=== PATIENT | female | born 1990 | race Caucasian/White ===

== ENCOUNTER 2023-12-06 05:48 | Inpatient (IN) ==
--- NOTE | 2023-11-29 11:40 | PAT Medication Instructions ---
Medication Instructions Date of Service November 29, 2023 Home Medications Medication Instructions Recorded acetone (urine) test (Ketone Urine #50 ea 07/20/23 Test strips) blood sugar diagnostic (OneTouch #150 ea 07/20/23 Verio test strips) blood-glucose meter (OneTouch #1 ea 07/20/23 Verio Reflect Meter) lancets 33 gauge (OneTouch Delica #150 ea 07/20/23 Plus Lancet) aspirin 81 mg chewable tablet 81 mg PO QAM labetalol 300 mg tablet 500 mg PO TID nifedipine 60 mg PO BID vit no.95-ferrous fumarate 28 mg-folic acid 800 mcg tablet () 1 tab PO QPM famotidine 20 mg tablet (Pepcid) 20 mg PO BID ASK your prescriber and surgeon aspirin 81 mg chewable tablet 81 mg PO QAM Take morning of surgery With a small sip of water, OTHERWISE NOTHING TO EAT OR DRINK AFTER MIDNIGHT: labetalol 300 mg tablet 500 mg PO TID nifedipine 60 mg PO BID famotidine 20 mg tablet (Pepcid) 20 mg PO BID Take evening before surgery labetalol 300 mg tablet 500 mg PO TID nifedipine 60 mg PO BID vit no.95-ferrous fumarate 28 mg-folic acid 800 mcg tablet () 1 tab PO QPM famotidine 20 mg tablet (Pepcid) 20 mg PO BID Other Notes If you have any questions please call us at [phone] or [phone] or [phone] or [phone]
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
[2023-12-06] MEDS: LACTATED RINGER'S 1,000 ML IV SCH ×3 (06:32→12:05)
[2023-12-06 06:40] LABS: Basophils # (auto) 0.05 K/uL (0.00-0.20); Basophils % (auto) 0.7 %; Eosinophils # (auto) 0.07 K/uL (0.00-0.50); Eosinophils % (auto) 0.9 %; Hematocrit (blood only) 40.4 % (37.0-47.0); Hemoglobin 13.3 g/dl (12.0-16.0); Immature Granulocytes # (auto) 0.09 K/uL (0.01-0.20); Immature Granulocytes % (auto) 1.2 %; Lymphocytes # (auto) 2.22 K/uL (1.20-3.40); Lymphocytes % (auto) 29.5 %; Mean Corpuscular Hemoglobin 26.2 pg (25.0-34.0); Mean Corpuscular Hgb Conc 32.9 g/dL (32.0-36.0); Mean Corpuscular Volume 79.5 fL (80.0-100.0); Mean Platelet Volume 11.2 fL (9.4-12.4); Monocytes # (auto) 0.38 K/uL (0.11-0.59); Monocytes % (auto) 5.1 %; Neutrophils # (auto) 4.71 K/uL (1.40-6.50); Neutrophils % (auto) 62.6 %; Nucleated RBC # (auto) 0.03 K/uL (0.00-0.12); Nucleated RBC % (auto) 0.4 %; Platelet Count 225 K/uL (130-400); RDW Coefficient of Variation 15.4 % (11.5-14.5); RDW Standard Deviation 43.6 fL (36.4-46.3); Red Blood Count 5.08 M/uL (4.20-5.40); White Blood Count 7.52 K/ul (4.8-10.8)
[2023-12-06] MEDS ORDERED: PHENYLEPHRINE HCL 10 MG/ML VIAL ONE (06:49)
[2023-12-06] MEDS ORDERED: fentaNYL citrate PF 100 MCG/2 ML VIAL ONE ×2 (06:49→08:49)
[2023-12-06] MEDS ORDERED: MoRPHine SULFATE PF 1 MG/ML 10 ML AMP/VIAL ONE (06:49)
[2023-12-06] MEDS ORDERED: OXYTOCIN 10 UNITS/ML VIAL ONE ×2 (06:49→07:44)
[2023-12-06 06:55] LABS: Calcium 8.6 mg/dl (8.6-10.3); Creatinine Clr Calc Pharmacy 127.7 ml/min; Est GFR (African American) 106.6 ml/min; Potassium 4.5 mmol/L (3.5-5.1)
[2023-12-06] MEDS: ONDANSETRON INJ 2 MG/ML 2 ML VIAL ONE (06:57)
[2023-12-06] MEDS ORDERED: ePHEDrine sulfate 50 MG/ML AMP IV PRN (07:04)
[2023-12-06] MEDS ORDERED: NALOXONE HCL 1 MG in SODIUM CHLORIDE 0.9% 1,000 ML IV PRN (07:04)
[2023-12-06] MEDS ORDERED: diphenhydrAMINE 50 MG/ML VIAL IV PRN (07:04)
[2023-12-06] MEDS ORDERED: NALOXONE HCL 0.4 MG/1 ML VIAL/CARP IV PRN (07:04)
[2023-12-06] MEDS ORDERED: MoRPHine SULFATE 2 MG/ML CARP IV PRN (07:04)
[2023-12-06] MEDS ORDERED: LACTATED RINGER'S 500 ML IV PRN (07:04)
[2023-12-06] MEDS ORDERED: ONDANSETRON INJ 2 MG/ML 2 ML VIAL IV PRN ×2 (07:04→07:08)
[2023-12-06] MEDS ORDERED: NALOXONE HCL 0.08 MG in SYRINGE 1.8 ML IV PRN (07:04)
[2023-12-06 07:08] LABS: Partial Thromboplastin Time 27 Seconds (21-31); Prothrombin Time 11.2 Seconds (9.0-12.0)
[2023-12-06] MEDS ORDERED: DC INTRASPINAL MORPHINE SCH (07:15)
[2023-12-06] MEDS ORDERED: NO NARCOTICS OR SEDATIVES SCH (07:15)
--- NOTE | 2023-12-06 07:26 | History & Physical Bridge Note ---
Date of Service December 06, 2023 History & Physical Bridge Note I have examined the patient, reviewed the History & Physical and in the interval since the performance of the History & Physical I have noted the following changes of clinical significance: no changes noted
[2023-12-06] MEDS: cefOXitin 2,000 MG in DEXTROSE 5 % MINI-B 50 ML IV SCH (07:32)
[2023-12-06] MEDS: CITRIC ACID/SODIUM CITRATE 15 ML UDC PO SCH (07:38)
[2023-12-06] MEDS: OXYTOCIN 10 UNITS/ML 10ML VIAL IM ONE (08:24)
[2023-12-06 08:53] LABS: Base Excess Cord Arterial Bld -5.5 mEq/L (-9-1.8); Base Excess Cord Venous Blood -2.2 mEq/L (-7.7-1.9); CO2 Cord Arterial Blood 82 mmHg (39.1-73.5); Cord Venous Blood HCO3 26 mmol/L (18.4-26.8); Cord Venous Blood PCO2 53 mmHg (30.4-57.2); Cord Venous Blood PO2 26 mmHg (14.1-43.3); Cord Venous Blood pH 7.29 (7.20-7.44); HCO3 Cord Arterial Blood 27 mmol/L (19.7-28.5); O2 Saturation Cord Venous Bld < 60.0 % (<68); Oxygen Sat Cord Arterial Blood < 60.0 % (<60); PO2 Cord Arterial Blood < 20 mmHg (4.1-31.7); pH Cord Arterial Blood 7.12 (7.1-7.38)
[2023-12-06] MEDS ORDERED: HYDROCORTISONE ACETATE 25 MG SUPP PR PRN (09:07)
[2023-12-06] MEDS ORDERED: BENZOCAINE 20% SPRY 85 APPLN/85 GM CAN EXT PRN (09:07)
[2023-12-06] MEDS ORDERED: SENNA 8.6 MG TAB PO PRN (09:07)
--- NOTE | 2023-12-06 09:16 | Operative Report ---
Post Operative Report Pre & Post Diagnosis Operation Date: 12/06/23 07:30 Pre-Op Diagnosis: Severe Hypertension, Gestastional Diabetes Post-Op Diagnosis: Same; Delivery of Live female child @0805 I identified the patient and participated in the time-out.: Yes Procedure Operation Date: 12/06/23 07:30 Actual Procedures p Section in LD(Bilateral) - Tanner Figueroa MD Surgeon Tanner Figueroa MD Silk Screen Printer Ajith Estimated Blood Loss 600 Findings Consistent with Post-Op Diagnosis light meconium live infant Specimens placenta Drains none Anesthesia Type Spinal Complications none Indications severe hypertension gestational diabetes graves disease Description of Procedure Patient was brought to the OR correctly identified by armband and conversation. Styles catheter was inserted aseptically into the bladder connected to gravity drainage. Lower abdomen was painted with an alcohol-based sterilizing solution. Compression stockings were applied. Patient was draped in usual sterile fashion. Adequacy of the anesthesia was checked and found to be good. Pfannenstiel incision was made and carried down to the anterior fascia by blunt and sharp dissection. Fascia was incised transversely from the underlying muscle by blunt and sharp dissection. Recti muscles were in the midline. Peritoneum was carefully raised and entered. Lower uterine segment was exposed. An incision was made above the vesicouterine fold. The bladder was advanced out of the operative field. Lower uterine segment was scored with a knife and then entered with the scissors. Light meconium was noted at this time. A pectus retractor was applied to the infant's head. Pressure was applied. There was some difficulty in delivering the head. Recti muscles on the left side were cut in a small area to provide additional room. Head was then delivered was suctioned through the mouth and the nose. Cord was allowed to pulse for 1 minute. Clamped and cut. Infant was attended to by the cement loader who is scrubbed and present at the time of the delivery. Cord was sent for cord gases. Cord blood was taken. The placenta was removed manually. Uterus tubes and ovaries were brought out through the incision. Lower uterine segment was exposed. Uterus was wiped clean with a clean sponge. 10 units of Pitocin was injected into the muscle. The lower uterine defect was approximated in 2 layers. First layer was a running heavy duty chromic layer second was a layer of Vicryl placed in a horizontal fascia. Approximating the fascial layer. 2 interrupted [id number] sutures were also placed to can help control the bleeding. Then the peritoneum was brought together over this approximation. This restored the integrity of the vesicouterine fold. The incision was checked found to be hemostatic. Pelvis was cleansed of all blood clots and debris. Uterus tubes and ovaries were reinserted into the abdomen. A careful anatomical approximation of the anterior abdominal wall was performed. The peritoneum was approximated with a mattress suture of chromic catgut. The small cut on the right rectus muscle was repaired with a running chromic gut suture. The rectus muscles were then approximated. This was done with a Chromic Gut suture. Fascia was closed with heavy-duty Vicryl. The fascial defect was clamped on the right angle than the left angle. And then approximated with wide bites of Vicryl with a interlocking suture. Incision was then cleaned. Subcutaneous was approximated with a running chromic and then the skin edge approximated with staple clips patient tolerated procedure well left the OR in good condition. I attest to the content of the Intraoperative Record and any orders documented therein. Any exceptions are noted below.
[2023-12-06] MEDS: OXYTOCIN 30 UNITS/LR 1,003 ML IV SCH (09:47)
[2023-12-06] MEDS: NIFEdipine EXTENDED REL 30 MG TABCR PO SCH (10:31)
--- NOTE | 2023-12-06 11:06 | Anesthesiology Progress Note ---
Date of Service December 06, 2023 Anesthesia Post Procedure Vital Signs Vital Signs: Temp Pulse Resp BP Pulse Ox 12/06/23 11:05 69 97 12/06/23 11:00 66 97 12/06/23 10:57 62 130/83 12/06/23 10:55 66 99 12/06/23 10:50 70 97 12/06/23 10:47 67 127/84 12/06/23 10:45 18 12/06/23 10:45 64 98 12/06/23 10:40 66 98 12/06/23 10:37 67 158/92 H 12/06/23 10:35 68 98 12/06/23 10:30 62 98 12/06/23 10:27 65 149/87 H 12/06/23 10:25 62 99 12/06/23 10:20 70 98 12/06/23 10:17 63 145/84 H 12/06/23 10:15 18 12/06/23 10:15 69 98 12/06/23 10:10 66 98 12/06/23 10:07 70 149/86 H 12/06/23 10:05 18 12/06/23 10:05 71 98 12/06/23 10:00 65 98 12/06/23 09:58 66 127/81 12/06/23 09:57 67 143/96 H 12/06/23 09:55 18 12/06/23 09:55 69 98 12/06/23 09:50 68 98 12/06/23 09:47 70 139/86 12/06/23 09:45 18 12/06/23 09:45 66 99 12/06/23 09:40 63 97 12/06/23 09:37 60 135/83 12/06/23 09:35 18 12/06/23 09:35 67 97 12/06/23 09:30 63 97 12/06/23 09:27 60 126/77 12/06/23 09:25 18 12/06/23 09:25 67 97 12/06/23 09:22 70 93 12/06/23 09:20 67 96 12/06/23 09:16 67 93 12/06/23 09:15 36.4 C L 18 12/06/23 09:15 62 97 12/06/23 09:14 68 119/74 12/06/23 07:40 36.4 C L 18 12/06/23 06:07 80 116/76 Pain Intensity Lower Abdomen: Pain Intensity: 6 Transfer of Care Handoff Completed per policy Notes Mental Status: alert / awake / arousable and participated in evaluation Patient Amnestic to Procedure: Yes Nausea / Vomiting: adequately controlled Pain: adequately controlled Airway Patency, RR, SpO2: stable & adequate BP & HR: stable & adequate Hydration State: stable & adequate Anesthetic Complications: no major complications apparent and Pt Satisfied with anesthetic care
[2023-12-06] MEDS: KETOROLAC 30 MG/ML VIAL IV PRN (11:31)
[2023-12-06] MEDS: HYDROmorphone INJ 0.5 MG/0.5 ML SYR IV PRN (12:50)
[2023-12-06] MEDS: SIMETHICONE 80 MG CHEW PO SCH (14:21)
[2023-12-06] MEDS: NALBUPHINE HCL 5 MG in SYRINGE 0 ML IV PRN (18:10)
[2023-12-06] MEDS: DOCUSATE SODIUM 100 MG CAP PO SCH (20:58)
[2023-12-06] MEDS: LABETALOL HCL 100 MG TAB PO SCH (21:00)
[2023-12-07] MEDS ORDERED: MEPERIDINE HCL 50 MG/ML CARP IV PRN (01:04)
[2023-12-07] MEDS ORDERED: PROMETHAZINE HCL 25 MG in SODIUM CHLORIDE 0.9% 50 ML IV PRN (01:04)
[2023-12-07] MEDS ORDERED: ZOLPIDEM TARTRATE 5 MG TAB PO PRN (01:04)
[2023-12-07] MEDS ORDERED: diphenhydrAMINE 50 MG/ML VIAL IV PRN (01:04)
[2023-12-07] MEDS ORDERED: ONDANSETRON INJ 2 MG/ML 2 ML VIAL IV PRN (01:04)
[2023-12-07] MEDS ORDERED: KETOROLAC 30 MG/ML VIAL IV PRN (01:04)
[2023-12-07] MEDS ORDERED: diphenhydrAMINE Capsule 25 MG CAP PO PRN (01:04)
[2023-12-07] MEDS: oxyCODONE/ACETAMINOPHEN 5mg/325mg TAB PO PRN (01:18)
[2023-12-07] MEDS: IBUPROFEN 600 MG TAB PO PRN (04:35)
[2023-12-07 07:12] LABS: Basophils # (auto) 0.05 K/uL (0.00-0.20); Basophils % (auto) 0.4 %; Eosinophils # (auto) 0.08 K/uL (0.00-0.50); Eosinophils % (auto) 0.7 %; Hematocrit (blood only) 34.2 % (37.0-47.0); Hemoglobin 10.7 g/dl (12.0-16.0); Immature Granulocytes # (auto) 0.08 K/uL (0.01-0.20); Immature Granulocytes % (auto) 0.7 %; Lymphocytes # (auto) 2.44 K/uL (1.20-3.40); Lymphocytes % (auto) 21.3 %; Mean Corpuscular Hemoglobin 25.6 pg (25.0-34.0); Mean Corpuscular Hgb Conc 31.3 g/dL (32.0-36.0); Mean Corpuscular Volume 81.8 fL (80.0-100.0); Mean Platelet Volume 11.1 fL (9.4-12.4); Monocytes # (auto) 0.52 K/uL (0.11-0.59); Monocytes % (auto) 4.5 %; Neutrophils # (auto) 8.28 K/uL (1.40-6.50); Neutrophils % (auto) 72.4 %; Platelet Count 196 K/uL (130-400); RDW Coefficient of Variation 15.5 % (11.5-14.5); RDW Standard Deviation 45.1 fL (36.4-46.3); Red Blood Count 4.18 M/uL (4.20-5.40); White Blood Count 11.45 K/ul (4.8-10.8)
--- NOTE | 2023-12-07 07:47 | Obstetrical Progress Note ---
Date of Service December 07, 2023 Assessment & Plan Admission and Anticipated Discharge Date Admission Date: December 06, 2023 Subjective abdomen soft and non tender bandage removed incision is clean and dry bowel sounds present no calf tenderness vaginal bleeding scant hgb 10.7 Results & Data Vital Signs (Past 12 Hours) Vital Signs Temp Pulse Resp BP Pulse Ox O2 Del Method 12/07/23 04:30 Room Air 12/07/23 04:30 36.5 C 69 18 109/70 95 Room Air 12/07/23 01:05 20 95 12/07/23 00:00 18 95 12/06/23 23:00 18 95 12/06/23 23:00 36.8 C 76 18 124/77 95 Room Air 12/06/23 22:10 16 95 12/06/23 21:02 18 95 12/06/23 21:02 74 18 120/74 95 Room Air 12/06/23 20:20 16 95
[2023-12-07] MEDS: MAGNESIUM HYDROXIDE SUSP 30 ML UDC PO PRN (08:53)
[2023-12-07] MEDS: FERROUS SULFATE 325 MG TAB PO SCH (08:53)
[2023-12-07] MEDS: PRENATAL VITAMIN 1 TAB PO SCH (08:53)
[2023-12-07] MEDS: DIPHTHER/TETAN/PERTUS Vaccine (Tdap, Adol/Adult) 0.5mL IM ONE (17:25)
[2023-12-07] MEDS: MoRPHine SULFATE PF 1 MG/ML 10 ML AMP/VIAL INT SPINAL ONE (19:36)
[2023-12-07] MEDS: SODIUM CHLORIDE 0.9% 1,000 ML IV SCH (19:36)
[2023-12-07] MEDS: bisacodyL 5 MG TABEC PO SCH (20:20)
[2023-12-08 06:24] LABS: Hematocrit (blood only) 33.9 % (37.0-47.0)
--- NOTE | 2023-12-08 08:00 | Obstetrical Progress Note ---
Date of Service December 08, 2023 Assessment & Plan Admission and Anticipated Discharge Date Admission Date: December 06, 2023 Subjective abdomen soft and non tender incision is clean and dry no calf tenderness ambulating well blood pressure elevated vaginal bleeding scant hgb 11.0 Results & Data Vital Signs (Past 12 Hours) Vital Signs Temp Pulse Resp BP Pulse Ox O2 Del Method 12/07/23 22:58 36.7 C 74 18 133/85 96 Room Air
--- NOTE | 2023-12-08 08:23 | Discharge Summary ---
Date of Service December 08, 2023 Discharge Data Consultations 12/06/23 06:04 Consult Anesthesiology Stat Procedures Performed Operation Date: 12/06/23 07:30 Actual Procedures p Section in LD(Bilateral) - Tanner Figueroa MD Hospital Course (1) Status post : Plan Patient is a 33-year-old 1 para 1 followed in our office for care and delivery. Her had multiple complications. She had Graves' disease. Severe hypertension. Gestational diabetes. She was well dated with a first trimester ultrasound. She had part of her care at [facility]. Eventually she was on high doses of both Procardia and labetalol in order to control the blood pressure. She checked her sugars regularly to control the gestational diabetes. After approximately 32 weeks she received a biophysical profile weekly along with an NST weekly. Her hypertension was well-controlled. She also took baby aspirin during her . She did received Celestone shots the and Monday prior to delivery. Monday prior to delivery she had a 8 out of 8 biophysical profile. The day of admission she was taken to the OR where she underwent primary low segment section. Light meconium was noted in the amniotic fluid at this time. weighed 7 pounds 14 ounces at 37 weeks and 2 days gestation. Postoperatively her hemoglobin was 11. He did require some postoperative antihypertensive meds. She was instructed to follow her blood pressures at [facility]. And she had prescriptions for both Procardia XL. And labetalol at home. She was instructed to call if she had any difficulties controlling her blood pressure. And instructed to return in 1 week for removal of the cece.
[2023-12-08] MEDS ORDERED: LABETALOL HCL 100 MG TAB PO PRN (08:44)
[2023-12-08] MEDS ORDERED: bisacodyL 10 MG SUPP PR PRN (09:08)
[2023-12-08] MEDS: NIFEdipine EXTENDED REL 30 MG TABCR PO SCH (09:14)
[2023-12-09 02:27] LABS: Basophils # (auto) 0.02 K/uL (0.00-0.20); Basophils % (auto) 0.2 %; Eosinophils # (auto) 0.09 K/uL (0.00-0.50); Eosinophils % (auto) 0.9 %; Hematocrit (blood only) 35.2 % (37.0-47.0); Hemoglobin 11.3 g/dl (12.0-16.0); Immature Granulocytes # (auto) 0.07 K/uL (0.01-0.20); Immature Granulocytes % (auto) 0.7 %; Lymphocytes # (auto) 2.07 K/uL (1.20-3.40); Lymphocytes % (auto) 21.5 %; Mean Corpuscular Hemoglobin 26.5 pg (25.0-34.0); Mean Corpuscular Hgb Conc 32.1 g/dL (32.0-36.0); Mean Corpuscular Volume 82.6 fL (80.0-100.0); Mean Platelet Volume 10.4 fL (9.4-12.4); Monocytes % (auto) 4.1 %; Neutrophils % (auto) 72.6 %; Platelet Count 247 K/uL (130-400); RDW Standard Deviation 47.7 fL (36.4-46.3); Red Blood Count 4.26 M/uL (4.20-5.40); White Blood Count 9.65 K/ul (4.8-10.8)
--- NOTE | 2023-12-09 02:32 | Obstetrical Progress Note ---
Date of Service December 09, 2023 Assessment & Plan Admission and Anticipated Discharge Date Admission Date: December 06, [address] Figueroa I was called that patient complained of blurry vision, headache, upper abdominal pain and incisional pain. She has history of migraines she was taking Tylenol only. Per nursing team she has been looking good clinically, moving around with the baby and trying for breast-feeding. When I entered the room she was standing and holding the baby moving around without any discomfort. She laid down to bed with the baby by herself without assistance. Her abdomen is soft nontender, incision is appropriately tender and clean dry intact. Her bleeding is minimal, Extremities are nontender, trace edema, DTR 3+ bilaterally, no clonus, Neurologic exam is grossly intact and she can see objects. Her blood pressure has been normal, The labetalol was ordered by Dr. Figueroa as 500 mg twice daily as needed if blood pressure is over 140/90, She is on nifedipine 60 mg XL daily, Assessment and plan, 33-year-old -0-0-1 status post primary on December 05, On labetalol and Procardia as above, Vital signs stable afebrile, Blood pressures are under control, Physical exam, neurologic exam normal, Plan to order labs and change labetalol dose to 100 mg twice daily, Magnesium oxide twice daily, start now, continue to monitor closely, All questions were answered. Results & Data Vital Signs (Past 12 Hours) Vital Signs Temp Pulse Resp BP Pulse Ox O2 Del Method 12/09/23 01:45 132/75 12/08/23 23:30 36.8 C 91 H 20 129/75 98 Room Air 12/08/23 19:45 36.8 C 79 18 120/74 98 Room Air 12/08/23 17:15 119/71 12/08/23 15:35 36.8 C 82 17 123/62 96 Room Air
[2023-12-09 02:33] LABS: Albumin Globulin Ratio 0.9 (0.9-2); Bilirubin,Total 0.3 mg/dl (0.2-1.0); Calcium 8.5 mg/dl (8.6-10.3); Creatinine Clr Calc Pharmacy 107.3 ml/min; Est GFR (African American) 86.3 ml/min; Est GFR (Non-African American) 74.5 ml/min; Globulin 3.5 gm/dl (2.5-4.0); Potassium 4.2 mmol/L (3.5-5.1); Total Protein 6.5 gm/dl (6.0-8.3)
[2023-12-09] MEDS: LABETALOL HCL 100 MG TAB PO SCH (02:34)
[2023-12-09] MEDS: MAGNESIUM OXIDE 400 MG TAB PO SCH (02:35)
[2023-12-09] MEDS: oxyCODONE/ACETAMINOPHEN 10-325 TAB PO PRN (03:44)
--- NOTE | 2023-12-09 10:15 | Obstetrical Progress Note ---
Date of Service December 09, 2023 Subjective Ambulation: ambulating normally Voiding: no voiding problems Passing Gas:: No Diet Tolerance:: regular diet Feeding Type:: breast feeding Current Pain Level(1-10): 0 doing well. plans for d/c Physical Exam Constitutional WD/WN, vitals as above Gastrointestinal (Abdomen) Inspection/Auscultation: abdomen normal to inspection incision c/d/i Musculoskeletal Extremities: extremities normal to inspection Skin no rashes, warm and dry Neurologic patellar DTR's 2+ bilat, sensation intact Psychiatric A+Ox3, euthymic affect Results & Data Vital Signs (Past 12 Hours) Vital Signs Temp Pulse Resp BP Pulse Ox O2 Del Method 12/09/23 07:30 36.6 C 75 18 131/75 Room Air 12/09/23 01:45 132/75 12/08/23 23:30 36.8 C 91 H 20 129/75 98 Room Air Laboratory Results Laboratory Results - last 48 hr 12/08/23 12/09/23 05:57 02:04 WBC 9.65 RBC 4.26 Hgb 11.0 L 11.3 L Hct 33.9 L 35.2 L MCV 82.6 MCH 26.5 MCHC 32.1 RDW Std Deviation 47.7 H RDW Coeff of Vu 16.0 H Plt Count 247 MPV 10.4 Immature Gran % (Auto) 0.7 Neut % (Auto) 72.6 Lymph % (Auto) 21.5 Logan % (Auto) 4.1 Eos % (Auto) 0.9 Baso % (Auto) 0.2 Neut # (Auto) 7.00 H Lymph # (Auto) 2.07 Logan # (Auto) 0.40 Eos # (Auto) 0.09 Baso # (Auto) 0.02 Immature Gran # (Auto) 0.07 Sodium 135 L Potassium 4.2 Chloride 104 Carbon Dioxide 23 Anion Gap 8 BUN 19 Creatinine 1.00 Est Cr Clr Drug Dosing 107.3 Est GFR ( Amer) 86.3 Est GFR (Non-Af Amer) 74.5 BUN/Creatinine Ratio 19.0 Glucose 109 H Calcium 8.5 L Total Bilirubin 0.3 AST 31 ALT 27 Alkaline Phosphatase 158 H Total Protein 6.5 Albumin 3.0 L Globulin 3.5 Albumin/Globulin Ratio 0.9
== END 2023-12-09 14:00 | disposition home or self-care (01) | DRG 788 ==
LOC: 4S1 05:48 → EDSTATUS 07:30 → 4E2 12:29
DX: Z3A.37 37 weeks gestation of pregnancy; Z79.899 Other long term (current) drug therapy; O14.14 Severe pre-eclampsia complicating childbirth; Z37.0 Single live birth; Z79.82 Long term (current) use of aspirin; O24.420 Gestational diabetes mellitus in childbirth, diet controlled; O77.0 Labor and delivery complicated by meconium in amniotic fluid; O99.284 Endocrine, nutritional and metabolic diseases complicating childbirth; E05.00 Thyrotoxicosis with diffuse goiter without thyrotoxic crisis or storm

== ENCOUNTER 2024-08-27 16:17 | Inpatient (IN) ==
--- NOTE | 2024-08-27 16:21 | ED Triage Note ---
Date of Service August 27, 2024 Provider in Triage Author: Angel Andrade History of Present Illness This patient was briefly evaluated while in triage. An abbreviated physical exam was performed. This patient is a 33-year-old Female who presents to the ED for evaluation upper abdominal under upper ribs started this morning nausea and vomiting-last few episodes have had some blood in it hx of appy and Physical Exam GENERAL: NAD CARDIOVASCULAR: RRR RESPIRATORY: CTA ABDOMEN: BS x 4. Upper abdominal TTP. Initial orders for labs and / or imaging were placed and patient was placed in the waiting area until a bed is available. Please see further documentation for the full ED course.
[2024-08-27 17:46] LABS: Basophils # (auto) 0.04 K/uL (0.00-0.20); Basophils % (auto) 0.4 %; Eosinophils # (auto) 0.04 K/uL (0.00-0.50); Eosinophils % (auto) 0.4 %; Hematocrit (blood only) 47.5 % (37.0-47.0); Hemoglobin 15.2 g/dl (12.0-16.0); Immature Granulocytes # (auto) 0.02 K/uL (0.01-0.20); Immature Granulocytes % (auto) 0.2 %; Lymphocytes # (auto) 1.45 K/uL (1.20-3.40); Lymphocytes % (auto) 15.4 %; Mean Corpuscular Hemoglobin 24.4 pg (25.0-34.0); Mean Corpuscular Volume 76.4 fL (80.0-100.0); Mean Platelet Volume 9.5 fL (9.4-12.4); Monocytes # (auto) 0.42 K/uL (0.11-0.59); Monocytes % (auto) 4.5 %; Neutrophils # (auto) 7.43 K/uL (1.40-6.50); Neutrophils % (auto) 79.1 %; Platelet Count 319 K/uL (130-400); RDW Coefficient of Variation 13.4 % (11.5-14.5); Red Blood Count 6.22 M/uL (4.20-5.40)
[2024-08-27 18:00] LABS: Pregnancy Test, Serum Negative (Negative)
[2024-08-27 18:02] LABS: Albumin Globulin Ratio 1.2 (0.9-2); Albumin Level 4.5 gm/dl (3.4-5.0); BUN Creatinine Ratio 17.6 (10-20); Calcium 9.4 mg/dl (8.6-10.3); Creatinine Clr Calc Pharmacy 147.8 ml/min; Globulin 3.9 gm/dl (2.5-4.0); Potassium 3.9 mmol/L (3.5-5.1); Total Protein 8.4 gm/dl (6.0-8.3)
[2024-08-27] MEDS: OPTIRAY 320 100ml IV ONE (18:31)
--- NOTE | 2024-08-27 18:46 | CT Scan Report ---
EXAM: CT Abdomen and Pelvis With Intravenous Contrast INDICATION: Awakened with severe pain in the rib cage and upper stomach and has been vomiting blood. TECHNIQUE: Axial computed tomography images of the abdomen and pelvis with intravenous contrast. Sagittal and coronal reformatted images were created and reviewed. This CT exam was performed using one or more of the following dose reduction techniques: automated exposure control, adjustment of the mA and/or kV according to patient size, and/or use of iterative reconstruction technique. CONTRAST: 93ml of Optiray 320 was administered intravenously. COMPARISON: 02/06/2024 FINDINGS: Limitations: None. Lung bases: No abnormality noted. Pleural space: No visualized pleural effusion or pneumothorax. Heart: No abnormality noted. Mediastinum: No abnormality noted. ABDOMEN: Liver: No abnormality noted. Gallbladder and bile ducts: The gallbladder is dilated and moderately thickened, mildly inflamed and contains stones. No ductal dilatation or stone. Pancreas: Homogeneous enhancement. No mass, inflammation or ductal dilation. Spleen: No significant abnormality noted. Adrenals: No significant abnormality noted. Kidneys and ureters: Normal enhancement. No mass, hydronephrosis or visualized stone. Stomach and bowel: Scattered colonic diverticulosis noted. No diverticulitis or obstruction. PELVIS: Appendix: Probable appendectomy. Bladder: No filling defects to suggest mass or large stone. No inflammation. Reproductive: No abnormalities noted. ABDOMEN and PELVIS: Intraperitoneal space: No free air. No significant fluid collection. Bones/joints: No acute changes. Soft tissues: No significant abnormality noted. Vasculature: No abdominal aortic aneurysm. Lymph nodes: No pathologically enlarged lymph nodes. IMPRESSION: Cholelithiasis with acute cholecystitis. ACT 112: Negative or not required by law. Electronically signed by Miranda Cruz 08-27-2024 6:45 PM
[2024-08-27] MEDS: ONDANSETRON INJ 2 MG/ML 2 ML VIAL IV STA (19:33)
[2024-08-27] MEDS: MoRPHine SULFATE 4 MG/ML 1 ML CARP\\VIAL IV STA (19:37)
[2024-08-27] MEDS: PROMETHAZINE 6.25 MG/50.25 ML BAG IV STA (19:40)
[2024-08-27] MEDS: SODIUM CHLORIDE 0.9% 1,000 ML IV ONE (19:42)
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
[2024-08-27] MEDS: FAMOTIDINE 20MG IV PUSH 20 MG/5 ML SYR IV STA (20:17)
--- NOTE | 2024-08-27 20:19 | Surgery Consultation ---
Date of Consultation August 27, 2024 Assessment & Plan (1) Acute cholecystitis: Patient is a 33-year-old female who presented to the ED this evening for ongoing upper abdominal pain, nausea and vomiting that started this morning. Patient was worked up in the ED and her WBC and LFTs are wnl. Patient's CT with results of cholelithiasis and thickening of the gallbladder concerning for acute cholecystitis. Patient was seen and evaluated in the ED this evening. She is resting comfortably in bed, stable vitals, and is nontoxic appearing. Patient does have TTP in the RUQ on exam. Reviewed patient's case with attending javad business continuity consultant, Dr. Torres, and surgical team recommends the following: -Clear liquids for now, NPO after midnight -Pain control as needed -IV antibiotics with Zosyn -Recommend gallbladder US, if consistent with acute cholecystitis without any CBD involvement will plan for cholecystectomy tomorrow. -Medical management of chronic conditions per primary team, surgery will continue to follow Supervising Physician Co-Signing Physician Notes I have discussed this case with the surgical PA. I agree with the plan. History of Present Illness Reason for Consultation: Acute cholecystitis History of Present Illness Patient is a 33-year-old female who presented to the ED with complaints of abdominal pain. Patient states this morning she started with upper epigastric abdominal pain with associated nausea and episodes of emesis. Patient states she tried to eat some toast earlier to help settle her stomach however it didn't work. She states she has never had pain like this in the past and is unsure if anything makes it better or worse. The pain has been constant in her upper abdomen since this morning and states it does not radiate. She did have some diarrhea a few days ago but this has since seemed to resolve. Over the last few days she has felt more bloated and overall has had decreased appetite. She denies any fevers, chills, CP or SOB with the onset of her symptoms. Due to her symptoms persisting throughout the day she came to the ED for evaluation. Upon workup imaging was concerning for acute cholecystitis. Patient was seen and evaluated at bedside this evening. She is resting comfortably in bed, stable vitals, and is nontoxic appearing. She states she is still having abdominal pain however her nausea and vomiting has since subsided. Patient on exam does have tenderness in her epigastric and RUQ region. She states she has had an open appendectomy as child along with a 8 months ago. Allergies Allergy/AdvReac Type Severity Reaction Status Date / Time No Known Drug Allergies Allergy Unknown Verified 05/23/24 15:15 Home Medications Medication Instructions Recorded Confirmed Type acetone (urine) test (Ketone Urine #50 ea 07/20/23 11/09/23 Rx Test strips) blood sugar diagnostic (OneTouch #150 ea 07/20/23 11/09/23 Rx Verio test strips) blood-glucose meter (OneTouch #1 ea 07/20/23 11/09/23 Rx Verio Reflect Meter) lancets 33 gauge (OneTouch Delica #150 ea 07/20/23 11/09/23 Rx Plus Lancet) levothyroxine 50 mcg tablet 50 mcg PO DAILY #90 tabs 04/09/24 05/23/24 Rx semaglutide 0.25 mg or 0.5 mg (2 0.25 mg (0.368 mL) subcut .weekly 05/23/24 05/23/24 Rx mg/3 mL) subcutaneous pen injector #3 mL (Peel) Patient History Medical History Restless leg syndrome Peripheral edema distal lower extremities bilat-denies change or worsening since seeing OB/PCP GERD (gastroesophageal reflux disease) controlled, stable per pt Graves disease [facility] endocrine Hypothyroidism [facility] endocrine Migraine Surgical History H/O lymph node biopsy Left and right groin, pathology = most suggestive of a bacterial lymphadenitis Family history of reaction to anesthesia Father- respiratory problems with anesthesia Family History Father Family history of diabetes mellitus Cardiac disorder [place] at age 54 y/o Mother Diabetes Cardiac disorder Hypertension Grandfather Diabetes Grandmother Diabetes Cardiac disorder Father Hypertension Uncle Thyroid disease Aunt No problems noted. Denies family history of Family hx of colon cancer Family history of complications due to general anesthesia Breast cancer Bleeding disorder Cancer Social History Smoking Status: Never smoker Second Hand Exposure: No; Do You Dip or Chew Tobacco: No; Tobacco Cessation Education Requested by Patient: No Hx Alcohol Use: No Hx Substance Use: No Preferred Language: Icelandic Communication Ability: Effective Visual Impairment: No Limitations Military Cook Required: No Beliefs That Will Affect Care: None marital status: Current Living Situation: Significant Other Current Living Situation Comment: sister and current occupational status: unemployed Other Information That Helps Us Care for You: No Feels Safe at Home: Yes Safety Concerns: Feels Safe At This Time Diet: diabetic Assistive Devices: Glasses Review of Systems Review of Systems: All systems reviewed & are unremarkable except as noted in HPI & below Physical Exam Constitutional: WD/WN, vitals as above Respiratory: normal respiratory effort, lungs clear to auscultation Cardiovascular: RRR, no murmur, no edema Gastrointestinal (Abdomen): Abdomen soft, nondistended, +TTP in the RUQ without rebound or guarding. +Healed scar appreciated Skin: no rashes, warm and dry Psychiatric: A+Ox3, euthymic affect Results & Data Vital Signs (Past 12 Hours) Vital Signs Temp Pulse Pulse Resp BP BP Pulse Ox 08/27/24 19:18 72 20 134/88 98 08/27/24 16:19 36.7 C 74 18 142/100 H 100 O2 Del Method 08/27/24 19:18 Room Air 08/27/24 16:19 Room Air Diagnostic Findings EXAM: CT Abdomen and Pelvis With Intravenous Contrast INDICATION: Awakened with severe pain in the rib cage and upper stomach and has been vomiting blood. TECHNIQUE: Axial computed tomography images of the abdomen and pelvis with intravenous contrast. Sagittal and coronal reformatted images were created and reviewed. This CT exam was performed using one or more of the following dose reduction techniques: automated exposure control, adjustment of the mA and/or kV according to patient size, and/or use of iterative reconstruction technique. CONTRAST: 93ml of Optiray 320 was administered intravenously. COMPARISON: 02/06/2024 FINDINGS: Limitations: None. Lung bases: No abnormality noted. Pleural space: No visualized pleural effusion or pneumothorax. Heart: No abnormality noted. Mediastinum: No abnormality noted. ABDOMEN: Liver: No abnormality noted. Gallbladder and bile ducts: The gallbladder is dilated and moderately thickened, mildly inflamed and contains stones. No ductal dilatation or stone. Pancreas: Homogeneous enhancement. No mass, inflammation or ductal dilation. Spleen: No significant abnormality noted. Adrenals: No significant abnormality noted. Kidneys and ureters: Normal enhancement. No mass, hydronephrosis or visualized stone. Stomach and bowel: Scattered colonic diverticulosis noted. No diverticulitis or obstruction. PELVIS: Appendix: Probable appendectomy. Bladder: No filling defects to suggest mass or large stone. No inflammation. Reproductive: No abnormalities noted. ABDOMEN and PELVIS: Intraperitoneal space: No free air. No significant fluid collection. Bones/joints: No acute changes. Soft tissues: No significant abnormality noted. Vasculature: No abdominal aortic aneurysm. Lymph nodes: No pathologically enlarged lymph nodes. IMPRESSION: Cholelithiasis with acute cholecystitis. PG Care Time/CCT Total # of Minutes Spent Total Time Spent with Patient: Total time spent is greater than 50% in coordination of care (as documented) at patient's floor/unit and/or counseling patient: [place] [address] Office/OBS Consult Lvl 1 Patient Type New Medical Decision Making Straight Forward Diagnoses Acute cholecystitis K81.0
[2024-08-27] MEDS: PANTOprazole 40 MG/10 ML SYR IV ONE (20:22)
[2024-08-27] MEDS: PIPERACILLIN/TAZOBACTAM 4.5 GM/100 ML BAG IV ONE (20:48)
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
[2024-08-27 21:49] LABS: Appearance Urine Clear (Clear); Bilirubin Urine Negative (Negative); Blood Urine Negative (Negative); Color Urine Yellow; Glucose Urine UA Negative (Negative); Ketones Urine Negative (Negative); Leukocyte Esterase Urine Negative (Negative); Nitrite Urine Negative (Negative); Protein Urine Negative (Negative); Specific Gravity Urine > 1.045 (1.000-1.030); Urobilinogen Urine Negative (Negative); pH Urine 8.5 (4.5-7.5)
[2024-08-27] MEDS ORDERED: MoRPHine SULFATE 2 MG/ML CARP IV PRN (23:18)
[2024-08-27] MEDS: MoRPHine SULFATE 4 MG/ML 1 ML CARP\\VIAL IV PRN (23:33)
--- NOTE | 2024-08-27 23:39 | Ultrasound Report ---
Exam(s): US GALLBLADDER EXAM: US Abdomen Limited, Right Upper Quadrant CLINICAL HISTORY: Reason for exam: ruq pain. TECHNIQUE: Real-time ultrasound of the right upper quadrant with image documentation. COMPARISON: CT abdomen pelvis dated 08/27/24 FINDINGS: Liver: Unremarkable. No mass. No intrahepatic bile duct dilation. Gallbladder: Multiple gallbladder stones, mostly mobile. Mild gallbladder wall thickening 0.4 cm. Negative sonographic Feliciano's. No pericholecystic fluid. Common bile duct: Unremarkable as visualized. No stones. No dilation. Common bile duct measures 0.4 cm in diameter. Pancreas: Unremarkable as visualized. Right kidney: Unremarkable. No stones. No solid mass. No hydronephrosis. IMPRESSION: Cholelithiasis with mild gallbladder wall thickening. Findings are equivocal for acute cholecystitis. Electronically signed by: Brad Nichols M.D. 08/27/24 23:38 PM
[2024-08-27] MEDS: PANTOprazole 40 MG/10 ML SYR IV SCH (23:44)
[2024-08-28] MEDS: ONDANSETRON INJ 2 MG/ML 2 ML VIAL IV PRN ×2 (02:02→11:52)
[2024-08-28] MEDS: PIPERACILLIN/TAZOBACTAM 4.5 GM/100 ML BAG IV SCH (02:06)
[2024-08-28 04:29] LABS: Basophils # (auto) 0.02 K/uL (0.00-0.20); Basophils % (auto) 0.4 %; Eosinophils # (auto) 0.07 K/uL (0.00-0.50); Eosinophils % (auto) 1.4 %; Hematocrit (blood only) 40.3 % (37.0-47.0); Immature Granulocytes # (auto) 0.01 K/uL (0.01-0.20); Immature Granulocytes % (auto) 0.2 %; Lymphocytes # (auto) 1.52 K/uL (1.20-3.40); Lymphocytes % (auto) 30.7 %; Mean Corpuscular Hemoglobin 24.9 pg (25.0-34.0); Mean Corpuscular Hgb Conc 32.3 g/dL (32.0-36.0); Mean Corpuscular Volume 77.2 fL (80.0-100.0); Mean Platelet Volume 9.8 fL (9.4-12.4); Monocytes # (auto) 0.33 K/uL (0.11-0.59); Monocytes % (auto) 6.7 %; Neutrophils % (auto) 60.6 %; Platelet Count 285 K/uL (130-400); RDW Coefficient of Variation 13.5 % (11.5-14.5); RDW Standard Deviation 37.6 fL (36.4-46.3); Red Blood Count 5.22 M/uL (4.20-5.40); White Blood Count 4.95 K/ul (4.8-10.8)
[2024-08-28 04:49] LABS: Albumin Globulin Ratio 1.3 (0.9-2); Albumin Level 3.8 gm/dl (3.4-5.0); Bilirubin,Total 0.9 mg/dl (0.2-1.0); Calcium 8.4 mg/dl (8.6-10.3); Creatinine Clr Calc Pharmacy 147.2 ml/min; Globulin 2.9 gm/dl (2.5-4.0); Potassium 3.7 mmol/L (3.5-5.1); Total Protein 6.7 gm/dl (6.0-8.3)
[2024-08-28] MEDS ORDERED: ONDANSETRON INJ 2 MG/ML 2 ML VIAL ONE (07:24)
[2024-08-28] MEDS ORDERED: PROPOFOL IV EMULSION 10 MG/ML 20 ML VIAL IV ONE (07:24)
[2024-08-28] MEDS ORDERED: fentaNYL citrate PF 100 MCG/2 ML VIAL ONE ×3 (07:24→10:01)
[2024-08-28] MEDS ORDERED: LIDOCAINE 2% 2 ML VIAL/AMP(20MG/ML) INFIL ONE (07:24)
[2024-08-28] MEDS ORDERED: DEXAMETHASONE SOD INJ 4 MG/ML VIAL ONE (07:24)
[2024-08-28] MEDS ORDERED: ROCURONIUM BROMIDE 10 MG/ML 5 ML VIAL IV ONE (07:24)
[2024-08-28] MEDS ORDERED: GLYCOPYRROLATE 0.2 MG/ML VIAL ONE (07:24)
[2024-08-28] MEDS ORDERED: MIDAZOLAM HCL 1 MG/ML 2ML VIAL ONE (07:24)
[2024-08-28] MEDS ORDERED: SUGAMMADEX SODIUM 200 MG/2 ML VIAL IV ONE ×2 (07:26→12:58)
--- NOTE | 2024-08-28 07:58 | Hospitalist Progress Note ---
Date of Service August 28, 2024 Assessment & Plan (1) Acute cholecystitis: Plan: - POD #0 after robotic cholecystectomy - CBC w/o leukocytosis and overall unremarkable. Not anemic, however, MCV is 77 - CMP showed increase in AST of 59 --> 128 and ALT of 40 --> 102. Other LFTs wnl. - Currently on Zofran as needed for nausea, morphine and oxycodone for pain. - Will dc Zosyn per General Surgery reccs - Follow am labs to ensure LFTs downtrend (2) Hematemesis: Plan: - Patient with hematemesis during acute cholecystitis pain. States that she has started to blood clots. - States she does not drink much alcohol; 1-2 episodes vomiting with bright red blood on day before admission; no melena - More suspicious for esophageal irritation rather than bleeding ulcer - Continue Protonix 40 mg twice daily. - Consult GI. No indication for EGD at the time. - Hgb stable. Continue to monitor Hgb and Hct to ensure stability. (3) Hypothyroidism: Plan: - Continue home levothyroxine starting tomorrow (4) HTN (hypertension): Plan: - BP in appropriate range/stable - Continue to hold home Procardia 60 mg daily given stable BP, but will consider resuming them if they increase Plan VTE ppx: SCDs Diet: Regular Admission and Anticipated Discharge Date Admission Date: August 27, 2024 Supervising Physician Co-Signing Physician Notes I personally examined the patient and verified all heredia points of history and exam, discussed case, and agree with decision making with Dr Garcia feeling somewhat rough post op - pain, mostly upper abdomen vitals noted nad heent nc at mmm breathing unlabored no accessory muscles good effort skin no rashes no pallor or icterus neuro no focal deficits cholecystitis - now post cholecystectomy - medically stable but still quite symptomatic - med management/symptom control - home once pain better hematemesis - agree w GI - nothing appearing hemorrhagic, likely will improve w PPI, time otherwise as above hopefully home tomorrow as long as pain control better Subjective Patient evaluated at bedside after returning from surgery. She states she is feeling brain fog and pain that is more marked in epigastric region and RUQ. Also very concerned about hematemesis episode. The day before arrival to ED, she had 1-2 episodes of emesis and both had bright red blood. Neno nausea on days prior but no vomiting. No other systemic sxs. Would like to try and walk. Review of Systems Review of Systems: As per HPI. Physical Exam Physical Exam: Constitutional: well-appearing, no acute distress HEENT: NCAT, no conjunctival injection Resp: no increased work of breathing GI: deferred due to surgery today MSK: no gross deformities appreciated Skin: warm, dry, no rash appreciated Neuro: alert, oriented, drowsy Results & Data Results & Data Vital Signs (Past 12 Hours) Vital Signs Temp Pulse Pulse Resp BP Pulse Ox O2 Del Method 08/28/24 07:11 36.6 C 50 L 18 104/71 98 Room Air 08/27/24 23:19 36.4 C L 62 16 121/70 99 Room Air 08/27/24 23:18 36.4 C L 62 16 121/70 99 Room Air 08/27/24 22:33 63 20 100 Room Air 08/27/24 21:24 67 143/81 H 99 Resident Activity Tracking Resident Involvement: Resident Care Provided Care Provided: Adult Hospital Medicine (4) HTN (hypertension) Hypertension type: unspecified Qualified Code(s): I10 - Essential (primary) hypertension
--- NOTE | 2024-08-28 08:19 | Anesthesiology Consultation ---
Date of Service August 28, 2024 Assessment & Plan (1) Encounter for pre-operative examination: Chart Review Chart Review: Acceptable Risk for Surgery and Patient NOT seen in Pre Admission Testing Consults Requested none History Surgery Operation Date: 08/28/24 08:40 Proposed Procedures p Robotic Laparoscopic Cholecystectomy - Domi Torres DO Height/Weight Height: 5 ft 7 in Weight: 106.8 kg Allergies Allergy/AdvReac Type Severity Reaction Status Date / Time No Known Drug Allergies Allergy Unknown Verified 05/23/24 15:15 Medications Home Medications Medication Instructions Recorded Confirmed Last Taken acetone (urine) test (Ketone Urine #50 ea 07/20/23 11/09/23 Unknown Test strips) blood sugar diagnostic (OneTouch #150 ea 07/20/23 11/09/23 Unknown Verio test strips) blood-glucose meter (OneTouch #1 ea 07/20/23 11/09/23 Unknown Verio Reflect Meter) lancets 33 gauge (OneTouch Delica #150 ea 07/20/23 11/09/23 Unknown Plus Lancet) levothyroxine 50 mcg tablet 50 mcg PO DAILY #90 tabs 04/09/24 05/23/24 Unknown semaglutide 0.25 mg or 0.5 mg (2 0.25 mg (0.368 mL) subcut .weekly 05/23/24 05/23/24 Unknown mg/3 mL) subcutaneous pen injector #3 mL (Ozempic) Active Medications Generic Name Dose Route Start Last Admin Trade Name Freq PRN Reason Stop Dose Admin Pantoprazole Sodium 40 mg in 10 mls @ 5 mls/min 08/27/24 23:18 08/27/24 23:44 Protonix IV 09/26/24 23:17 5 mls/min BID NEDA Administration Piperacillin Sod/Tazobactam Sod 4.5 gm in 100 mls @ 25 mls/hr 08/28/24 02:00 08/28/24 06:17 Zosyn IV 08/30/24 01:59 Infused Q8H NEDA Infusion Protocol Morphine Sulfate 4 mg 08/27/24 23:18 08/28/24 05:54 Morphine Sulfate 4 Mg/Ml 1 Ml Carp\Vial IV 09/10/24 23:17 4 mg Q3H PRN Administration Pain (6,7,8,9,10) Ondansetron HCl 4 mg 08/27/24 23:18 08/28/24 02:02 Ondansetron Inj 2 Mg/Ml 2 Ml Vial IV 09/26/24 23:17 4 mg Q6H PRN Administration Nausea NPO Date Last Intake of Fluids: 08/27/24 Time Last Intake of Fluids: 22:00 Date Last Intake of Solids: 08/27/24 Time Last Intake of Solids: 22:00 Past Medical History Medical History Restless leg syndrome Peripheral edema distal lower extremities bilat-denies change or worsening since seeing OB/PCP GERD (gastroesophageal reflux disease) controlled, stable per pt Graves disease [facility] endocrine Hypothyroidism [facility] endocrine Migraine Past Family History Family History Father Family history of diabetes mellitus Cardiac disorder GA at age 54 y/o Mother Diabetes Cardiac disorder Hypertension Grandfather Diabetes Grandmother Diabetes Cardiac disorder Father Hypertension Uncle Thyroid disease Aunt No problems noted. Denies family history of Family hx of colon cancer Family history of complications due to general anesthesia Breast cancer Bleeding disorder Cancer Past Surgical History Surgical History H/O lymph node biopsy Left and right groin, pathology = most suggestive of a bacterial lymphadenitis Family history of reaction to anesthesia Father- respiratory problems with anesthesia Social History Smoking Status: Never smoker Do You Dip or Chew Tobacco: No Hx Alcohol Use: No Alcohol type: beer, wine and hard liquor alcohol intake frequency: holidays/special occasions only Hx Substance Use: No substance use type: does not use Physical Exam Vital Signs Last Vital Signs Temp 97.7 F 08/28/24 08:11 Pulse 69 08/28/24 08:11 Resp 18 08/28/24 08:11 BP 114/78 08/28/24 08:11 Pulse Ox 100 08/28/24 08:11 O2 Del Method Room Air 08/28/24 08:11 Testing Laboratory Results 08/28/24 03:31 08/28/24 03:31 Urine Color Yellow 08/27/24 21:17 Urine Appearance Clear (Clear) 08/27/24 21:17 Urine pH 8.5 (4.5-7.5) H 08/27/24 21:17 Ur Specific [place] > 1.045 (1.000-1.030) H 08/27/24 21:17 Urine Protein Negative (Negative) 08/27/24 21:17 Urine Glucose (UA) Negative (Negative) 08/27/24 21:17 Urine Ketones Negative (Negative) 08/27/24 21:17 Urine Nitrite Negative (Negative) 08/27/24 21:17 Ur Leukocyte Esterase Negative (Negative) 08/27/24 21:17
[2024-08-28] MEDS: INDOCYANINE GREEN 25 MG VIAL INJ ONE (08:25)
[2024-08-28] MEDS ORDERED: Nursing to Pharmacy Communication SCH (08:45)
--- NOTE | 2024-08-28 08:51 | History & Physical Bridge Note ---
Date of Service August 28, 2024 History & Physical Bridge Note I have examined the patient, reviewed the History & Physical and in the interval since the performance of the History & Physical I have noted the following changes of clinical significance: no changes noted. The patient presents for robotic cholecystectomy. The details of the procedure have been explained to her including the risks and benefits. She expressed understanding and consent was obtained.
[2024-08-28] MEDS ORDERED: SUCCINYLCHOLINE CHLORIDE 20 MG/ML 10 ML VIAL IV ONE (08:59)
[2024-08-28] MEDS: BUPIVACAINE 0.5 % 5 MG/1 ML MPF 30ML VIAL ONE (10:50)
--- NOTE | 2024-08-28 10:50 | Operative Report ---
[facility] Post Operative Report Pre & Post Diagnosis Operation Date: 08/28/24 08:40 Pre-Op Diagnosis: Acute cholecystitis Post-Op Diagnosis: Acute cholecystitis I identified the patient and participated in the time-out.: Yes Procedure Operation Date: 08/28/24 08:40 Actual Procedures p Robotic Laparoscopic Cholecystectomy(Not Applicable) - Domi Connelly DO Surgeon Domi Torres DO Physician Underwriter CARLOS Arriaga Estimated Blood Loss 3 Findings See Below Acute cholecystitis Specimens Gallbladder containing stones Anesthesia Type General Complications None Indications Presented to the ED with cholelithiasis and acute cholecystitis Description of Procedure The patient was brought back to the operating room placed on the operating room table in supine position. She was connected to cardiac and oxygen monitoring, supplemental O2 was provided and SCDs were applied to bilateral lower extremities. The patient was administered general anesthesia and a secure airway was established. The abdomen was prepped and draped in typical sterile fashion and a timeout was conducted. Local anesthetic was injected into the skin and subcutaneous tissues at all sites prior to making incisions. Incisions were all made with a 15 blade. Intra-abdominal access was gained using a Veress needle at the umbilicus. This was confirmed with a saline drop test. CO2 insufflation was initiated and pneumoperitoneum was established to a goal pressure 15 mmHg. A 5 mm laparoscope inside of an 8 mm trocar was inserted under direct visualization using an Optiview port. 2 additional 8 mm trocars were inserted at the right and left upper quadrants. A 5 mm broker assistant port was inserted at the far right upper quadrant. The remaining trocars were also inserted under direct visualization. The gallbladder was identified at the right upper quadrant. The OR table was positioned in reverse Trendelenburg and left side down. The robot was deployed, docked, targeted and instruments were loaded. At the console, the broker assistant grasped the fundus of the gallbladder to retract superiorly. The infundibulum of the gallbladder was retracted inferior laterally. The cystic triangle was dissected to expose the critical view of safety. Once this view was properly exposed, the cystic duct was ligated with 2 Hem-o-laly clips proximally 1 distally, the cystic artery was ligated in a similar fashion. Each structure was transected using diathermy with the hook. The gallbladder was cauterized away from the liver bed. The gallbladder was extremely edematous causing excessive amounts of serous fluid drainage. Small amounts of bleeding throughout the dissection were controlled along the way with cautery. The liver bed and perihepatic space were suctioned clear of a small amount of blood and serous fluid. The liver bed was checked multiple times for hemostasis. There was no bleeding at the end of the case. The gallbladder was placed in an Endo Catch bag and removed from the abdomen. All instruments were removed including the endoscope. CO2 insufflation was discontinued and excess pneumoperitoneum was evacuated. The trocars were removed. The OR table was returned to neutral position. The broker assistant approximated the incision using 4-0 Monocryl suture. The abdomen was wiped clean with a saline soaked lap pad and dried. Each incision was sealed with Dermabond. The patient tolerated the procedure well. She was awakened from anesthesia, the secure airway was removed and she was transferred to recovery in stable condition. I attest to the content of the Intraoperative Record and any orders documented therein. Any exceptions are noted below.
[2024-08-28] MEDS ORDERED: ATROPINE SULFATE 0.1 MG/ML 10ML SYR IV PRN (11:17)
[2024-08-28] MEDS ORDERED: ePHEDrine sulfate 50 MG/ML AMP IV PRN (11:17)
[2024-08-28] MEDS: fentaNYL citrate PF 100 MCG/2 ML VIAL IV PRN (11:30)
--- NOTE | 2024-08-28 12:07 | Anesthesiology Progress Note ---
Date of Service August 28, 2024 Anesthesia Post Procedure Vital Signs Vital Signs: Temp Pulse Pulse Resp BP BP Pulse Ox 08/28/24 11:50 64 17 117/71 95 08/28/24 11:40 71 17 113/70 95 08/28/24 11:30 73 16 141/70 H 98 08/28/24 11:20 82 18 133/77 100 08/28/24 11:10 89 14 112/77 100 08/28/24 11:04 96.8 F L 87 12 119/71 96 08/28/24 08:11 97.7 F 69 18 114/78 100 08/28/24 07:11 97.9 F 50 L 18 104/71 98 08/27/24 23:19 97.5 F L 62 16 121/70 99 08/27/24 23:18 97.5 F L 62 16 121/70 99 08/27/24 22:33 63 20 100 08/27/24 21:24 67 143/81 H 99 08/27/24 19:18 72 20 134/88 98 08/27/24 16:19 98.1 F 74 18 142/100 H 100 O2 Del Method O2 Flow Rate 08/28/24 11:50 Nasal Cannula 2 08/28/24 11:40 Room Air 08/28/24 11:30 Oxymask 4 08/28/24 11:20 Oxymask 4 08/28/24 11:10 Oxymask 6 08/28/24 11:04 Oxymask 6 08/28/24 08:11 Room Air 08/28/24 07:11 Room Air 08/27/24 23:19 Room Air 08/27/24 23:18 Room Air 08/27/24 22:33 Room Air 08/27/24 21:24 08/27/24 19:18 Room Air 08/27/24 16:19 Room Air Pain Intensity Abdomen: Pain Intensity: 8 Transfer of Care Handoff Completed per policy Notes Mental Status: alert / awake / arousable and participated in evaluation Patient Amnestic to Procedure: Yes Nausea / Vomiting: adequately controlled Pain: adequately controlled and improving with treatment Airway Patency, RR, SpO2: stable & adequate BP & HR: stable & adequate Hydration State: stable & adequate Anesthetic Complications: no major complications apparent and Pt Satisfied with anesthetic care
[2024-08-28] MEDS ORDERED: oxyCODONE HCL IR 5 MG TAB (IMMEDIATE RELEASE) PO PRN (12:29)
[2024-08-28] MEDS: SODIUM CHLORIDE 0.9% 500 ML IV SCH (12:42)
[2024-08-28] MEDS: LR 15ML/HR IV SCH (12:51)
--- NOTE | 2024-08-28 13:00 | Gastrointestinal Consultation ---
Date of Consultation August 28, 2024 Assessment & Plan (1) Hematemesis: (2) Cholecystitis: (3) Constipation: Plan Patient is a 33 year old female who presented with nausea, vomiting, some hematemesis, and abdominal pain. she was found to have cholecystitis and is s/p cholecystectomy. Suspect that blood was likely related to irritation from the vomiting. hgb/hct are stable. - continue to follow hgb/hct. - continue with protonix 40mg bid. - would hold off on an EGD at this time and continue to monitor. - will start miralax 17gm daily as needed for constipation. - trend LFTs. likely up from recent cholecystitis. Supervising Physician Co-Signing Physician Notes I personally saw and examined the patient. I have reviewed the chart and agree with the documentation provided by the JEWEL STRINGER including discussion about the assessment, treatment and plan. Briefly, 33 year old female with past medical history of hypothyroidism, hypertension who presented to the ED on 08/27 with severe abdominal pain under her rib cage and upper stomach, as well as nausea and vomiting. she admits to seeing 3 blood clots in the emesis. Upon work up in the ED she was found to have cholecystitis and underwent a cholecystectomy this morning. She tells me that since being admitted she has had no further vomiting. she feels nauseated post op and some pain at her incision site. she tells me she had ulcers on her last EGD with [facility] in 2019, but report actually lists esophagitis. Her LFTs have normalized with a total bili of 0.7 and her CBD was 4 mm on the ultrasound. Her hemoglobin has been stable. She has no further episodes of nausea or vomiting. She is having some postoperative pain. I suspect this is either a Clarisa-Johns tear or more likely esophagitis leading to some blood coming up. I would treat her conservatively with PPI twice daily. If she has any further bleeding or drop in hemoglobin GI can consider endoscopy inpatient. However, suspect self-limited and supportive care now. History of Present Illness Reason for Consultation: hematemesis Requesting Physician: Luis Ruffin DO Attending Physician: Lopez Brush DO History of Present Illness Patient is a 33 year old female with past medical history of hypothyroidism, hypertension who presented to the ED on 08/27 with severe abdominal pain under her rib cage and upper stomach, as well as nausea and vomiting. she admits to seeing 3 blood clots in the emesis. Upon work up in the ED she was found to have cholecystitis and underwent a cholecystectomy this morning. She tells me that since being admitted she has had no further vomiting. she feels nauseated post op and some pain at her incision site. she tells me she had ulcers on her last EGD with [facility] in 2019, but report actually lists esophagitis. she does report some reflux symptoms at home, but has not been taking anything for this. she had used famotidine in the past with good results. she has had issues with constipation in the past. no black stools or blood in stools. she denies nsaids. rest of GI ros are unremarkable. 08/27/24 hgb 15.2, AST 59, ALT 40. rest of lfts were unremarkable. 08/28/24 hgb 13. AST 128, ALT 102. rest of lfts were unremarkable. US 08/27/14 Cholelithiasis with mild gallbladder wall thickening. Findings are equivocal for acute cholecystitis. Allergies Allergy/AdvReac Type Severity Reaction Status Date / Time No Known Drug Allergies Allergy Unknown Verified 08/28/24 08:54 Home Medications Medication Instructions Recorded Confirmed Type acetone (urine) test (Ketone Urine #50 ea 07/20/23 11/09/23 Rx Test strips) blood sugar diagnostic (OneTouch #150 ea 07/20/23 11/09/23 Rx Verio test strips) blood-glucose meter (OneTouch #1 ea 07/20/23 11/09/23 Rx Verio Reflect Meter) lancets 33 gauge (OneTouch Delica #150 ea 07/20/23 11/09/23 Rx Plus Lancet) levothyroxine 50 mcg tablet 50 mcg PO DAILY #90 tabs 04/09/24 05/23/24 Rx semaglutide 0.25 mg or 0.5 mg (2 0.25 mg (0.368 mL) subcut .weekly 05/23/24 05/23/24 Rx mg/3 mL) subcutaneous pen injector #3 mL (Ozempic) Patient History Medical History Restless leg syndrome Peripheral edema distal lower extremities bilat-denies change or worsening since seeing OB/PCP GERD (gastroesophageal reflux disease) controlled, stable per pt Graves disease [facility] Hypothyroidism [facility] Migraine Surgical History H/O lymph node biopsy Left and right groin, pathology = most suggestive of a bacterial lymphadenitis Family history of reaction to anesthesia Father- respiratory problems with anesthesia Family History Father Family history of diabetes mellitus Cardiac disorder [place] at age 54 y/o Mother Diabetes Cardiac disorder Hypertension Grandfather Diabetes Grandmother Diabetes Cardiac disorder Father Hypertension Uncle Thyroid disease Aunt No problems noted. Denies family history of Family hx of colon cancer Family history of complications due to general anesthesia Breast cancer Bleeding disorder Cancer Social History Smoking Status: Never smoker Second Hand Exposure: No; Do You Dip or Chew Tobacco: No; Tobacco Cessation Education Requested by Patient: No Hx Alcohol Use: No Hx Substance Use: No Preferred Language: Citizen Of The [place] Communication Ability: Effective Visual Impairment: No Limitations Physician Assistant Surgery Required: No Beliefs That Will Affect Care: None marital status: Current Living Situation: Significant Other Current Living Situation Comment: sister and current occupational status: unemployed Other Information That Helps Us Care for You: No Feels Safe at Home: Yes Safety Concerns: Feels Safe At This Time Diet: diabetic Assistive Devices: None Review of Systems Review of Systems: All systems reviewed & are unremarkable except as noted in HPI & below Physical Exam Constitutional: WD/WN, vitals as above Respiratory: normal effort. Gastrointestinal (Abdomen): abdominal exam deferred given she just came from surgery. Psychiatric: Orientation: alert and oriented x 3 Results & Data Vital Signs (Past 12 Hours) Vital Signs Temp Pulse Resp BP Pulse Ox O2 Del Method O2 Flow Rate 08/28/24 12:25 97.9 F 18 125/83 93 Room Air 08/28/24 12:10 70 14 123/82 98 Nasal Cannula 2 08/28/24 12:00 98.1 F 63 12 115/72 98 Nasal Cannula 2 08/28/24 11:50 64 17 117/71 95 Nasal Cannula 2 08/28/24 11:40 71 17 113/70 95 Room Air 08/28/24 11:30 73 16 141/70 H 98 Oxymask 4 08/28/24 11:20 82 18 133/77 100 Oxymask 4 08/28/24 11:10 89 14 112/77 100 Oxymask 6 08/28/24 11:04 96.8 F L 87 12 119/71 96 Oxymask 6 08/28/24 08:11 97.7 F 69 18 114/78 100 Room Air 08/28/24 07:11 97.9 F 50 L 18 104/71 98 Room Air Coding Level of Care Code 52944 IN/OBS CONSULT LVL 4,60M Diagnoses Hematemesis K92.0 Nausea presence: with nausea Cholecystitis K81.9 Constipation K59.00 (1) Hematemesis Nausea presence: with nausea Qualified Code(s): K92.0 - Hematemesis
[2024-08-28] MEDS: oxyCODONE HCL IR 5 MG TAB (IMMEDIATE RELEASE) PO PRN (13:09)
[2024-08-28] MEDS ORDERED: POLYETHYLENE (MIRALAX) 17 GM PACK PO PRN (13:29)
--- NOTE | 2024-08-28 14:55 | Billing Data ---
Date of Service August 28, 2024 Coding Level of Care Code 26053 SUB INP/OBS CARE
[2024-08-28] MEDS: ACETAMINOPHEN 325 MG TAB PO PRN (20:02)
[2024-08-28] MEDS: diphenhydrAMINE 50 MG/ML VIAL IV STA (22:11)
[2024-08-29] MEDS: CALCIUM CARBONATE 500 MG CHEWABLE TAB PO PRN (00:27)
[2024-08-29 07:56] LABS: Basophils # (auto) 0.01 K/uL (0.00-0.20); Basophils % (auto) 0.1 %; Eosinophils # (auto) 0.01 K/uL (0.00-0.50); Eosinophils % (auto) 0.1 %; Hematocrit (blood only) 38.6 % (37.0-47.0); Hemoglobin 12.3 g/dl (12.0-16.0); Immature Granulocytes # (auto) 0.02 K/uL (0.01-0.20); Immature Granulocytes % (auto) 0.3 %; Lymphocytes % (auto) 16.9 %; Mean Corpuscular Hemoglobin 24.9 pg (25.0-34.0); Mean Corpuscular Hgb Conc 31.9 g/dL (32.0-36.0); Mean Corpuscular Volume 78.3 fL (80.0-100.0); Mean Platelet Volume 9.8 fL (9.4-12.4); Monocytes # (auto) 0.41 K/uL (0.11-0.59); Monocytes % (auto) 5.8 %; Neutrophils # (auto) 5.45 K/uL (1.40-6.50); Neutrophils % (auto) 76.8 %; Platelet Count 279 K/uL (130-400); RDW Coefficient of Variation 13.7 % (11.5-14.5); Red Blood Count 4.93 M/uL (4.20-5.40)
[2024-08-29 08:24] LABS: Albumin Globulin Ratio 1.2 (0.9-2); Albumin Level 3.6 gm/dl (3.4-5.0); BUN Creatinine Ratio 11.1 (10-20); Bilirubin,Total 0.7 mg/dl (0.2-1.0); Creatinine Clr Calc Pharmacy 161.3 ml/min; Globulin 3.1 gm/dl (2.5-4.0); Potassium 4.3 mmol/L (3.5-5.1); Total Protein 6.7 gm/dl (6.0-8.3)
[2024-08-29] MEDS ORDERED: FAMOTIDINE 20 MG TAB PO PRN (09:14)
[2024-08-29] MEDS ORDERED: SIMETHICONE 40 MG/0.6 ML 30ML PO PRN (09:16)
[2024-08-29] MEDS: diphenhydrAMINE Capsule 25 MG CAP PO PRN (09:51)
--- NOTE | 2024-08-29 10:13 | Hospitalist Progress Note ---
Date of Service August 29, 2024 Assessment & Plan (1) Acute cholecystitis: Plan: - POD #1 after robotic cholecystectomy - CBC w/o leukocytosis and overall unremarkable. Hgb stable - CMP showed increase in AST of 128 --> 240 and ALT of 102 --> 287. Other LFTs w nl. Increase in liver enzymes likely due to recent cholecystitis and/or recent procedure - Still in pain; oxycodone causes GI upset for her; will add Percocet; Morphine dc by surgery team - Encouraged ambulation as able; not passed gas or had bm; added simethicone for possible gas pains - Suspect acid reflux pain could also have a role in current pain, therefore, will continue Protonix BID and add Pepcid 20 mg bid - Follow am labs to ensure LFTs downtrend - If pain well controlled and patient remains clinically stable consider discharge tomorrow. Surgery f/u in 2 weeks. (2) Hematemesis: Plan: - Patient with hematemesis during acute cholecystitis pain. Vomit had bright red blood with some clots. - States she does not drink much alcohol; 1-2 episodes vomiting with bright red blood on day before admission; thinks she had darker/black stools in the beginning of the week - More suspicious for esophageal irritation/Clarisa Radha tear rather than bleeding ulcer; Hgb stable, low suspicion of hematemesis being related to ulcer - Continue Protonix 40 mg twice daily and added Pepcid 20 mg bid - Consult GI. No indication for EGD at the time. - Continue to monitor (3) Hypothyroidism: Plan: - Continue home levothyroxine (4) HTN (hypertension): Plan: - BP in appropriate range/stable - Continue to hold home Procardia 60 mg daily given stable BP, but will consider resuming them if they increase Plan VTE ppx: SCDs Diet: Regular Admission and Anticipated Discharge Date Admission Date: August 27, 2024 Supervising Physician Co-Signing Physician Notes I personally examined the patient and verified all heredia points of history and exam, discussed case, and agree with decision making with Dr Garcia still having a decent amount of abdominal pain. Vitals noted, in general she is awake and alert pleasant no distress. HEENT normocephalic atraumatic mucous membranes moist. Breathing unlabored no accessory muscle use good effort. Skin without rashes pallor or icterus. Neuro without focal deficits. Cholecystitisstatus postcholecystectomy. Postop pain likely is postop incisional pain as well as ongoing pain from some gastritis that she appears to have had from nausea and vomitingescalate her GI mucosal managementnow on twice daily Protonix, twice daily Pepcid, 4 times daily Maaloxgive Maalox and viscous lidocaine x 1 now as well. LFTs trending up, but really just AST and ALT, alk phos and bili are normalagree with GI this is probably just residual inflammation not retained stone. That said if symptoms do not improve and LFTs continue to trend up, then may need to pursue retained stone. Otherwise as above Subjective Evaluated at bedside and found to be alone, AAOx4, and in AD. No fevers overnight and no overnight events. Patient states she feels much more awake today. Has some pain in epigastric region and also describing intermittent chest tightness that is central w/o radiation or associated sxs. Has tried to ambulate to bathroom and back and no lightheadedness or other sxs noted. No other concerns. Review of Systems Review of Systems: As per HPI. Physical Exam Physical Exam: Constitutional: well-appearing, no acute distress HEENT: NCAT, no conjunctival injection Resp: no increased work of breathing GI: surgical wounds w/o surrounding erythema, non-bleeding, no exudates MSK: no gross deformities appreciated Skin: warm, dry, no rash appreciated Neuro: AAOx4, afebrile, NAD Results & Data Results & Data Vital Signs (Past 12 Hours) Vital Signs Temp Pulse Resp BP Pulse Ox O2 Del Method 08/29/24 07:11 36.7 C 66 16 98/59 L 94 Room Air 08/29/24 04:20 36.8 C 63 16 105/67 94 Room Air 08/28/24 23:31 36.9 C 73 16 107/63 95 Room Air Resident Activity Tracking Resident Involvement: Resident Care Provided Care Provided: Adult Hospital Medicine (4) HTN (hypertension) Hypertension type: unspecified Qualified Code(s): I10 - Essential (primary) hypertension
--- NOTE | 2024-08-29 10:20 | Gastroenterology Progress Note ---
Date of Service August 29, 2024 Assessment & Plan (1) Hematemesis: (2) Acute upper abdominal pain: Plan no further episodes of emesis, hgb still wnl. she does have some nausea, heartburn, and epigastric discomfort. - continue with protonix 40mg bid. Famotidine 20mg bid is being added today per orders. can see if this helps improve symptoms. - continue with miralax 17gm daily as needed for constipation. - trend LFTs. likely these were up from recent cholecystitis. Admission and Anticipated Discharge Date Admission Date: August 27, 2024 Supervising Physician Co-Signing Physician Notes I personally saw and examined the patient. I have reviewed the chart and agree with the documentation provided by the COLLISION REPAIR TECHNICIAN including discussion about the assessment, treatment and plan. Briefly, still continues with significant pain and now heartburn with some nausea. Having said that she has improved from yesterday. Her LFTs have gone up but her bilirubin remains normal and her CBD on all imaging studies has been 4 to 5 mm. Risk for retained stone in CBD or post op bile leak is low. At this point, suspect inflammation and some duct spasm leading to the rise in LFTs and will trend for another day. If her LFTs continue to rise, then consider an MRCP. No further bleeding and from a hematemesis standpoint she is stable. Subjective Patient is s/p cholecystectomy 08/28. she does see some improvement in symptoms, but still feels some nausea, heartburn, and RUQ/mid epigastric abdominal discomfort. no vomiting. no bowel movements since surgery per patient. 08/29/24 AST 240, ALT 287, rest of lfts wnl. hgb 12.3. Review of Systems Review of Systems: All systems reviewed & are unremarkable except as noted in HPI & below Physical Exam Constitutional: WD/WN, vitals as above Respiratory: normal respiratory effort, lungs clear to auscultation Cardiovascular: Rate/Rhythm: regular rate and regular rhythm Gastrointestinal (Abdomen): mid epigastric tenderness, no guarding, soft, normal bowel sounds. Psychiatric: Orientation: alert and oriented x 3 Results & Data Results & Data Vital Signs (Past 12 Hours) Vital Signs Temp Pulse Resp BP Pulse Ox O2 Del Method 08/29/24 07:11 98.1 F 66 16 98/59 L 94 Room Air 08/29/24 04:20 98.2 F 63 16 105/67 94 Room Air 08/28/24 23:31 98.4 F 73 16 107/63 95 Room Air Coding Level of Care Code 09936 SUB INP/OBS CARE 10/05MIN Diagnoses Hematemesis K92.0 Nausea presence: with nausea Acute upper abdominal pain R10.10 (1) Hematemesis Nausea presence: with nausea Qualified Code(s): K92.0 - Hematemesis
[2024-08-29] MEDS: diphenhydrAMINE 50 MG/ML VIAL IV ONE (10:29)
[2024-08-29] MEDS: ACETAMINOPHEN 500 MG TAB PO SCH (10:29)
--- NOTE | 2024-08-29 11:03 | Surgery Progress Note ---
Date of Service August 29, 2024 Assessment & Plan (1) Cholecystitis: Plan: Pt with recent gestational diabetes, pre-eclampsia, difficult gave 8 mos ago and h/o Grave's disease p/w 08/27/24 with epigastric pain, nausea then vomiting and subsequently vomited a blood clot. Found with mild acute cholecystitis on CT and US. Imaging without evidence for CBD stones. Mild elevation of LFTs prior to surgery AST 128, ALT 102. POD 1 robotic cholecystectomy with edema of GB wall intra-operatively. Pain better controlled, oxycodone ordered, Morphine discontinued. No further bloody emesis since admission and stable H/H....Lovenox added for DVT ppx and ambulate aggressively, SCDs while in bed. GI on board, rec continue PPI for now, no EGD at this time. Agree with this plan. F/U with me in the office for post op check in 2 weeks. Avoid heavy lifting of more than 20-25 pounds if possible. She has a 26lb baby at home and patient obese, provide abdominal binder prior to discharge to use while up and about at home. Low fat diet. Pt states she was told she should stay today until her blood work stabilizes. I told her this is fine, discharge per medicine. Dr. Sullivan will see patient in the am if she is still in house. Admission and Anticipated Discharge Date Admission Date: August 27, 2024 Subjective I have seen and examined this patient this am. She states her pain is now better controlled. She has some itching at her IV sites and previously had itching around her eyes. She states she has had some allergy to adhesive in the past. She denies nausea and is tolerating her diet. Physical Exam Constitutional: not ill appearing, not disheveled, not in distress and not diaphoretic Gastrointestinal (Abdomen): laparoscopic incisions are intact, Dermabond remains at incision sites. No bruising Results & Data Vital Signs (Past 12 Hours) Vital Signs Temp Pulse Resp BP Pulse Ox O2 Del Method 08/29/24 07:11 36.7 C 66 16 98/59 L 94 Room Air 08/29/24 04:20 36.8 C 63 16 105/67 94 Room Air 08/28/24 23:31 36.9 C 73 16 107/63 95 Room Air Laboratory Results AST 240 ALT 287 PG Care Time/CCT Total # of Minutes Spent Total Time Spent with Patient: Total time spent is greater than 50% in coordination of care (as documented) at patient's floor/unit and/or counseling patient: Coding Level of Care Code 58355 Post Operative Follow-Up Diagnoses Cholecystitis K81.9
[2024-08-29] MEDS ORDERED: oxyCODONE/ACETAMINOPHEN 5mg/325mg TAB PO PRN (11:57)
[2024-08-29] MEDS: oxyCODONE/ACETAMINOPHEN 10-325 TAB PO PRN (15:33)
--- NOTE | 2024-08-29 17:28 | Billing Data ---
Date of Service August 29, 2024 Coding Level of Care Code 70591 SUB INP/OBS CARE
[2024-08-29] MEDS: LIDOCAINE VISCOUS 2% 15 ML UDC PO ONE (17:48)
[2024-08-29] MEDS: ALUMINUM/MAGNESIUM SUSP 30 ML UDC PO STA (17:49)
[2024-08-29] MEDS: PANTOprazole 40 MG TAB PO SCH (21:02)
[2024-08-29] MEDS: FAMOTIDINE 20 MG TAB PO SCH (21:02)
[2024-08-29] MEDS: diphenhydrAMINE 50 MG/ML VIAL IV STA (21:08)
[2024-08-30] MEDS: MoRPHine SULFATE 2 MG/ML CARP IV PRN (05:31)
[2024-08-30] MEDS: LEVOTHYROXINE SODIUM 50 MCG TABLET PO SCH (05:31)
[2024-08-30] MEDS: ALUMINUM/MAGNESIUM SUSP 30 ML UDC PO SCH (07:13)
[2024-08-30] MEDS: ENOXAPARIN INJ 40 MG/0.4 ML SYR SQ SCH (07:15)
[2024-08-30 07:45] LABS: Basophils # (auto) 0.03 K/uL (0.00-0.20); Basophils % (auto) 0.5 %; Eosinophils # (auto) 0.08 K/uL (0.00-0.50); Eosinophils % (auto) 1.3 %; Hematocrit (blood only) 39.4 % (37.0-47.0); Hemoglobin 12.5 g/dl (12.0-16.0); Immature Granulocytes # (auto) 0.01 K/uL (0.01-0.20); Immature Granulocytes % (auto) 0.2 %; Lymphocytes # (auto) 2.47 K/uL (1.20-3.40); Lymphocytes % (auto) 39.6 %; Mean Corpuscular Hemoglobin 24.9 pg (25.0-34.0); Mean Corpuscular Hgb Conc 31.7 g/dL (32.0-36.0); Mean Corpuscular Volume 78.5 fL (80.0-100.0); Mean Platelet Volume 9.6 fL (9.4-12.4); Monocytes # (auto) 0.36 K/uL (0.11-0.59); Monocytes % (auto) 5.8 %; Neutrophils # (auto) 3.29 K/uL (1.40-6.50); Neutrophils % (auto) 52.6 %; Platelet Count 252 K/uL (130-400); RDW Coefficient of Variation 13.7 % (11.5-14.5); RDW Standard Deviation 38.9 fL (36.4-46.3); Red Blood Count 5.02 M/uL (4.20-5.40); White Blood Count 6.24 K/ul (4.8-10.8)
[2024-08-30 07:50] VITALS: BP 105/67; PULSE 58; RESP 18; TEMP 97.9; O2SAT 96
[2024-08-30 08:05] LABS: Albumin Globulin Ratio 1.1 (0.9-2); Albumin Level 3.5 gm/dl (3.4-5.0); Bilirubin,Total 0.4 mg/dl (0.2-1.0); Calcium 8.4 mg/dl (8.6-10.3); Creatinine Clr Calc Pharmacy 128.6 ml/min; Globulin 3.2 gm/dl (2.5-4.0); Total Protein 6.7 gm/dl (6.0-8.3)
--- NOTE | 2024-08-30 09:00 | Surgery Progress Note ---
Date of Service August 30, 2024 Assessment & Plan (1) Hx laparoscopic cholecystectomy: Plan: doing well from our standpoint LFT's improving H/H stable ok for d/c from surgery standpoint. instructions given. Admission and Anticipated Discharge Date Admission Date: August 27, 2024 Subjective pt seen. doing ok. had some emesis yesterday Physical Exam Physical Exam: alert. nad abd: soft. expected tenderness Results & Data Vital Signs (Past 12 Hours) Vital Signs Temp Pulse Resp BP Pulse Ox O2 Del Method 08/30/24 07:49 36.6 C 58 L 18 105/67 96 Room Air 08/29/24 21:02 36.7 C 66 16 136/87 97 Room Air PG Care Time/CCT Total # of Minutes Spent Total Time Spent with Patient: Total time spent is greater than 50% in coordination of care (as documented) at patient's floor/unit and/or counseling patient: Coding Level of Care Code 65172 Post Operative Follow-Up Diagnoses Hx laparoscopic cholecystectomy Z90.49
[2024-08-30] MEDS: diphenhydrAMINE Capsule 25 MG CAP PO ONE (10:40)
[2024-08-30] MEDS ORDERED: diphenhydrAMINE Capsule 25 MG CAP PO PRN (10:43)
--- NOTE | 2024-08-30 11:00 | Gastroenterology Progress Note ---
Date of Service August 30, 2024 Assessment & Plan (1) Hx laparoscopic cholecystectomy: Plan: 33 year old female s/p cholecystectomy w/ downtrending LFTs, CT and ABD US w/o biliary dilation or CBD stones who reports an episode of constipation followed by emesis last evening w/ two small brown appearing blood clots. She has remained hemodynamically stable w/ stable HGB at 12.5 w/o BUN elevation. As she ate breakfast this AM and there are no signs for an acute active GI bleed, no plan for endoscopic evaluation. Continue supportive measures. Trend HGB. PO PPI BID. Continue Pepcid. Miralax once daily. Trend LFTs. If fail to normalize, will need MRCP or EUS. As these are improving, likely related to cholecystitis. Recall GI as needed. I spent a total of 40 minutes on the date of service in review of patient's record, and previously obtained information in person and appropriate medical visit, discussion and education of plan, with patient and/or caregiver, placing orders for tests/referral/procedures as medically necessary and documentation of pertinent clinical information in patient's medical records for their visit today. Admission and Anticipated Discharge Date Admission Date: August 27, 2024 Supervising Physician Co-Signing Physician Notes I personally saw and examined the patient. I have reviewed the chart and agree with the documentation provided by the DISPATCHER AUTOMOBILE RENTAL including discussion about the assessment, treatment and plan. Some nausea but overall doing much better pain is improved. Hemoglobin is stable despite her small amount of coffee-ground's. She can get an outpatient endoscopy. Her LFTs are also coming down. From a GI perspective, she is doing better. We will sign off please call us with any questions. Subjective Pt was seen and evaluated, chart reviewed. Suggests she had a bout of constipation followed by emesis yesterday.She believes there was small amount of dark brown speck of clotted material and questions if this was a small blood clot. Denies hematemesis. No black or bloody stools. HGB 12.5 BUN 15 Tbili 0.4 AST 240 --> 145 ALT 287 --> 236 ALKP 73 --> 83 Review of Systems Review of Systems: All other findings negative except as noted in HPI. Physical Exam Constitutional: WD/WN, vitals as above Respiratory: normal respiratory effort, lungs clear to auscultation Gastrointestinal (Abdomen): normal bowel sounds, soft, nontender, no hepatosplenomegaly Skin: no rashes, warm and dry Results & Data Results & Data Vital Signs (Past 12 Hours) Vital Signs Temp Pulse Resp BP Pulse Ox O2 Del Method 08/30/24 07:49 36.6 C 58 L 18 105/67 96 Room Air Laboratory Results 08/30/24 Range/Units 06:58 WBC 6.24 (4.8-10.8) K/ul RBC 5.02 (4.20-5.40) M/uL Hgb 12.5 (12.0-16.0) g/dl Hct 39.4 (37.0-47.0) % MCV 78.5 L (80.0-100.0) fL MCH 24.9 L (25.0-34.0) pg MCHC 31.7 L (32.0-36.0) g/dL RDW Std Deviation 38.9 (36.4-46.3) fL RDW Coeff of Vu 13.7 (11.5-14.5) % Plt Count 252 (130-400) K/uL MPV 9.6 (9.4-12.4) fL Immature Gran % (Auto) 0.2 % Neut % (Auto) 52.6 % Lymph % (Auto) 39.6 % [place] % (Auto) 5.8 % Eos % (Auto) 1.3 % Baso % (Auto) 0.5 % Neut # (Auto) 3.29 (1.40-6.50) K/uL Lymph # (Auto) 2.47 (1.20-3.40) K/uL [place] # (Auto) 0.36 (0.11-0.59) K/uL Eos # (Auto) 0.08 (0.00-0.50) K/uL Baso # (Auto) 0.03 (0.00-0.20) K/uL Immature Gran # (Auto) 0.01 (0.01-0.20) K/uL Sodium 139 (136-145) mmol/L Potassium 4.0 (3.5-5.1) mmol/L Chloride 104 (98-107) mmol/L Carbon Dioxide 29 (21-32) mmol/L Anion Gap 6 (3-11) BUN 15 (6-23) mg/dl Creatinine 0.79 (0.6-1.2) mg/dl Est Cr Clr Drug Dosing 128.6 ml/min eGFR 101.86 BUN/Creatinine Ratio 19.0 (10-20) Glucose 85 (70-99(Fasting)) mg/dl Calcium 8.4 L (8.6-10.3) mg/dl Total Bilirubin 0.4 (0.2-1.0) mg/dl AST 145 H (13-39) U/L ALT 236 H (7-52) U/L Alkaline Phosphatase 83 (34-104) U/L Total Protein 6.7 (6.0-8.3) gm/dl Albumin 3.5 (3.4-5.0) gm/dl Globulin 3.2 (2.5-4.0) gm/dl Albumin/Globulin Ratio 1.1 (0.9-2) PG Care Time/CCT Total # of Minutes Spent Total Time Spent with Patient: Total time spent is greater than 50% in coordination of care (as documented) at patient's floor/unit and/or counseling patient: Coding Level of Care Code 16725 SUB INP/OBS CARE 2/35MIN Diagnoses Hx laparoscopic cholecystectomy Z90.49
--- NOTE | 2024-08-30 12:11 | Discharge Summary ---
Date of Service August 30, 2024 Admission HPI Per Admitting Provider Patient is a 33-year-old female with past medical history of hypothyroidism, hypertension who presents to the hospital with severe abdominal pain under her rib cage and upper stomach. The pain has been been worse with sitting or lying down. She has also had some episodes of vomiting with blood clots. Patient denies frequent alcohol use or smoking. Pain started this morning and has been getting worse throughout the day. Denies any recent trauma. She is 8 months . She denies any fevers, chills, chest pain, shortness of breath. Admission Exam Per Admitting Provider Constitutional: well-appearing, no acute distress HEENT: NCAT, no conjunctival injection CV: regular rhythm, no murmur appreciated, extremities well-perfused, no LE edema Resp: CTABL, no wheezes/rales/rhonchi appreciated, no increased work of breathing GI: soft, nondistended, epigastric and RUQ tenderness, BS normoactive MSK: no gross deformities appreciated Skin: warm, dry, no rash appreciated Neuro: alert, oriented, no focal neurologic deficit appreciated Principal Diagnosis Acute Cholecystitis Discharge Exam Constitutional: well-appearing, no acute distress HEENT: NCAT, no conjunctival injection Resp: no increased work of breathing GI: surgical wounds w/o surrounding erythema, non-bleeding, no exudates MSK: no gross deformities appreciated Skin: warm, dry, no rash appreciated Neuro: AAOx4, afebrile, NAD Discharge Data Allergies Allergy/AdvReac Type Severity Reaction Status Date / Time No Known Drug Allergies Allergy Unknown Verified 08/28/24 08:54 Consultations 08/27/24 19:27 Consult General Surgery Stat 08/27/24 20:12 ED Decision to Admit Stat 08/27/24 23:18 Consult Gastroenterology Routine Procedures Performed Operation Date: 08/28/24 08:40 Actual Procedures p Robotic Laparoscopic Cholecystectomy(Not Applicable) - Domi Connelly DO Ordered Studies 08/27/24 16:22 CT abd pelvis IV con only Stat 08/27/24 20:02 US gallbladder Stat Hospital Course (1) Acute cholecystitis: - POD #2 after robotic cholecystectomy - CBC w/o leukocytosis and overall unremarkable. Hgb stable - CMP showed decrease in AST of 240 --> 145 and ALT of 287 -->236. Other LFTs wnl. Would consider repeat at post-discharge follow up to ensure downtrend continues - Still in pain but Percocet helps some; overnight had increased pain but was exacerbated by vomiting Will also discharge with Protonix and Pepcid to address possible gastritis that may also be affecting current pain and nausea - Encouraged continued ambulation - Stable for discharge today. (2) Hematemesis: - Patient with hematemesis during acute cholecystitis pain. Vomit had bright red blood with some clots. - Had some N/V on days prior to admission - More suspicious for esophageal irritation/Clarisa Radha tear rather than bleeding ulcer; Hgb stable - Continue Protonix 40 mg twice daily and Pepcid 20 mg bid after discharge - GI evaluated and no indication for EGD - Stable for discharge. Encourage PCP follow up (3) Hypothyroidism: - Continue home levothyroxine (4) HTN (hypertension): - BP in appropriate range/stable - Home procardia was held due to stable BP during admission. May resume after discharge if BP elevated Plan Discharge back home today. Total Time Total Time Spent Total Time Spent (In Minutes): <30. Discharge Plan Discharge Items Patient Disposition: Home - Self-Care Reason For Visit: ACUTE BRIAN Discharge Diagnosis: robotic cholecystectomy Condition on Discharge: Fair Activity: Per Instructions section Lifting: No more than 10 pounds Bathing Comment: you can shower. No soaking in pools/bath for 2 weeks Exercise/Sports: Wait until after follow-up appointment Driving/Machine Use: no driving while taking narcotics for pain Non-emergency contact: Surgeon Call non-emergency contact if: you have any medication questions, your pain is not controlled, your pain is worsening, you have a fever, your temperature is above 101.5, your wound has increased redness, your wound has increased drainage and your wound pain has increased Follow-up/Referrals: Issac Bishop M.D. [Primary Care Provider] - 09/05/24 2:20 pm (Arrive at 2:05pm ) Domi Torres DO [Physician] - (call office for follow up in 2 weeks ) Charity Garcia MD [Resident] - 09/19/24 1:00 pm (Arrive at 12:45pm) Diet: Regular Addtl Attending Provider Instructions: Your hospital due to abdominal pain and was determined to be related to an inflamed gallbladder (acute cholecystitis). For this reason, you were taken to surgery to have your gallbladder removed. The procedure went well without complications and your postop course was also without complications. Given that the source of the infection (your gallbladder) was removed due to your surgery, we will not be discharging you with any antibiotics. However, if you start to develop fevers, chills, weakness, redness/warmth/tenderness around the areas of your incisions, or any new symptoms, please let your primary care provider or your surgeon know since this may warrant an evaluation to see if you do need antibiotics or any other management. Due to your recent surgery, we do recommend that you avoid lifting anything 25 pounds and heavier. You should have a follow-up appointment with the surgery clinic around 2 weeks after discharge. After your surgery, your liver enzymes were higher than usual which was very likely related to the infection in your gallbladder that you had at the time of admission. Today we checked your liver enzyme levels again and they have started to decrease, which makes any residual stones in your bile ducts or other causes less likely. We recommend that you follow-up with your primary care provider since at this follow-up appointment they may recheck your liver enzymes to ensure that they keep going down. We will be discharging you with a new medication called Percocet, which is a combination of Tylenol and oxycodone, which is a stronger pain medication (opiate). This medication can lead to some drowsiness, therefore we recommend that you avoid driving or operating any heavy machinery when you do take this medication. Since the medication does have an opiate there is a possibility that you can get constipated as a side effect, if this does occur you can use [id number] MiraLAX which you can titrate yourself until you get adequate bowel movements. At the time of admission, there was concern for possible blood in your vomit. After keeping an eye on your labs every day and seeing how your clinical picture developed, we determined that the bleeding that you had noticed is not related to an ulcer in your stomach or your intestine, but more likely it was from some minor irritation in your esophagus from the vomiting that you had prior to admission. Your blood count stayed pretty much the same every time we checked it which is very reassuring since it tells that that is very unlikely that you are bleeding from anywhere. We will also be discharging you with a medication called Protonix and another called Pepcid. Both of these medications are antiacids that help in decreasing the pain from any acid reflux that you may be experiencing. Please take Protonix 40 mg by mouth 2 times a day, and you can use Pepcid 20 mg every day or you can take it up to twice a day if you do feel pain from heartburn. A discharge summary will be sent to your primary care physician to ensure continuity of care. Please bring this discharge summary with you to your next office appointment so that your provider can review it at that time. Follow-up appointments: Keep all your follow-up appointments as already scheduled. If you cannot make an appointment, notify your provider. Medications: Your medication list has been reviewed and reconciled upon discharge to ensure accuracy and continuity of care. An updated list of all your medications is included with your hospital discharge paperwork. Please review this list closely, and make note of any changes. Take your medications as instructed; do not skip a dose of your medicines. Make sure all of your doctors know every medicine you are taking (including dthp-ixd-qvkzies medicines, vitamins, and supplements). Call your primary care provider before taking any new medicines (including over- the-counter medicines, vitamins, and supplements), because some of these may interact with your current medications, or may make your symptoms worse. Tell your primary care provider if you cannot afford your medications. CONTACT YOUR PRIMARY CARE PROVIDER if you experience any of the following: Worsening of symptoms Fever, chills, or fatigue Difficulty following your treatment plan, or difficulty taking medications CALL 911 OR GO TO THE EMERGENCY DEPARTMENT if you experience any of the following: Sudden, severe abdominal pain or nausea/vomiting Severe chest pain, or chest pain that radiates (moves) to your jaw or arm Sudden, severe shortness of breath or difficulty breathing Thank you for allowing us to participate in your care. Addtl Upper Marker Provider Instructions: You have surgical glue called dermabond on your surgical site incisions. You may shower with this on. This will tend to come off within a couple of weeks. Do not pick at it. Pending Studies at Discharge: Yes Studies:: surgical pathology Stand-Alone Forms: [employer], Smoking Cessation Medications and DC Order Prescriptions: New oxycodone 5 mg tablet 5 - 10 mg PO .[id number]-[id number] PRN (Reason: pain, for initial therapy, max 6 tabs per day) Qty: 15 0RF famotidine 20 mg Tablet 20 mg PO BID Qty: 30 0RF pantoprazole 40 mg Tablet,Delayed Release (Dr/Ec) 40 mg PO BID Qty: 30 0RF MAG-AL 200-200 mg/5 mL Suspension 15 ml PO AC Qty: 630 0RF Continued levothyroxine 50 mcg tablet 50 mcg PO DAILY Qty: 90 3RF (DME) Ketone Urine Test Strip See Rx Instructions .MEDSUPPLY Qty: 50 5RF Rx Instructions: As directed to check ketones in urine once a day in the morning (DME) OneTouch Verio test strips Strip See Rx Instructions .MEDSUPPLY Qty: 150 5RF Rx Instructions: check blood sugars 4 times a day (DME) blood-glucose meter [OneTouch Verio Reflect Meter] Misc See Rx Instructions miscellaneous .MEDSUPPLY Qty: 1 0RF Rx Instructions: As directed (DME) lancets [OneTouch Delica Plus Lancet] 33 gauge misc See Rx Instructions .MEDSUPPLY Qty: 150 5RF Rx Instructions: As directed check blood sugars 4 times a day Ozempic 0.25 mg or 0.5 mg (2 mg/3 mL) pen injector 0.25 mg subcut .weekly Qty: 3 3RF Rx Instructions: start Ozempic at 0.25 mg and then inc to 0.5 mg after 4 weeks Discharge Orders: Discharge Order (Routine); Ordered 08/30/24 Ordered By: Charity Lui/Other Patient Handouts: Anatomy of the Digestive System Admission Data Admit Date/Time: 08/27/24 21:31 Attending Provider: Lopez Brush Admit Provider: Luis Ruffin Primary Care Provider: Issac Bishop Other Providers: Domi Torres; Norma Shah; Tonia Cope; Akhil Plummer; Stephanie Stevens; Erika Mayes; Nelly Dempsey; Lisa Naidu; Bárbara Ruelas; Gee Knight; Jay Jamil; Cruz Douglass; Thomas Lan; Bisi Parada; Sherice Moe; Cynthia Stratton; Tosha Armas; Bea Gregory; Edin Canales; Fanta Sevilla; Sam Alvarado Jr; Kehinde Nielsen.; Evans Faust; Eric Nguyen; Talha Garsia; Huma Lancaster; Pranay Ocasio I; Maria G Aiken; Shabbir Dacosta Other Interventions: Discharge Summary Assessment (RN) Last Done: 08/30/24 13:35 Supervising Physician Co-Signing Physician Notes I personally examined the patient and verified all heredia points of history and exam, discussed case, and agree with decision making with Dr Garcia doing better still some pain and nausea but feels up to going home. Vitals noted, in general she is awake and alert pleasant no distress. HEENT normocephalic atraumatic mucous membranes moist. Breathing unlabored no accessory muscle use good effort. Skin without rashes pallor or icterus. Neuro without focal deficits. Cholecystitisstatus postcholecystectomy. doing better. safe/stable for home. LFTs as outpt ~1wk; pepcid/protonix for short term. otherwise as above Otherwise as above Resident Activity Tracking Resident Involvement: Resident Care Provided Care Provided: Adult Hospital Medicine
--- NOTE | 2024-08-30 19:01 | Billing Data ---
Date of Service August 30, 2024 Coding Level of Care Code 34627 IN/OBS DISCH 30 MIN/LESS
== END 2024-08-30 13:41 | disposition home or self-care (01) | DRG 417 ==
LOC: ED 16:17 → SUATTDRO 21:31 → 3W 21:31

== ENCOUNTER 2025-05-25 10:21 | Inpatient (IN) ==
--- NOTE | 2025-05-25 11:05 | Emergency Department Note ---
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 Stop: 06/08/25 17:30 Last Admin: 05/28/25 08:48 Dose: 2 mg Documented By: Admin: 05/27/25 22:57 Dose: 2 mg Documented By: Admin: 05/27/25 18:13 Dose: 2 mg Documented By: [email or web address] Admin: 05/27/25 09:48 Dose: 2 mg Documented By: Admin: 05/27/25 03:45 Dose: 2 mg Documented By: [id number] Ondansetron HCl (Ondansetron Inj 2 Mg/Ml 2 Ml Vial) 4 mg IV NOW STA Stop: 05/25/25 11:33 Last Admin: 05/25/25 11:45 Dose: 4 mg Documented By: ESTEFANIA Ondansetron HCl (Ondansetron Inj 2 Mg/Ml 2 Ml Vial) 4 mg IV NOW STA Stop: 05/25/25 14:29 Last Admin: 05/25/25 16:04 Dose: 4 mg Documented By: COLIN Ondansetron HCl (Ondansetron Inj 2 Mg/Ml 2 Ml Vial) 4 mg IV Q6H PRN PRN Reason: Nausea Stop: 06/24/25 15:41 Last Admin: 05/27/25 20:21 Dose: 4 mg Documented By: Admin: 05/27/25 08:33 Dose: 4 mg Documented By: Admin: 05/26/25 21:03 Dose: 4 mg Documented By: [id number] Admin: 05/26/25 12:10 Dose: 4 mg Documented By: Admin: 05/26/25 03:02 Dose: 4 mg Documented By: [id number] Admin: 05/25/25 20:22 Dose: 4 mg Documented By: [id number] Imaging Data Attestation: I personally reviewed and interpreted this imaging study as follows: Discharge Plan Visit Data Chief Complaint: Abdominal Pain Stated Complaint: ABD PAIN, NAUSEA, VOMIT, FEVER ON AND OFF ED Provider: Colby Finley ED Midlevel Provider: Marilyn Munoz Discharge Problem: Acute diverticulitis, Intractable nausea and vomiting Patient Disposition: Admitted As Inpatient Condition: Fair Discharge Instructions Interventions: ED Discharge Assessment Last Done: 05/25/25 16:20
[2025-05-25 11:19] LABS: Hematocrit (blood only) 43.1 % (37.0-47.0); Hemoglobin 14.3 g/dl (12.0-16.0); Immature Granulocytes # (auto) 0.02 K/uL (0.01-0.20); Immature Granulocytes % (auto) 0.2 %; Mean Corpuscular Hemoglobin 26.3 pg (25.0-34.0); Mean Corpuscular Volume 79.4 fL (80.0-100.0); Platelet Count 266 K/uL (130-400); RDW Standard Deviation 37.2 fL (36.4-46.3); Red Blood Count 5.43 M/uL (4.20-5.40); White Blood Count 10.91 K/ul (4.8-10.8)
[2025-05-25 11:20] LABS: Appearance Urine Cloudy (Clear); Bacteria Urine Automated 2+ (None Seen); Cast Urine Automated 0-2 /lpf (0-2); Glucose Urine UA Negative (Negative); WBC Urine Automated 0-5 /hpf (0-5)
[2025-05-25 11:37] LABS: Alanine Aminotransferase 18.0 U/L (7-52); Albumin Globulin Ratio 1.0 (0.9-2); Alkaline Phosphatase 83.0 U/L (34-104); Anion Gap 7.0 (3-11); Bilirubin,Total 1.0 mg/dl (0.2-1.0); Blood Urea Nitrogen 10.0 mg/dl (6-23); Calcium 9.0 mg/dl (8.6-10.3); Carbon Dioxide 25.0 mmol/L (21-32); Chloride 101.0 mmol/L (98-107); Creatinine Clr Calc Pharmacy 127.3 ml/min; Globulin 4.1 gm/dl (2.5-4.0); Glucose 109.0 mg/dl (70-99(Fasting)); Lipase 8.0 U/L (11-82); Potassium 4.1 mmol/L (3.5-5.1); Sodium 133.0 mmol/L (136-145); Total Protein 8.2 gm/dl (6.0-8.3)
[2025-05-25] MEDS: SODIUM CHLORIDE 0.9% 1,000 ML IV ONE (11:42)
[2025-05-25] MEDS: ONDANSETRON INJ 2 MG/ML 2 ML VIAL IV STA ×2 (11:45→16:04)
[2025-05-25] MEDS: ACETAMINOPHEN 1,000 MG/100 ML VIAL IV STA (11:45)
[2025-05-25] MEDS: OPTIRAY 320 100ml IV ONE (11:56)
[2025-05-25 11:59] LABS: Pregnancy Test, Serum Negative (Negative)
--- NOTE | 2025-05-25 12:38 | CT Scan Report ---
ABDOMEN AND PELVIS CT WITH IV CONTRAST CT DOSE: 1479.25 mGy.cm HISTORY: diffuse low abd pain TECHNIQUE: Multiaxial CT images of the abdomen and pelvis were performed following the IV administrat ion of 90 cc of Optiray, A dose lowering technique was utilized adhering to the principles of ALARA. COMPARISON STUDY: 11/13/2024 FINDINGS: ABDOMEN: Liver, spleen, pancreas, and adrenal glands are unremarkable. Kidneys show no hydronephrosis . No abdominal aortic aneurysm. Pelvis: Uterus and adnexa are grossly unremarkable. Urinary bladder is decompressed. There is proxima l sigmoid diverticulosis. There is short segment wall thickening with inflammation at the proximal si gmoid colon consistent with acute diverticulitis. No free fluid, free air, or abscess. No bowel obstr uction. No enlarged adenopathy. Osseous structures: No acute osseous findings. IMPRESSION: Acute uncomplicated sigmoid diverticulitis. ACT 112: Negative or not required by law. The above report was generated using voice recognition software. It may contain grammatical, syntax o r spelling errors. Electronically signed by: Ata Narayan M.D. 05/25/2025 12:37 PM
[2025-05-25] MEDS: AMOXICILLIN/CLAVULANATE 875 MG TAB PO ONE (13:00)
[2025-05-25] MEDS: KETOROLAC TROMETHAMINE 15 MG/ML VIAL IV ONE (13:23)
[2025-05-25] MEDS ORDERED: MoRPHine SULFATE 2 MG/ML CARP IM PRN (15:26)
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
[2025-05-25] MEDS: FAMOTIDINE 20MG IV PUSH 20 MG/5 ML SYR IV STA (16:04)
[2025-05-25] MEDS: SODIUM CHLORIDE 0.9% 1,000 ML IV SCH (16:05)
[2025-05-25] MEDS: AMPICILLIN/SULBACTAM SOD 3,000 MG/100 ML BAG IV STA (16:05)
[2025-05-25] MEDS ORDERED: BLOOD GLUCOSE METER MS SCH (16:41)
[2025-05-25] MEDS: MoRPHine SULFATE 2 MG/ML CARP IV PRN (17:40)
[2025-05-25] MEDS: ONDANSETRON INJ 2 MG/ML 2 ML VIAL IV PRN (20:22)
[2025-05-26] MEDS: ACETAMINOPHEN 1,000 MG/100 ML VIAL IV STA (03:02)
[2025-05-26] MEDS: LEVOTHYROXINE SODIUM 125 MCG TABLET PO SCH (05:52)
[2025-05-26] MEDS ORDERED: LEVOTHYROXINE SODIUM 100 MCG TABLET PO SCH (06:30)
[2025-05-26 08:26] LABS: Hematocrit (blood only) 40.3 % (37.0-47.0); Hemoglobin 12.6 g/dl (12.0-16.0); Mean Corpuscular Hemoglobin 25.5 pg (25.0-34.0); Mean Corpuscular Volume 81.6 fL (80.0-100.0); Platelet Count 225 K/uL (130-400); RDW Standard Deviation 39.1 fL (36.4-46.3); Red Blood Count 4.94 M/uL (4.20-5.40); White Blood Count 5.71 K/ul (4.8-10.8)
[2025-05-26 08:53] LABS: Alanine Aminotransferase 14.0 U/L (7-52); Albumin Globulin Ratio 1.1 (0.9-2); Alkaline Phosphatase 67.0 U/L (34-104); Anion Gap 4.0 (3-11); Bilirubin,Total 0.7 mg/dl (0.2-1.0); Blood Urea Nitrogen 9.0 mg/dl (6-23); Calcium 8.1 mg/dl (8.6-10.3); Carbon Dioxide 27.0 mmol/L (21-32); Chloride 107.0 mmol/L (98-107); Creatinine Clr Calc Pharmacy 146.6 ml/min; Globulin 3.2 gm/dl (2.5-4.0); Glucose 86.0 mg/dl (70-99(Fasting)); Potassium 3.8 mmol/L (3.5-5.1); Sodium 138.0 mmol/L (136-145); Total Protein 6.7 gm/dl (6.0-8.3)
[2025-05-26] MEDS: PIPERACILLIN/TAZOBACTAM 4.5 GM/100 ML BAG IV STA (09:43)
[2025-05-26] MEDS: PROPRANOLOL HCL 60 MG LA CAP PO SCH (09:47)
[2025-05-26] MEDS: CHOLECALCIFEROL 125 MCG (5,000 UNITS) TAB PO SCH (09:48)
[2025-05-26] MEDS: DEXTROAMPHETAMINE/AMPHETAMINE IR 20 MG TAB PO SCH (09:48)
[2025-05-26] MEDS: ACETAMINOPHEN 325 MG TAB PO PRN (10:26)
--- NOTE | 2025-05-26 11:10 | Hospitalist Progress Note ---
Date of Service May 26, 2025 Assessment & Plan (1) Intractable nausea and vomiting: (2) Acute diverticulitis: Plan This is a 34 yo woman with PMH of cholecystitis s/p lap cholecystitis in aug 2024, ADHD, graves disease mixed with Luz Marina thyroiditis. #acute sigmoid diverticulitis CTAP: acute uncomplicated sigmoid diverticulitis. CBC w/ resolution of leukocytosis. BMP stable. s/p Unasyn --> switched to IV Zosyn, continue. Continue IVF until able to maintain adequate PO volume. Pain management: 1st line toradol, 2nd line morphine AM CBC, BMP #intractable nausea and vomiting has been ongoing prior to symptoms. PPI BID Zofran 1st line, Phenergan 2nd line Clear liquids, advance diet as tolerated. #Grave disease mixed with Luz Marina TSH 03/2025 elevated at 25 - repeat in AM Levothyroxine, propranolol ER 60mg # ADHD - Adderall 20mg daily DVT prophylaxis: Heparin Code: full Admission and Anticipated Discharge Date Admission Date: May 25, 2025 Supervising Physician Co-Signing Physician Notes The patient was not seen by me. The chart was reviewed. Case discussed with CARLOS Mckeon. Agree with assessment and plan Subjective Yessica was seen and examined this morning. She reports her pain has improved from admission. Reports she will occasionally get LLQ sharp pain or it will radiate throughout the abdomen. Reports nausea and one episode of vomiting. States she was having vomiting for at least 1 week prior to coming in. Denies any CP or SOB. Physical Exam Constitutional: WD/WN, vitals as above Eyes: PERRL, conjunctivae normal, anicteric sclerae Respiratory: normal respiratory effort Gastrointestinal (Abdomen): +LLQ pain, + BS Skin: no rashes, warm and dry Neurologic: PERRL, EOMI, accommodation nl, no face palsy, no dysarthria Psychiatric: A+Ox3, euthymic affect Results & Data Results & Data Vital Signs (Past 12 Hours) Vital Signs Temp Pulse Resp BP Pulse Ox O2 Del Method 05/26/25 09:48 65 99 Room Air 05/26/25 08:04 36.4 C L 44 L 16 100/66 99 Room Air PG Care Time/CCT Total # of Minutes Spent Total Time Spent with Patient: Total time spent is greater than 50% in coordination of care (as documented) at patient's floor/unit and/or counseling patient: Coding Level of Care Code 36552 SUB INP/OBS CARE 235MIN Diagnoses Intractable nausea and vomiting R11.2 Acute diverticulitis K57.92
[2025-05-26] MEDS: PANTOprazole 40 MG/10 ML SYR IV SCH (12:11)
[2025-05-26] MEDS: PIPERACILLIN/TAZOBACTAM 4.5 GM/100 ML BAG IV SCH (14:14)
[2025-05-26] MEDS: PROMETHAZINE 6.25 MG/50.25 ML BAG IV PRN (15:38)
[2025-05-26] MEDS: KETOROLAC TROMETHAMINE 15 MG/ML VIAL IV PRN (21:02)
[2025-05-27] MEDS: MoRPHine SULFATE 2 MG/ML CARP IV PRN (03:45)
[2025-05-27 07:52] LABS: Hematocrit (blood only) 38.0 % (37.0-47.0); Hemoglobin 11.8 g/dl (12.0-16.0); Immature Granulocytes # (auto) 0.02 K/uL (0.01-0.20); Immature Granulocytes % (auto) 0.4 %; Mean Corpuscular Hemoglobin 25.1 pg (25.0-34.0); Mean Corpuscular Volume 80.9 fL (80.0-100.0); Platelet Count 267 K/uL (130-400); RDW Standard Deviation 38.3 fL (36.4-46.3); Red Blood Count 4.70 M/uL (4.20-5.40); White Blood Count 5.01 K/ul (4.8-10.8)
[2025-05-27 08:25] LABS: Alanine Aminotransferase 18 U/L (7-52); Albumin Globulin Ratio 1.1 (0.9-2); Alkaline Phosphatase 64 U/L (34-104); Anion Gap 5 (3-11); Bilirubin,Total 0.5 mg/dl (0.2-1.0); Blood Urea Nitrogen 7 mg/dl (6-23); Calcium 7.8 mg/dl (8.6-10.3); Carbon Dioxide 25 mmol/L (21-32); Chloride 108 mmol/L (98-107); Creatinine Clr Calc Pharmacy 138.5 ml/min; Globulin 3.0 gm/dl (2.5-4.0); Glucose 84 mg/dl (70-99(Fasting)); Sodium 138 mmol/L (136-145); Total Protein 6.2 gm/dl (6.0-8.3)
[2025-05-27 08:28] LABS: Thyroid Stimulating Hormone 27.400 uIu/ml (0.300-4.500)
[2025-05-27 09:46] LABS: Potassium 3.9 mmol/L (3.5-5.1)
--- NOTE | 2025-05-27 13:22 | Hospitalist Progress Note ---
Date of Service May 27, 2025 Assessment & Plan (1) Intractable nausea and vomiting: (2) Acute diverticulitis: Plan This is a 34 yo woman with PMH of cholecystitis s/p lap cholecystitis in aug 2024, ADHD, graves disease mixed with Luz Marina thyroiditis. #acute sigmoid diverticulitis CTAP: acute uncomplicated sigmoid diverticulitis. CBC w/ resolution of leukocytosis. BMP stable. IV Zosyn, continue. Continue IVF until able to maintain adequate PO volume. Pain management: 1st line Toradol, 2nd line morphine AM CBC, BMP #intractable nausea and vomiting has been ongoing prior to symptoms. PPI BID Zofran 1st line, Phenergan 2nd line Clear liquids, advance diet as tolerated. #Grave disease mixed with Luz Marina TSH 27.400 w/ normal Free T4/T3 Reached out to Dr. Jonas to see if any additional lab work/med adjustments are needed while inpatient. Levothyroxine, propranolol ER 60mg # ADHD - Adderall 20mg daily DVT prophylaxis: Heparin Code: full Admission and Anticipated Discharge Date Admission Date: May 27, 2025 Supervising Physician Co-Signing Physician Notes The patient was not seen by me. The chart was reviewed. Case discussed with CARLOS Mckeon. Agree with assessment and plan Subjective Yessica was seen & examined this morning. She reports her pain/nausea is slowly improved. States she did have an episode of emesis after taking Tylenol this morning. States she did have 2 BMs. Physical Exam Constitutional: WD/WN, vitals as above Eyes: PERRL, conjunctivae normal, anicteric sclerae Respiratory: normal respiratory effort Gastrointestinal (Abdomen): +BS. + LLQ tenderness Skin: no rashes, warm and dry Neurologic: PERRL, EOMI, accommodation nl, no face palsy, no dysarthria Psychiatric: A+Ox3, euthymic affect Results & Data Results & Data Vital Signs (Past 12 Hours) Vital Signs Temp Pulse Resp BP Pulse Ox O2 Del Method 05/27/25 08:04 36.3 C L 53 L 16 101/63 98 Room Air PG Care Time/CCT Total # of Minutes Spent Total Time Spent with Patient: Total time spent is greater than 50% in coordination of care (as documented) at patient's floor/unit and/or counseling patient: Coding Level of Care Code 12415 SUB INP/OBS CARE 2/35MIN Diagnoses Intractable nausea and vomiting R11.2 Acute diverticulitis K57.92
[2025-05-28 07:09] LABS: Hematocrit (blood only) 38.2 % (37.0-47.0); Hemoglobin 12.0 g/dl (12.0-16.0); Mean Corpuscular Hemoglobin 25.0 pg (25.0-34.0); Mean Corpuscular Volume 79.6 fL (80.0-100.0); Platelet Count 262 K/uL (130-400); RDW Standard Deviation 37.2 fL (36.4-46.3); Red Blood Count 4.80 M/uL (4.20-5.40); White Blood Count 4.42 K/ul (4.8-10.8)
[2025-05-28 07:29] LABS: Alanine Aminotransferase 14.0 U/L (7-52); Albumin Globulin Ratio 1.1 (0.9-2); Alkaline Phosphatase 61.0 U/L (34-104); Anion Gap 5.0 (3-11); Bilirubin,Total 0.4 mg/dl (0.2-1.0); Blood Urea Nitrogen 5.0 mg/dl (6-23); Calcium 7.9 mg/dl (8.6-10.3); Carbon Dioxide 25.0 mmol/L (21-32); Chloride 108.0 mmol/L (98-107); Creatinine Clr Calc Pharmacy 121.6 ml/min; Globulin 2.9 gm/dl (2.5-4.0); Glucose 87.0 mg/dl (70-99(Fasting)); Potassium 3.6 mmol/L (3.5-5.1); Sodium 138.0 mmol/L (136-145); Total Protein 6.2 gm/dl (6.0-8.3)
[2025-05-28] MEDS: ACETAMINOPHEN 500 MG TAB PO SCH (11:02)
--- NOTE | 2025-05-28 13:08 | Hospitalist Progress Note ---
Date of Service May 28, 2025 Assessment & Plan (1) Intractable nausea and vomiting: (2) Acute diverticulitis: Plan This is a 34 yo woman with PMH of cholecystitis s/p lap cholecystitis in aug 2024, ADHD, graves disease mixed with Luz Marina thyroiditis. #acute sigmoid diverticulitis CTAP: acute uncomplicated sigmoid diverticulitis. CBC w/ resolution of leukocytosis. BMP stable. Switched from IV Zosyn to PO Augmentin to ensure pt can tolerate prior to dc. Pain management: Scheduled Tylenol; Oxycodone 5mg q4h prn for breakthrough pain. AM CBC, BMP #intractable nausea and vomiting PPI BID Zofran 1st line, Phenergan 2nd line Is able to tolerate meals but has been having occasional emesis following medication. Advanced to low fiber diet. #Grave disease mixed with Luz Marina TSH 27.400 w/ normal Free T4/T3 Levothyroxine outpatient dose was 125mcg --> increased to 150mcg Discussed via [place] w/ Dr. Jonas. Propranolol ER 60mg # ADHD - Adderall 20mg daily DVT prophylaxis: Heparin Code: full Admission and Anticipated Discharge Date Admission Date: May 27, 2025 Supervising Physician Co-Signing Physician Notes The patient was not seen by me. The chart was reviewed. Case discussed with CARLOS Mckeon. Agree with assessment and plan Subjective Yessica was seen & examined this morning. She reports she has had 3 episodes of emesis after taking medications since yesterday. reports that she is tolerating her current diet & not having any issues of emesis following that. Reports she has had several BM's that are looser in nature and more consistent with diarrhea. Reports she is ready to return home. Physical Exam Constitutional: WD/WN, vitals as above Eyes: PERRL, conjunctivae normal, anicteric sclerae Respiratory: normal respiratory effort Gastrointestinal (Abdomen): +LLQ tenderness, less guarding. +BS Skin: no rashes, warm and dry Neurologic: PERRL, EOMI, accommodation nl, no face palsy, no dysarthria Psychiatric: A+Ox3, euthymic affect Results & Data Results & Data Vital Signs (Past 12 Hours) Vital Signs Temp Pulse Resp BP Pulse Ox O2 Del Method 05/28/25 07:42 36.5 C 70 18 120/77 96 Room Air PG Care Time/CCT Total # of Minutes Spent Total Time Spent with Patient: Total time spent is greater than 50% in coordination of care (as documented) at patient's floor/unit and/or counseling patient: Coding Level of Care Code 50096 SUB INP/OBS CARE 2/35MIN Diagnoses Intractable nausea and vomiting R11.2 Acute diverticulitis K57.92
[2025-05-28] MEDS: PROMETHAZINE HCL 25 MG TAB PO PRN (13:41)
[2025-05-28] MEDS: AMOXICILLIN/CLAVULANATE 875 MG TAB PO SCH (18:21)
[2025-05-28] MEDS: ONDANSETRON 4 MG OD TAB PO PRN (20:28)
[2025-05-28] MEDS: KETOROLAC TROMETHAMINE 15 MG/ML VIAL IV ONE (22:15)
[2025-05-28 23:58] VITALS: TEMP 97.5
[2025-05-29] MEDS: LEVOTHYROXINE SODIUM 150 MCG TABLET PO SCH (05:40)
[2025-05-29 07:03] LABS: Hematocrit (blood only) 39.9 % (37.0-47.0); Hemoglobin 12.8 g/dl (12.0-16.0); Mean Corpuscular Hemoglobin 25.4 pg (25.0-34.0); Mean Corpuscular Volume 79.2 fL (80.0-100.0); Platelet Count 291 K/uL (130-400); RDW Standard Deviation 36.6 fL (36.4-46.3); Red Blood Count 5.04 M/uL (4.20-5.40); White Blood Count 5.50 K/ul (4.8-10.8)
[2025-05-29 07:26] LABS: Anion Gap 5.0 (3-11); Blood Urea Nitrogen 9.0 mg/dl (6-23); Calcium 8.4 mg/dl (8.6-10.3); Carbon Dioxide 28.0 mmol/L (21-32); Chloride 105.0 mmol/L (98-107); Creatinine Clr Calc Pharmacy 136.6 ml/min; Glucose 108.0 mg/dl (70-99(Fasting)); Potassium 3.8 mmol/L (3.5-5.1); Sodium 138.0 mmol/L (136-145)
[2025-05-29 08:08] VITALS: BP 101/69; PULSE 46; RESP 17; O2SAT 99
--- NOTE | 2025-05-29 09:49 | Discharge Summary ---
Discharge Summary Date of Service May 29, 2025 Principal Dx & Hospital Course #1 = Principal Diagnosis (1) Intractable nausea and vomiting: (2) Acute diverticulitis: Plan This is a 34 yo woman with PMH of cholecystitis s/p lap cholecystitis in aug 2024, ADHD, graves disease mixed with Luz Marina thyroiditis. #acute sigmoid diverticulitis CTAP: acute uncomplicated sigmoid diverticulitis. CBC w/ resolution of leukocytosis. BMP stable. Switched from IV Zosyn to PO Augmentin - tolerating well. Pain management: Scheduled Tylenol; Oxycodone 5mg q4h prn for breakthrough pain on discharge. #intractable nausea and vomiting PPI BID Zofran 1st line, Phenergan 2nd line Tolerating low fiber diet. #Grave disease mixed with Luz Marina TSH 27.400 w/ normal Free T4/T3 Levothyroxine outpatient dose was 125mcg --> increased to 150mcg on dc. Discussed via [place] w/ Dr. Jonas. --> will require to follow up closely. Propranolol ER 60mg # ADHD - Adderall 20mg daily Discharged home 05/29. Admission HPI Per Admitting Provider Yessica Leonard is a 34 yo woman with PMH of cholecystitis s/p lap cholec, Grave disease, ADHD, fatigue she was admitted in aug 2024; for cholecystitis, s/p lap millicent, but at that time, she was hematemeis episode and was advised outpatient EGD on 05/25/2025, she's came to our ED with intractable nausea, and vomiting, LLQ pain for 3-4 days. she described the pain as stabbing pain, she was unable to tolerate any clear liquid and WBC elevated at 11-[address] abdomen confirmed acute uncomplicated sigmoid diverticulitis on interview, she's admitted to LLQ pain and strong FHx of diverticulitis (father) she was advised to establish with GI about EGd and colonoscopy we discussed about low residue diet Discharge Exam General: NAD, VS as above Resp: normal respiratory effort, lungs clear to auscultation CV: RRR, no murmur, Abd: normal bowel sounds, minimal tenderness to palpation. Extremities: Moves all extremities, no edema Neuro: A&O x3, Skin: intact, no lesions noted Discharge Plan Discharge Items Patient Disposition: Home - Self-Care Reason For Visit: DIVERTICULITIS, INTRACTABLE NAUSEA VOMITING Discharge Diagnosis: Diverticulitis, Nausea/Vomiting Condition on Discharge: Fair Activity: Resume your previous activity Non-emergency contact: Primary Care Provider Call non-emergency contact if: you have any medication questions, your symptoms worsen and you have a fever Follow-up/Referrals: Issac Bishop M.D. [Primary Care Provider] - Diet: Low Fiber Addtl Attending Provider Instructions: Ms. Wagner, You were recently hospitalized secondary to abdominal pain, nausea, and vomiting. You were found to have diverticulitis. Your thyroid levels are still abnormal which is also contributing to some of your symptoms. Upon discharge: Please take Augmentin twice daily for the next 3.5 days. Your first dose will be this evening, 05/29. You may administer with food to avoid GI upset. Please take a daily probiotic to help with side effects from the antibiotics (loose bowel movements) You may continue to use Tylenol 1000mg every 8 hours to help with pain. For breakthrough pain, you may use Oyxocodone 5mg every 4 hours as needed. For nausea: Please use Zofran 4mg every 6 hours as needed as a 1st line agent and for breakthrough nausea please use Phenergan 25mg every 6 hours as needed for a 2nd line agent. Your Levothyroxine dosing has been increase to 150mcg and an updated script has been sent to your pharmacy. You were also given pantoprazole 40mg twice daily to help with GI discomfort as well. - You may continue on this until seen by GI or your PCP. A GI referral has been sent on discharge - it is recommended to get a colonoscopy 4-6 weeks after an acute episode of diverticulitis. Please remain on a low fiber diet for ~4 weeks or until your bowels return to normal. Please follow up with your PCP within 1-2 weeks of discharge. Best of luck! Fern Christopher PA-C Pending Studies at Discharge: No Stand-Alone Forms: My LiveProfile, Smoking Cessation Medications and DC Order Prescriptions: New pantoprazole 40 mg Tablet,Delayed Release (Dr/Ec) 40 mg PO BID Qty: 60 0RF promethazine 25 mg Tablet 25 mg PO Q6H PRN (Reason: nausea and vomiting) Qty: 12 0RF levothyroxine [Synthroid] 150 mcg Tablet 150 mcg PO DAILYBB Qty: 30 0RF ondansetron 4 mg Tablet,Disintegrating 4 mg PO Q6H PRN (Reason: nausea and vomiting) Qty: 30 0RF amoxicillin-pot clavulanate 875-125 mg Tablet 1 tab PO BIDM Qty: 7 0RF oxycodone 5 mg Tablet 5 mg PO Q4H PRN (Reason: pain) Qty: 7 0RF Continued cholecalciferol (vitamin D3) 125 mcg (5,000 unit) tablet 125 mcg PO QAM Patient Comments: 05/25- OTC unable to verify dextroamphetamine-amphetamine [Adderall] 20 mg tablet 20 mg PO QAM propranolol 60 mg capsule,extended release 24 hr 60 mg PO QAM Discontinued levothyroxine [Levoxyl] 125 mcg tablet 100 mcg PO DAILYBB Rx Instructions: pl give levoxyl or Euthyrox whichever one is covered pt not doing well with generic ondansetron 4 mg tablet,disintegrating 4 mg PO DAILY PRN (Reason: n/v) No Action (DME) Ketone Urine Test Strip See Rx Instructions .MEDSUPPLY Qty: 50 5RF Rx Instructions: As directed to check ketones in urine once a day in the morning (DME) OneTouch Verio test strips Strip See Rx Instructions .MEDSUPPLY Qty: 150 5RF Rx Instructions: check blood sugars 4 times a day (DME) blood-glucose meter [OneTouch Verio Reflect Meter] Misc See Rx Instructions miscellaneous .MEDSUPPLY Qty: 1 0RF Rx Instructions: As directed (DME) lancets [OneTouch Delica Plus Lancet] 33 gauge misc See Rx Instructions .MEDSUPPLY Qty: 150 5RF Rx Instructions: As directed check blood sugars 4 times a day Discharge Orders: Discharge Order (Routine); Ordered 05/29/25 Ordered By: Fern Lui/Other Patient Handouts: Diverticulitis Dc Admission Data Admit Date/Time: 05/27/25 13:00 Attending Provider: Tristan Petit Admit Provider: Jos Og Primary Care Provider: Issac Bishop Other Providers: Jos Og Other Interventions: Discharge Summary Assessment (RN) Last Done: 05/29/25 10:27 Hospital Stay Data Consultations 05/25/25 14:45 ED Decision to Admit Stat Diagnostic Imagining Performed 05/25/25 11:29 CT abd pelvis IV con only Stat Pending Results Patient Have Any Pending Studies at Discharge: No Discharge Instructions Given to Patient (Per Discharging Provider) Ms. Wagner, Vijay were recently hospitalized secondary to abdominal pain, nausea, and vomiti ng. You were found to have diverticulitis. Your thyroid levels are still abnormal which is also contributing to some of your symptoms. Upon discharge: Please take Augmentin twice daily for the next 3.5 days. Your first dose will be this evening, 05/29. You may administer with food to avoid GI upset. Please take a daily probiotic to help with side effects from the antibiotics (loose bowel movements) You may continue to use Tylenol 1000mg every 8 hours to help with pain. For breakthrough pain, you may use Oyxocodone 5mg every 4 hours as needed. For nausea: Please use Zofran 4mg every 6 hours as needed as a 1st line agent and for breakthrough nausea please use Phenergan 25mg every 6 hours as needed for a 2nd line agent. Your Levothyroxine dosing has been increase to 150mcg and an updated script has been sent to your pharmacy. You were also given pantoprazole 40mg twice daily to help with GI discomfort as well. - You may continue on this until seen by GI or your PCP. A GI referral has been sent on discharge - it is recommended to get a colonoscopy 4-6 weeks after an acute episode of diverticulitis. Please remain on a low fiber diet for ~4 weeks or until your bowels return to normal. Please follow up with your PCP within 1-2 weeks of discharge. Best of luck! Fern Christopher PA-C Supervising Physician Co-Signing Physician Notes The patient was not seen by me. The chart was reviewed. Case discussed with CARLOS Mckeon. Agree with assessment and plan Total Time Total Time Spent Total Time Spent (In Minutes): 45 Total Time Includes: Examination of the Patient, Discharge Planning, Medication Reconciliation and Other Coding Level of Care Code 78921 INP/OBS DISCH >30 MIN Diagnoses Intractable nausea and vomiting R11.2 Acute diverticulitis K57.92
== END 2025-05-29 11:00 | disposition home or self-care (01) | DRG 392 ==
LOC: 3W 10:21 → ED 10:21 → SUATTDRO 14:45 → 3W 16:20

== ENCOUNTER 2025-07-03 16:06 | Inpatient (IN) ==
[2025-07-03 17:09] LABS: Hematocrit (blood only) 43.7 % (37.0-47.0); Hemoglobin 14.1 g/dl (12.0-16.0); Immature Granulocytes # (auto) 0.03 K/uL (0.01-0.20); Immature Granulocytes % (auto) 0.4 %; Mean Corpuscular Hemoglobin 25.8 pg (25.0-34.0); Mean Corpuscular Volume 80.0 fL (80.0-100.0); Platelet Count 321 K/uL (130-400); RDW Standard Deviation 38.6 fL (36.4-46.3); Red Blood Count 5.46 M/uL (4.20-5.40); White Blood Count 8.52 K/ul (4.8-10.8)
[2025-07-03 17:25] LABS: Alanine Aminotransferase 16.0 U/L (7-52); Albumin Globulin Ratio 1.1 (0.9-2); Albumin Level 4.2 gm/dl (3.4-5.0); Alkaline Phosphatase 76.0 U/L (34-104); Anion Gap 8.0 (3-11); Bilirubin,Total 0.3 mg/dl (0.2-1.0); Blood Urea Nitrogen 16.0 mg/dl (6-23); Calcium 9.6 mg/dl (8.6-10.3); Carbon Dioxide 27.0 mmol/L (21-32); Chloride 102.0 mmol/L (98-107); Creatinine Clr Calc Pharmacy 132.0 ml/min; Globulin 4.0 gm/dl (2.5-4.0); Glucose 126.0 mg/dl (70-99(Fasting)); Lipase 19.0 U/L (11-82); Potassium 3.6 mmol/L (3.5-5.1); Sodium 137.0 mmol/L (136-145); Total Protein 8.2 gm/dl (6.0-8.3)
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
[2025-07-03 17:29] LABS: Pregnancy Test, Serum Negative (Negative)
[2025-07-03] MEDS: OPTIRAY 320 100ml IV ONE (18:18)
--- NOTE | 2025-07-03 18:39 | CT Scan Report ---
EXAMINATION: CT of the abdomen and pelvis performed after the administration of IV contrast TECHNIQUE: Helical CT images from the lung bases through the symphysis pubis were obtained with contrast. Coronal and sagittal reformatted images were generated at a workstation for further assessment. Dose reduction techniques were achieved by using automatic exposure control and/or adjustment of mA and/or kV according to patient size and/or use of iterative reconstruction technique. COMPARISON: 06/09/2025 HISTORY: Abdominal pain FINDINGS: Lower chest: No consolidation. No pleural effusion or pneumothorax. Liver: No suspicious liver lesions. Portal veins appear patent. Gallbladder: No gallstones. No evidence of acute cholecystitis. Spleen: Normal size. Pancreas: No suspicious pancreatic lesions. The pancreatic duct is not dilated. Adrenal glands: No adrenal nodules. Kidneys: No hydronephrosis or obstructing renal stones. Bladder / Pelvic organs: Unremarkable. Bowel: No bowel obstruction. Inflammation again seen involving a sigmoid colonic diverticulum. No free air or abscess. The appendix is unremarkable. Lymph nodes: No retroperitoneal, mesenteric, or pelvic lymphadenopathy. Peritoneum / Retroperitoneum: No free fluid or air within the abdomen. Vessels: No infrarenal aortic aneurysm. Bones and soft tissues: No suspicious lesion in the bones. IMPRESSION: Redemonstrated findings of uncomplicated sigmoid diverticulitis. Interval increase in inflammatory changes. No free air or abscess. Electronically signed by Felix Quintero 07-03-2025 6:39 PM
[2025-07-03] MEDS: SODIUM CHLORIDE 0.9% 1,000 ML IV ONE (18:57)
[2025-07-03] MEDS: ONDANSETRON INJ 2 MG/ML 2 ML VIAL IV STA (19:00)
[2025-07-03] MEDS: MoRPHine SULFATE 4 MG/ML 1 ML CARP\\VIAL IV STA (19:00)
[2025-07-03] MEDS: ACETAMINOPHEN 1,000 MG/100 ML VIAL IV STA (19:01)
[2025-07-03 19:25] LABS: Appearance Urine Cloudy (Clear); Bacteria Urine Automated None Seen (None Seen); Cast Urine Automated 0-2 /lpf (0-2); Glucose Urine UA Negative (Negative); RBC Urine Automated >20 /hpf (0-2)
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
[2025-07-03 20:27] LABS: Magnesium 1.8 mg/dl (1.7-2.4)
--- NOTE | 2025-07-03 20:33 | Ultrasound Report ---
Exam(s): US PELVIS EXAM: US Pelvis Transabdominal, Complete CLINICAL HISTORY: Reason for exam: pelvic pain. TECHNIQUE: Real-time complete transabdominal pelvic ultrasound with image documentation. COMPARISON: 12/30/2023 FINDINGS: Uterus/cervix: The uterus measures 8.4 x 4.2 x 5.2 cm and is anteverted. The myometrium is unremarkable. The endometrial stripe is normal measuring 7 -10 mm. Right ovary: The right ovary measures 1.9 x 2.5 x 1.3 cm with normal Doppler blood flow. Left ovary: The left ovary measures 1.9 x 2.4 x 1.6 cm with normal Doppler blood flow. Free fluid: No free fluid. Bladder: Unremarkable as visualized. Wall is normal thickness for degree of distention. IMPRESSION: No acute findings in the pelvis. Electronically signed by: Bigg Shah MD 07/03/25 20:32 PM
[2025-07-03] MEDS: PIPERACILLIN/TAZOBACTAM 4.5 GM/100 ML BAG IV ONE (20:39)
[2025-07-03] MEDS: PANTOprazole 40 MG/10 ML SYR IV ONE (21:53)
[2025-07-03] MEDS: LACTATED RINGER'S 1,000 ML IV SCH (21:53)
[2025-07-03 22:10] LABS: Thyroid Stimulating Hormone 54.546 uIu/ml (0.300-4.500)
[2025-07-03 22:45] LABS: Influenza A virus by PCR Negative (Neg); Influenza B virus by PCR Negative (Neg); SARS CoV2 RNA(COVID-19) Ceph NEGATIVE (Negative)
[2025-07-03 22:48] LABS: T4 Free Thyroxine 0.42 ng/dl (0.61-1.60)
[2025-07-03] MEDS ORDERED: MoRPHine SULFATE 4 MG/ML 1 ML CARP\\VIAL IV PRN (23:27)
[2025-07-03] MEDS ORDERED: MELATONIN 3 MG TAB PO PRN (23:27)
[2025-07-04] MEDS: MoRPHine SULFATE 4 MG/ML 1 ML CARP\\VIAL IV PRN (01:01)
[2025-07-04] MEDS: PIPERACILLIN/TAZOBACTAM 4.5 GM/100 ML BAG IV SCH (02:21)
[2025-07-04] MEDS: ACETAMINOPHEN 1,000 MG/100 ML VIAL IV SCH (02:24)
[2025-07-04] MEDS: LEVOTHYROXINE SODIUM 150 MCG TABLET PO SCH (06:15)
[2025-07-04] MEDS: OXYMETAZOLINE 0.05% 30 ML BTL NAE ONE (07:27)
[2025-07-04] MEDS: CHLORASEPTIC (PHENOL) 1.4% SOLN 180 ML BTL MT PRN (07:28)
[2025-07-04] MEDS: ONDANSETRON INJ 2 MG/ML 2 ML VIAL IV PRN (07:31)
[2025-07-04 07:49] LABS: Hematocrit (blood only) 38.6 % (37.0-47.0); Hemoglobin 11.9 g/dl (12.0-16.0); Immature Granulocytes # (auto) 0.02 K/uL (0.01-0.20); Immature Granulocytes % (auto) 0.3 %; Mean Corpuscular Hemoglobin 25.4 pg (25.0-34.0); Mean Corpuscular Volume 82.3 fL (80.0-100.0); Platelet Count 244 K/uL (130-400); RDW Standard Deviation 40.2 fL (36.4-46.3); Red Blood Count 4.69 M/uL (4.20-5.40); White Blood Count 6.49 K/ul (4.8-10.8)
[2025-07-04 08:07] LABS: Alanine Aminotransferase 19.0 U/L (7-52); Albumin Globulin Ratio 0.9 (0.9-2); Albumin Level 3.3 gm/dl (3.4-5.0); Alkaline Phosphatase 60.0 U/L (34-104); Anion Gap 5.0 (3-11); Bilirubin,Total 0.9 mg/dl (0.2-1.0); Blood Urea Nitrogen 14.0 mg/dl (6-23); Calcium 8.2 mg/dl (8.6-10.3); Carbon Dioxide 29.0 mmol/L (21-32); Chloride 103.0 mmol/L (98-107); Creatinine Clr Calc Pharmacy 123.7 ml/min; Globulin 3.6 gm/dl (2.5-4.0); Glucose 97.0 mg/dl (70-99(Fasting)); Magnesium 1.8 mg/dl (1.7-2.4); Potassium 3.7 mmol/L (3.5-5.1); Sodium 137.0 mmol/L (136-145); Total Protein 6.9 gm/dl (6.0-8.3)
[2025-07-04] MEDS: PROPRANOLOL HCL 60 MG LA CAP PO SCH (10:00)
[2025-07-04] MEDS: PANTOprazole 40 MG/10 ML SYR IV SCH (10:00)
--- NOTE | 2025-07-04 16:51 | Hospitalist Progress Note ---
Date of Service July 04, 2025 Assessment & Plan (1) Acute diverticulitis: (2) Intractable nausea and vomiting: (3) Mild dehydration: (4) Abnormal menstrual cycle: Plan Patient is a 34-year-old female with past medical history of recurrent diverticulitis, ADHD, HTN, GERD, RLS, Graves' disease mixed with Luz Marina thyroiditis. Patient presented due to 2 weeks of nausea, vomiting, and diarrhea and several days of being unable to tolerate p.o. intake. She was found to have uncomplicated sigmoid diverticulitis and was admitted for IV antibiotics. #Acute uncomplicated diverticulitis patient with recurrent diverticulitis - suspect secondary to poor absorption of oral antibiotic with ongoing N/V/D. Patient does not feel as though she fully recovered from her episode of diverticulitis in May. AP CT revealed uncomplicated sigmoid diverticu litis; no noted colovesical fistulas or perforations. Continue Zosyn IV Clear liquid diet for now. She had 1 episode of vomiting today 07/04 Pain control with scheduled IV Tylenol, morphine 2-4 mg Q3h PRN moderatesevere pain Zofran as needed for nausea Stool cultures ordered given recent antibiotic use and ongoing diarrhea - still uncollected as patient has not had a BM yet Hold nonessential p.o. medications Referral to GI on discharge given recurrent episodes, patient requesting this as well #Mild dehydration with poor p.o. intake and GI losses. - UA concerning for dehydration on admission (elevated specific gravity and trace ketones) and questionable infection however patient denies any urinary symptoms - Clinically euvolemic. Monitor for signs of dehydration now that IV fluids have been completed - Urine culture pending Would be covered for infection with IV antibiotics above #Irregular vaginal bleeding patient reports second menses since recent childbirth approximately 18 months ago. She reports menses is much heavier than her baseline. - Transvaginal ultrasound revealed no significant abnormalities. - Continue to follow with OB and endocrinology in outpatient setting for ongoing irregular bleeding and PCOS workup #Flulike symptoms patient endorses rhinorrhea and sore throat on presentation - COVID/flu/RSV swab negative - Chloraseptic spray Q4h PRN sore throat #GERD transition p.o. pantoprazole to IV #Graves' disease and Luz Marina's thyroiditis follows with endocrinology, Dr. Jonas. - Continue propranolol for tachycardia associated - Continue Synthroid - was increased from 125 mcg to 150 mcg with recent hospitalization - TSH significantly elevated at 54.5, free T4 low at 0.42. Suspect poor absorption of Synthroid with ongoing N/V/D likely playing a role. Acute infection may also be impacting these values. Recommend repeating TSH with reflex free T4 in 4 weeks. Can adjust Synthroid as needed at that time #ADHD hold Dextroamphetamine-amphetamine VTE ppx: SCDs, low risk Dispo: Continue inpatient stay Updated at bedside Admission and Anticipated Discharge Date Admission Date: July 03, 2025 Supervising Physician Co-Signing Physician Notes Attending Attestation - Chart reviewed, care plan d/w CARLOS Mosley. I agree w/ the heredia components of her documentation. Kalia Venegas Subjective Patient seen and evaluated at bedside with her present. She reports ongoing diffuse abdominal pain. She was significantly nauseous earlier and had 1 episode of vomiting. She describes this emesis was primarily bile as she has not had significant oral intake. She denies nausea at this time. She has not had a bowel movement today. We reviewed the result of her CT A/P and pelvis ultrasound from admission. She reports that she never felt fully recovered from her last episode of diverticulitis. Since being discharged from from her last hospitalization for diverticulitis about 1 month ago, she has experienced intermittent nausea with vomiting and ongoing abdominal pain. She reports the abdominal pain is difficult to differentiate between her heavy menses versus diverticulitis related pain versus chronic back pain. She reports that her sore throat and headache from yesterday is somewhat improved today. No additional complaints or concerns at this time. Physical Exam Physical Exam: General: No acute distress, nondiaphoretic, well-developed, well-nourished. Skin: Warm, dry. No rashes or peripheral edema noted. Cardiac: Regular rate and rhythm without murmurs gallops or rubs. Pulm: Clear to auscultation bilaterally without wheezes, rales or rhonchi. Normal respiratory effort. 99% on room air. Abdominal: Soft, nondistended. Mild tenderness in upper quadrants. More significant tenderness in lower quadrants. Bowel sounds present. Neuro: A&O x3. No focal neurological deficits. Results & Data Results & Data Vital Signs (Past 12 Hours) Vital Signs Temp Pulse Resp BP Pulse Ox O2 Del Method 07/04/25 14:54 98.2 F 53 L 18 109/71 99 Room Air 10/24/25 07:09 97.3 F L 59 L 18 101/64 96 Room Air Laboratory Results Reviewed CBC with differential Reviewed CMP/chemistries Reviewed UA Reviewed serology Reviewed urine culture Diagnostic Findings Reviewed CT A/P Reviewed pelvis ultrasound PG Care Time/CCT Total # of Minutes Spent Total Time Spent with Patient: Total time spent is greater than 50% in coordination of care (as documented) at patient's floor/unit and/or counseling patient: Coding Level of Care Code 82599 SUB INP/OBS CARE 3/50MIN Diagnoses Acute diverticulitis K57.92 Intractable nausea and vomiting R11.2 Mild dehydration E86.0 Abnormal menstrual cycle N92.6
[2025-07-04] MEDS: ALUMINUM/MAGNESIUM SUSP 30 ML UDC PO PRN (20:58)
[2025-07-04] MEDS: KETOROLAC TROMETHAMINE 15 MG/ML VIAL IV PRN (20:59)
[2025-07-04] MEDS: FAMOTIDINE 20MG IV PUSH 20 MG/5 ML SYR IV SCH (21:05)
[2025-07-04] MEDS: PROCHLORPERAZINE 5 MG in SYRINGE 4 ML IV PRN (21:15)
[2025-07-04] MEDS: LACTATED RINGER'S 1,000 ML IV SCH (21:38)
--- NOTE | 2025-07-04 21:53 | Communication Note ---
Date of Service: July 04, 2025 Patient experiencing persistent nausea and vomiting leading to her being concerned of getting recurrence of sxs and thus not eating or drinking the ginge r josie she has at bedside. Still having abdominal discomfort and back pain. Possible that abdominal pain may be multifactorial and involve low oral intake/hunger, ?esophagitis from recurrent emesis (which could also be adding to nausea), menstrual cramps, and diverticulitis. Resumed mIVF since patient is still experiencing episodes of emesis and not having good PO intake. Also added Compazine IV for breakthrough nausea as well as pepcid and maalox. Added Toradol prn for pain associated to menstrual cramps, but advised patient that if there is a component of gastritis it would potentially exacerbate this, so would use sparingly. Resident Activity Tracking Resident Involvement: Resident Care Provided Care Provided: Adult Hospital Medicine
[2025-07-04] MEDS: SODIUM CHLORIDE 0.9% 1,000 ML IV SCH (22:05)
--- NOTE | 2025-07-05 08:14 | Hospitalist Progress Note ---
Date of Service July 05, 2025 Assessment & Plan (1) Acute diverticulitis: (2) Intractable nausea and vomiting: (3) Mild dehydration: (4) Abnormal menstrual cycle: Plan Patient is a 34-year-old female with past medical history of recurrent diverticulitis, ADHD, HTN, GERD, RLS, Graves' disease mixed with Luz Marina thyroiditis. Patient presented due to 2 weeks of nausea, vomiting, and diarrhea and several days of being unable to tolerate p.o. intake. She was found to have uncomplicated sigmoid diverticulitis and was admitted for IV antibiotics. #Acute uncomplicated diverticulitis patient with recurrent diverticulitis - suspect secondary to poor absorption of oral antibiotic with ongoing N/V/D. Patient does not feel as though she fully recovered from her episode of diverticulitis in May. AP CT revealed uncomplicated sigmoid diverticu litis; no noted colovesical fistulas or perforations. - Continue Zosyn IV - Clear liquid diet for now. Still experiencing intermittent N/V - Continue maintenance IV fluids given reduced PO intake - Pain control regimen: scheduled IV Tylenol, morphine 2-4 mg IV Q3h PRN moderatesevere pain, Toradol IV PRN for pain associated with menstrual crampsadvised that if there is a component of gastritis, Toradol could potentially exacerbate this so will use sparingly. K-pad PRN menstrual cramps - Anti-nausea regimen: Zofran IV, Compazine IV for breakthrough nausea, Pepcid IV, Maalox IV - Stool cultures ordered given recent antibiotic use and ongoing diarrhea - still uncollected as patient has not had a BM yet - Hold nonessential p.o. medications - Referral to GI on discharge given recurrent episodes, patient requesting this as well #Mild dehydration with poor p.o. intake and GI losses. - UA concerning for dehydration on admission (elevated specific gravity and trace ketones) and questionable infection however patient denies any urinary symptoms - Clinically euvolemic. Monitor for signs of dehydration now that IV fluids have been completed - Urine culture with mixed probable skin joce #Irregular vaginal bleeding patient reports second menses since recent childbirth approximately 18 months ago. She reports menses is much heavier than her baseline. - Transvaginal ultrasound revealed no significant abnormalities - Continue to follow with OB and endocrinology in outpatient setting for ongoing irregular bleeding and PCOS workup #Flulike symptoms patient endorses rhinorrhea and sore throat on presentation - COVID/flu/RSV swab negative - Chloraseptic spray Q4h PRN sore throat #GERD transition p.o. pantoprazole to IV #Graves' disease and Luz Marina's thyroiditis follows with endocrinology, Dr. Jonas. - Continue propranolol for tachycardia associated - Continue Synthroid - was increased from 125 mcg to 150 mcg with recent hospitalization - TSH significantly elevated at 54.5, free T4 low at 0.42. Suspect poor absorption of Synthroid with ongoing N/V/D likely playing a role. Acute infection may also be impacting these values. Recommend repeating TSH with reflex free T4 in 4 weeks. Can adjust Synthroid as needed at that time #ADHD hold Dextroamphetamine-amphetamine VTE ppx: SCDs, low risk Dispo: Continue inpatient stay Updated family at bedside Increased pain/nausea regimen Admission and Anticipated Discharge Date Admission Date: July 03, 2025 Supervising Physician Co-Signing Physician Notes Attending Attestation - Chart reviewed, care plan d/w CARLOS Mosley. I agree w/ the heredia components of her documentation. If patient's symptoms remain refractory to IV antibiotics & supportive care then obtain GI consultation and/or colorectal surgery consultation. Kalia Venegas MD Subjective Patient seen and evaluated at bedside with her , mother, and daughter present. She had 2 episodes of vomiting this morning, 1 prior to breakfast and 1 following breakfast. She reports improvement in her nausea with Compazine. She continues to have lower quadrant abdominal pain. She notes her menstrual bleeding has started to decrease. We discussed continuing on clear liquid diet for now given her ongoing nausea with vomiting. She reports her pain regimen is well controlling her pain currently. No additional complaints or concerns at this time Review of Systems Gastrointestinal: + abdominal pain, + nausea and + vomitin g Physical Exam Physical Exam: General: No acute distress, nondiaphoretic, well-developed, well-nourished. Skin: Warm, dry. No rashes or peripheral edema noted. Cardiac: Regular rate and rhythm without murmurs gallops or rubs. Pulm: Clear to auscultation bilaterally without wheezes, rales or rhonchi. Normal respiratory effort. 96% on room air. Abdominal: Soft, nondistended. Mild tenderness in upper quadrants. More significant tenderness in lower quadrants. Bowel sounds present. Neuro: A&O x3. No focal neurological deficits. Results & Data Results & Data Vital Signs (Past 12 Hours) Vital Signs Temp Pulse Resp BP Pulse Ox O2 Del Method 07/05/25 07:39 97.3 F L 57 L 16 126/83 98 Room Air 07/04/25 23:39 97.7 F 47 L 16 106/65 97 Room Air 07/04/25 20:50 Room Air Laboratory Results Reviewed CBC Reviewed BMP Reviewed urine culture PG Care Time/CCT Total # of Minutes Spent Total Time Spent with Patient: Total time spent is greater than 50% in coordination of care (as documented) at patient's floor/unit and/or counseling patient: Coding Level of Care Code 43906 SUB INP/OBS CARE 3/50MIN Diagnoses Acute diverticulitis K57.92 Intractable nausea and vomiting R11.2 Mild dehydration E86.0 Abnormal menstrual cycle N92.6
[2025-07-05 08:19] LABS: Hematocrit (blood only) 35.0 % (37.0-47.0); Hemoglobin 11.5 g/dl (12.0-16.0); Mean Corpuscular Hemoglobin 26.9 pg (25.0-34.0); Mean Corpuscular Volume 82.0 fL (80.0-100.0); Platelet Count 244 K/uL (130-400); RDW Standard Deviation 39.6 fL (36.4-46.3); Red Blood Count 4.27 M/uL (4.20-5.40); White Blood Count 4.98 K/ul (4.8-10.8)
[2025-07-05 08:35] LABS: Anion Gap 4.0 (3-11); Blood Urea Nitrogen 12.0 mg/dl (6-23); Calcium 7.9 mg/dl (8.6-10.3); Carbon Dioxide 28.0 mmol/L (21-32); Chloride 105.0 mmol/L (98-107); Creatinine Clr Calc Pharmacy 120.8 ml/min; Glucose 91.0 mg/dl (70-99(Fasting)); Potassium 4.0 mmol/L (3.5-5.1); Sodium 137.0 mmol/L (136-145)
[2025-07-05] MEDS: MoRPHine SULFATE 4 MG/ML 1 ML CARP\\VIAL IV STA (23:03)
[2025-07-06] MEDS: OXYMETAZOLINE 0.05% 30 ML BTL PRN (05:55)
[2025-07-06 07:06] LABS: Hematocrit (blood only) 36.0 % (37.0-47.0); Hemoglobin 11.1 g/dl (12.0-16.0); Mean Corpuscular Hemoglobin 25.6 pg (25.0-34.0); Mean Corpuscular Volume 82.9 fL (80.0-100.0); Platelet Count 248 K/uL (130-400); RDW Standard Deviation 41.0 fL (36.4-46.3); Red Blood Count 4.34 M/uL (4.20-5.40); White Blood Count 6.08 K/ul (4.8-10.8)
[2025-07-06 07:24] LABS: Anion Gap 6.0 (3-11); Blood Urea Nitrogen 11.0 mg/dl (6-23); Calcium 7.7 mg/dl (8.6-10.3); Carbon Dioxide 25.0 mmol/L (21-32); Chloride 107.0 mmol/L (98-107); Creatinine Clr Calc Pharmacy 104.7 ml/min; Glucose 102.0 mg/dl (70-99(Fasting)); Potassium 3.7 mmol/L (3.5-5.1); Sodium 138.0 mmol/L (136-145)
--- NOTE | 2025-07-06 13:42 | Hospitalist Progress Note ---
Date of Service July 06, 2025 Assessment & Plan (1) Acute diverticulitis: (2) Intractable nausea and vomiting: (3) Mild dehydration: (4) Abnormal menstrual cycle: Plan Patient is a 34-year-old female with past medical history of recurrent diverticulitis, ADHD, HTN, GERD, RLS, Graves' disease mixed with Luz Marina thyroiditis. Patient presented due to 2 weeks of nausea, vomiting, and diarrhea and several days of being unable to tolerate p.o. intake. She was found to have uncomplicated sigmoid diverticulitis and was admitted for IV antibiotics. #Acute uncomplicated diverticulitis patient with recurrent diverticulitis - suspect secondary to poor absorption of oral antibiotic with ongoing N/V/D. Patient does not feel as though she fully recovered from her episode of diverticulitis in May. AP CT revealed uncomplicated sigmoid diverticu litis; no noted colovesical fistulas or perforations. - Continue Zosyn IV - Clear liquid diet for now. Still experiencing intermittent N/V - Continue maintenance IV fluids given reduced PO intake - Pain control regimen: scheduled IV Tylenol, morphine 2-4 mg IV Q3h PRN moderatesevere pain, Toradol IV PRN for pain associated with menstrual crampsadvised that if there is a component of gastritis, Toradol could potentially exacerbate this so will use sparingly. K-pad PRN menstrual cramps - Anti-nausea regimen: Compazine IV first line, Phenergan IV second line, Zofran IV, third line, Pepcid IV, Maalox IV - Stool cultures ordered given recent antibiotic use and ongoing diarrhea - still uncollected as patient has not had a BM yet - Hold nonessential p.o. medications - Recommend referrals to GI and chemical packager on discharge - patient requesting this as well #Mild dehydration with poor p.o. intake and GI losses. - UA concerning for dehydration on admission (elevated specific gravity and trace ketones) and questionable infection however patient denies any urinary symptoms - Clinically euvolemic. Monitor for signs of dehydration now that IV fluids have been completed - Urine culture with mixed probable skin joce #Irregular vaginal bleeding patient reports second menses since recent childbirth approximately 18 months ago. She reports menses is much heavier than her baseline. - Transvaginal ultrasound revealed no significant abnormalities - Continue to follow with OB and endocrinology in outpatient setting for ongoing irregular bleeding and PCOS workup #Flulike symptoms patient endorses rhinorrhea and sore throat on presentation - COVID/flu/RSV swab negative - Chloraseptic spray Q4h PRN sore throat #GERD transition p.o. pantoprazole to IV #Graves' disease and Luz Marina's thyroiditis follows with endocrinology, Dr. Jonas. - Continue propranolol for tachycardia associated - Continue Synthroid - was increased from 125 mcg to 150 mcg with recent hospitalization - TSH significantly elevated at 54.5, free T4 low at 0.42. Suspect poor absorption of Synthroid with ongoing N/V/D likely playing a role. Acute infection may also be impacting these values. Recommend repeating TSH with reflex free T4 in 4 weeks. Can adjust Synthroid as needed at that time #ADHD hold Dextroamphetamine-amphetamine VTE ppx: SCDs, low risk Dispo: Continue inpatient stay Added Phenergan to nausea regimen Admission and Anticipated Discharge Date Admission Date: July 03, 2025 Supervising Physician Co-Signing Physician Notes Attending Attestation - Chart reviewed, care plan d/w CARLOS Mosley. I agree w/ the heredia components of her documentation. Kalia Venegas MD Subjective Patient seen and evaluated at bedside. She reports an episode of vomiting this morning. She states Compazine works well for her nausea, but Zofran does not help much. We discussed trying Phenergan as a second line nausea medication and she would like to try this. The chemical packager met with her this morning and started protein jell-o which she is well-tolerating. She should also follow-up with chemical packager outpatient, which she is agreeable to. She continues to have lower abdominal pain. Her pain regimen is controlling her pain fairly well. She reports that her menses is lightening. No additional complaints or concerns at this time. Physical Exam Physical Exam: General: No acute distress, nondiaphoretic, well-developed, well-nourished. Skin: Warm, dry. No rashes or peripheral edema noted. Cardiac: Regular rate and rhythm without murmurs gallops or rubs. Pulm: Clear to auscultation bilaterally without wheezes, rales or rhonchi. Normal respiratory effort. 95% on room air. Abdominal: Soft, nondistended. Mild tenderness in upper quadrants. More significant tenderness in lower quadrants. Bowel sounds present. Neuro: A&O x3. No focal neurological deficits. Results & Data Results & Data Vital Signs (Past 12 Hours) Vital Signs Temp Pulse Resp BP Pulse Ox O2 Del Method 07/06/25 08:50 Room Air 07/06/25 07:24 97.7 F 61 16 108/71 95 Room Air Laboratory Results Reviewed CBC, BMP PG Care Time/CCT Total # of Minutes Spent Total Time Spent with Patient: Total time spent is greater than 50% in coordination of care (as documented) at patient's floor/unit and/or counseling patient: Coding Level of Care Code 03828 SUB INP/OBS CARE 3/50MIN Diagnoses Acute diverticulitis K57.92 Intractable nausea and vomiting R11.2 Mild dehydration E86.0 Abnormal menstrual cycle N92.6
[2025-07-06] MEDS: PROMETHAZINE 6.25 MG/50.25 ML BAG IV PRN (16:13)
[2025-07-07] MEDS ORDERED: Nursing to Pharmacy Communication SCH (00:30)
[2025-07-07 06:45] LABS: Hematocrit (blood only) 34.8 % (37.0-47.0); Hemoglobin 11.4 g/dl (12.0-16.0); Mean Corpuscular Hemoglobin 26.6 pg (25.0-34.0); Mean Corpuscular Volume 81.1 fL (80.0-100.0); Platelet Count 247 K/uL (130-400); RDW Standard Deviation 39.3 fL (36.4-46.3); Red Blood Count 4.29 M/uL (4.20-5.40); White Blood Count 4.49 K/ul (4.8-10.8)
[2025-07-07 07:13] LABS: Anion Gap 6.0 (3-11); Blood Urea Nitrogen 10.0 mg/dl (6-23); Calcium 8.1 mg/dl (8.6-10.3); Carbon Dioxide 26.0 mmol/L (21-32); Chloride 105.0 mmol/L (98-107); Creatinine Clr Calc Pharmacy 115.3 ml/min; Glucose 113.0 mg/dl (70-99(Fasting)); Potassium 3.9 mmol/L (3.5-5.1); Sodium 137.0 mmol/L (136-145)
--- NOTE | 2025-07-07 08:03 | Hospitalist Progress Note ---
Date of Service July 07, 2025 Assessment & Plan (1) Diverticulitis: (2) Abnormal vaginal bleeding: (3) Intractable nausea and vomiting: Plan The patient is a 34-year-old female with past medical history including recurrent diverticulitis, ADHD, hypertension, GERD, RLS, and Graves' disease/Luz Marina's thyroiditis. She presented to the emergency department with 2 weeks of nausea, vomiting and diarrhea, with most recent several days and unable to tolerate oral intake. CT scan of abdomen and pelvis redemonstrated findings of uncomplicated sigmoid diverticulitis, with an interval increase inflammatory changes compared to 05/31/2025. There was no free air or abscess noted. She is getting IV antibiotics, IV morphine and now on clear diet after admision. #Diverticulitis- - History of recurrent diverticulitis, not responding to oral Abx. - Admitted for IV antibiotics and intractable nausea. - Labs: Stable. WBC 4.49k today. Plan - Advance to full liquid diet today. - DC morphine 4 mg. - Tylenol 1 gm IV PRN Q8 for mild pain. - Morphine 2 mg IV PRN Q8H for pain 6-9. - Will reassess tomorrow. #Vaginal bleeding: - Labs stable, : Neg - USG pelvis: UR. Hormomal vs Post vs PCOS - Will follow [facility]. #Intractable nausea - No more vomiting. -D/D: Diverticulitis vs Morphine use. - Lessen morphine. Continue anti-emetic use - Stop Ketorolac, start tylenol. - Morphine 4 mg held. - COmpazine, promethazine and ZOfran PRN order in. - Continue Protonix, famotidine BID. Dispo: Home once able to tolerate diet,and has bowel movement. Code: Full DVT prophylaxis: SCDs Admission and Anticipated Discharge Date Admission Date: July 03, 2025 Supervising Physician Co-Signing Physician Notes I personally examined the patient and verified heredia points of history and exam, discussed case, and agree with decision making and plan documented by Dr. Rollins. Continue advancing diet as tolerated and reducing morphine use to see if that improves nausea. Reviewed starting oral medication tomorrow if patient continues to have clinical improvement. Subjective Overall feeling better but still has lot of nausea, mostly limited to her throat. Belly pain is a lot better, almost none this morning. No fever. Tolerating clears. Physical Exam Physical Exam: Constitutional: Well appearing, No acute distress, PILCCOD: Negative HEENT: Atraumatic, Normocephalic, No conjunctival injection CVS: Looks well perfused. Respiratory: No increased work of breathing GI: Soft, Nondistended, Nontender, Bowel sounds + MSK: No gross deformities noted Skin: Warm, Dry, No rashes Neuro: Alert, Oriented to TPP, No Focal deficit Psych: Mood and Affect congruent, Cooperative on exam Results & Data Results & Data Vital Signs (Past 12 Hours) Vital Signs Temp Pulse Resp BP Pulse Ox O2 Del Method 07/07/25 07:41 36.5 C 53 L 16 117/79 98 Room Air 07/07/25 00:19 36.7 C 55 L 16 113/77 97 Room Air Resident Activity Tracking Resident Involvement: Resident Care Provided Care Provided: Adult Hospital Medicine
[2025-07-07] MEDS: MoRPHine SULFATE 4 MG/ML 1 ML CARP\\VIAL IV PRN (14:28)
[2025-07-07] MEDS: ACETAMINOPHEN 1,000 MG/100 ML VIAL IV PRN (17:20)
[2025-07-07] MEDS: POLYETHYLENE (MIRALAX) 17 GM PACK PO SCH (20:51)
--- NOTE | 2025-07-08 06:52 | Hospitalist Progress Note ---
Date of Service July 08, 2025 Assessment & Plan (1) Diverticulitis: (2) Abnormal vaginal bleeding: (3) Intractable nausea and vomiting: Plan The patient is a 34-year-old female with past medical history including recurrent diverticulitis, ADHD, hypertension, GERD, RLS, and Graves' disease/Luz Marina's thyroiditis. She presented to the emergency department with 2 weeks of nausea, vomiting and diarrhea, with most recent several days and unable to tolerate oral intake. CT scan of abdomen and pelvis re demonstrated findings of uncomplicated sigmoid diverticulitis, with an interval increase inflammatory changes compared to 05/31/2025. There was no free air or abscess no avani. She is getting IV antibiotics, IV morphine. She was advanced on full liquid diet yesterday, which she could not tolerate and had nausea and vomiting. #Diverticulitis- - History of recurrent diverticulitis, ? not responding to oral Abx, ?Not absorbing antibiotics well. - Hence Admitted for IV antibiotics and intractable nausea. - Labs: Stable. WBC 4.49k on 07/07/2025 Plan - Continue full liquid diet - Gastroenterology consult for intractable nausea - Tylenol 1 gm IV PRN Q8 for mild pain. - Morphine 2 mg IV PRN Q8H for pain 6-9. #Intractable nausea - No more vomiting. -D/D: Diverticulitis vs Morphine use vs Gastric ulcer vs Clarisa elyse tear because of recurrent vomiting. - Lessen morphine. Continue anti-emetic use - Stop Ketorolac, start tylenol. - Morphine 4 mg held. - Compazine, promethazine and Zofran PRN order in. - Continue Protonix BID, famotidine BID. - Add carafate TID. #Vaginal bleeding: - Labs stable, : Neg - USG pelvis: UR. Hormonal vs Post vs PCOS - Will follow [facility]. Dispo: Home once able to tolerate diet,and has bowel movement. Code: Full DVT prophylaxis: SCDs Admission and Anticipated Discharge Date Admission Date: July 03, 2025 Supervising Physician Co-Signing Physician Notes I personally examined the patient and verified heredia points of history and exam, discussed case, and agree with decision making and plan documented by Dr. Rollins. Patient reluctant to start p.o. antibiotics due to persistent diarrhea and nausea associated with p.o. intake. 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 Tee Juan ( Evelia) is here for diverticulitis, has been on IV antibiotics for 5 days now. She still feel nauseous, especially after full liquid diet she tried yesterday, pain was severe, along with nausea, she threw up as well. Mostly pain was on her upper abdomen after she ate liquid diet. Now she is afraid to try any food. She ate some soup this morning, though. Still some pain now but not as severe as yesterday. Yesterday's situation was almost like at home when she presented to hospital this time. She does not want this happening again. She is not sure if she can tolerate oral antibiotics. Physical Exam Physical Exam: Constitutional: Well appearing, No acute distress, PILCCOD: Negative HEENT: Atraumatic, Normocephalic, No conjunctival injection CVS: Looks well perfused. Respiratory: No increased work of breathing GI: Soft, Nondistended, Mild tenderness in epigastric region and paraumbilical region MSK: No gross deformities noted Skin: Warm, Dry, No rashes Neuro: Alert, Oriented to TPP, No Focal deficit Psych: Mood and Affect congruent, Cooperative on exam Results & Data Results & Data Vital Signs (Past 12 Hours) Vital Signs Temp Pulse Resp BP Pulse Ox O2 Del Method 07/07/25 23:20 36.3 C L 70 16 129/82 98 Room Air
--- NOTE | 2025-07-08 11:36 | Gastrointestinal Consultation ---
Date of Consultation July 08, 2025 Assessment & Plan (1) Diverticulitis: -Currently being treated with IV Zosyn. -She continues a full liquid diet. -Dr. Dacosta did discuss with hospitalist about considering a colorectal surgery evaluation. -Patient needs eventual colonoscopy when this resolves. (2) Nausea: Likely multifactorial, but would continue PPI use and anti-emetics, while also minimizing narcotic use. No alarm symptoms of hematemesis/coffee ground emesis or other symptoms urgently necessitating EGD. At this point, would continue the PPI, but an EGD for nausea would be low yield and would first focus on treating her diverticulitis. Supervising Physician Co-Signing Physician Notes Somewhat of a difficult history. History of Graves' disease with various episodes of hyper- and hypothyroidism she states she is very sensitive and has had difficulty managing her thyroid issues. Sounds like she was started on a GLP-1 by her sr. [employer] system administrator. [place] maybe would helped her with the hy pothyroidism weight gain part but not clear difficult why that was started. States subsequently she started having nausea vomiting she thought it was from the Ozempic though symptoms have persisted. She was back here in November had a CT scan done questionable enteritis at that time with nausea vomiting. Told was viral. Since May she has had 3 CT scans first 1 suggesting acute uncomplicated diverticulitis second 1 performed in ER for abdominal pain showed mostly resolution. She notes at that time she actually had not follow the instructions in regards to taking her medications antibiotics and did not complete the course. After the second bout of diverticulitis she did take her medications as prescribed and now on this admission there appears to be once again inflammation in the sigmoid colon there is no abscess no fluid she is afebrile white count is normal. She has been afebrile here and on previous visits. Patient also gives a history of remote peptic ulcer disease. Also gives a history of actinomycosis this can cause a chronic suppurative granulomatous lesion. States she had a lymph node swelling in the groin. There is a history of complicated diverticulitis in a father with requirement for colostomy he was in his 40s at time of diagnosis. Impression atypical for diverticulitis based on duration of the process now dating potentially back to November. Fluctuating clinical picture persistence despite antibiotics lack of fever and elevated white count in her younger age. As colorectal surgery's opinion. Might benefit from a flexible sigmoidoscopy though of course there are risks in regards to scoping diverticulitis. However with normal white count relatively benign abdomen this may be appropriate. Consider infectious disease consult with her history of actinomycosis and potential for involvement of the GI tract. These patients typically require high-dose penicillin for 2 to 6 weeks followed by oral penicillin or amoxicillin. Current nausea and vomiting may be aggravated by the use of narcotics. on admission peptic ulcer disease would be very unlikely in this patient on pantoprazole 40 twice daily. Await colorectal surgery opinion. Consider ID consultation. History of Present Illness Reason for Consultation: "Intractable n/v, diverticulitis" Attending Physician: Analy Donahue, DO History of Present Illness Patient is a 34 yo female hospitalized with diverticulitis. It appears that she has had several CT scans in 2024 beginning in November with a scan that questioned an enteritis. Then in May 2025, she had a CT scan that showed sigmoid diverticulitis. She was treated with antibiotics. A repeat CT scan on 06/08/25 indicated almost complete resolution. On 07/03/25, she had a CT scan that showed an acute, uncomplicated diverticulitis. She is currently hospitalized under hospitalist service and on IV Zosyn. She is requiring narcotic pain medication for pain. She notes nausea with a full liquid diet, but notes she does better with clear liquids. She is on multiple antiemetics as well as PPI therapy. She has a distant history of a stomach ulcer per her reports. She notes her father had a bowel resection due to diverticulitis. WBC count 4,490. Allergies Allergy/AdvReac Type Severity Reaction Status Date / Time No Known Drug Allergies Allergy Unknown Verified 04/10/25 11:20 Home Medications Medication Instructions Recorded Confirmed Type cholecalciferol (vitamin D3) 125 125 mcg PO QAM 04/10/25 07/03/25 History mcg (5,000 unit) tablet dextroamphetamine-amphetamine 20 20 mg PO QAM 04/10/25 07/03/25 History mg tablet (Adderall) propranolol 60 mg capsule,24 60 mg PO QAM 05/14/25 07/03/25 History hr,extended release ondansetron 4 mg disintegrating 4 mg PO Q6H PRN nausea and 05/29/25 07/03/25 Rx tablet vomiting #30 tabs pantoprazole 40 mg tablet,delayed 40 mg PO BID #60 tabs 05/29/25 07/03/25 Rx release promethazine 25 mg tablet 25 mg PO Q6H PRN nausea and 05/29/25 07/03/25 Rx vomiting #12 tabs levothyroxine 150 mcg tablet 150 mcg PO DAILY 07/03/25 07/03/25 History (Levoxyl) Patient History Medical History Vomiting Cholecystitis Hematemesis Acute upper abdominal pain Encounter for pre-operative examination Hematemesis Acute cholecystitis HTN (hypertension) variable Hypothyroidism Restless leg syndrome Peripheral edema distal lower extremities bilat-denies change or worsening since seeing OB/PCP GERD (gastroesophageal reflux disease) controlled, stable per pt Graves disease [facility] endocrine Hypothyroidism [facility] endocrine Migraine Surgical History Hx laparoscopic cholecystectomy (08/28/24) Robotic Laparoscopic Cholecystectomy(Not Applicable) - Domi Connelly DO H/O lymph node biopsy Left and right groin, pathology = most suggestive of a bacterial lymphadenitis Family history of reaction to anesthesia Father- respiratory problems with anesthesia Family History Father Family history of diabetes mellitus Cardiac disorder [place] at age 54 y/o Mother Diabetes Cardiac disorder Hypertension Grandfather Diabetes Grandmother Diabetes Cardiac disorder Father Hypertension Uncle Thyroid disease Aunt No problems noted. Denies family history of Family hx of colon cancer Family history of complications due to general anesthesia Breast cancer Bleeding disorder Cancer Social History Smoking Status: Never smoker Second Hand Exposure: No; Do You Dip or Chew Tobacco: No; Hx Alcohol Use: No Hx Substance Use: No Preferred Language: Marshallese Communication Ability: Effective Visual Impairment: No Limitations Top Cager Required: No Beliefs That Will Affect Care: None marital status: Current Living Situation: Family Current Living Situation Comment: lives at home with , daughter, mother and sister. current occupational status: unemployed Other Information That Helps Us Care for You: No Feels Safe at Home: Yes Safety Concerns: Feels Safe At This Time Diet: diabetic Assistive Devices: None Review of Systems Constitutional: no fever and no chills Respiratory: no cough and no dyspnea Cardiovascular: no chest pain Gastrointestinal: + abdominal pain Physical Exam Constitutional: well developed Gastrointestinal (Abdomen): Inspection/Auscultation: abdomen normal to inspection Psychiatric: Orientation: alert and oriented x 3 Results & Data Vital Signs (Past 12 Hours) Vital Signs Temp Pulse Resp BP Pulse Ox O2 Del Method 07/08/25 10:18 56 L 07/08/25 08:25 36.4 C L 55 L 16 119/79 97 Room Air PG Care Time/CCT Total # of Minutes Spent Total Time Spent with Patient: Total time spent is greater than 50% in coordination of care (as documented) at patient's floor/unit and/or counseling patient: Coding Level of Care Code 66835 IN/OBS CONSULT LVL 4,60M Diagnoses Diverticulitis K57.92 Nausea R11.0
[2025-07-08] MEDS: SUCRALFATE 1 GM/10 ML UDC PO SCH (13:49)
[2025-07-08] MEDS ORDERED: Nursing to Pharmacy Communication SCH (19:45)
[2025-07-08] MEDS: ACETAMINOPHEN 325 MG TAB PO SCH (21:32)
[2025-07-08] MEDS: ACETAMINOPHEN 1,000 MG/100 ML VIAL IV STA (23:45)
--- NOTE | 2025-07-09 07:33 | Hospitalist Progress Note ---
Date of Service July 09, 2025 Assessment & Plan (1) Diverticulitis: (2) Abnormal vaginal bleeding: (3) Intractable nausea and vomiting: Plan The patient is a 34-year-old female with past medical history including recurrent diverticulitis, ADHD, hypertension, GERD, RLS, and Graves' disease/Luz Marina's thyroiditis. She presented to the emergency department with 2 weeks of nausea, vomiting and diarrhea, with most recent several days and unable to tolerate oral intake. CT scan of abdomen and pelvis re demonstrated findings of uncomplicated sigmoid diverticulitis, with an interval increase inflammatory changes compared to 05/31/2025. There was no free air or abscess no avani. She is getting IV antibiotics, IV morphine. She was advanced on full liquid diet yesterday, which she could not tolerate and had nausea and vomiting. #Diverticulitis- - History of recurrent diverticulitis, ?not responding to oral Abx, ?Not absorbing antibiotics well. - Hence Admitted for IV antibiotics and intractable nausea. - Labs: Stable. WBC 4.49k on 07/07/2025 Plan - Continue full liquid diet - Gastroenterology consult for intractable nausea; recommend flex sigmoidoscopy tomorrow. - GI consults Colorectal- no active rec, will plan complete colonoscopy after 6- 8 weeks. - Tylenol 650 mg TID NEDA and 1 gm IV PRN for severe pain w/o this. - Morphine stopped #Intractable nausea - No more vomiting. -D/D: Diverticulitis vs Morphine use vs GLP use effect vs Gastric ulcer vs Clarisa elyse tear because of recurrent vomiting. - Lessen morphine. Continue anti-emetic use - Stop Ketorolac, start tylenol. - Morphine stopped - Compazine, promethazine and Zofran PRN order in. - Continue Protonix BID, famotidine BID. - Add carafate TID. - Will add scopolamine patch today. #Vaginal bleeding: - Labs stable, : Neg - USG pelvis: UR. Hormonal vs Post vs PCOS - Will follow [facility] Dispo: Home once able to tolerate diet,and has bowel movement. Code: Full DVT prophylaxis: SCDs Admission and Anticipated Discharge Date Admission Date: July 03, 2025 Supervising Physician Co-Signing Physician Notes I personally examined the patient and verified heredia points of history and exam, discussed case, and agree with decision making and plan documented by Dr. Rollins. Patient reports improvement of abdominal discomfort. Stool testing unremarkable. Still occasionally nauseous. She's hopeful to advance diet. Flex sig with GI tomorrow. Subjective Yessica still feels sick. She had pain, nausea, threw up this morning. Pain is mostly on her upper abdomen, sometimes in her lower belly too. No fever, headache until this morning. Pt seems very frustrated about staying in hospital for long time and not able to eat actual food. But whenever she tries to advance diet, she has this belly pain and she is afraid to eat more. She does think that endoscopy would find something for her. She is aware that GI is not planning for EGD, though. Today she admits taking Zepbound 1 week before she came to hospital. Her nausea was started with this, even though it's worsened after diverticulitis. No use of alcohol, smoking, or any recreational drug use. 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. And also that she is not able to be there with her daughter. Review of Systems Review of Systems: As per HPI Physical Exam Physical Exam: Constitutional: Well appearing, No acute distress, PILCCOD: Negative HEENT: Atraumatic, Normocephalic, No conjunctival injection CVS: Looks well perfused. Respiratory: No increased work of breathing GI: Soft, Nondistended, Mild tenderness in epigastric region and paraumbilical region MSK: No gross deformities noted Skin: Warm, Dry, No rashes Neuro: Alert, Oriented to TPP, No Focal deficit Psych: Mood and Affect congruent, Cooperative on exam Results & Data Results & Data Vital Signs (Past 12 Hours) Vital Signs Temp Pulse Resp BP Pulse Ox O2 Del Method 07/08/25 23:47 36.6 C 64 18 116/82 95 Room Air Resident Activity Tracking Resident Involvement: Resident Care Provided Care Provided: Adult Hospital Medicine
[2025-07-09 08:10] LABS: Cdiff Toxin B Gene (2yr or >) Negative Cdiff Gene (Neg)
[2025-07-09] MEDS: ACETAMINOPHEN 1,000 MG/100 ML VIAL IV STA (08:37)
[2025-07-09] MEDS: AMPICILLIN/SULBACTAM SOD 1,500 MG/100 ML BAG IV SCH (08:41)
[2025-07-09 08:46] LABS: Adenovirus F 40/41 PCR Not Detected (NotDetected); Campylobacter PCR Not Detected (NotDetected); Enteroaggregative E.coli(EAEC) Not Detected (NotDetected); Shiga-like Toxin E.coli (STEC) Not Detected (NotDetected); Vibrio species PCR Not Detected (NotDetected)
--- NOTE | 2025-07-09 10:28 | Surgery Consultation ---
<Statement entered by Francisco Ramirez MD - 07/09/25 15:53> I independently saw the patient and I agree with the assessment and plan of care. Date of Consultation July 09, 2025 Assessment & Plan (1) Diverticulitis: This is a 34y F with a PMH of variations of hyper vs hypothyroidism, grave's, with past surgical history of appendectomy, cholecystectomy and , here since 07/03 with abdominal pain, nausea/vomiting. CT scan on admission showed findings of uncomplicated sigmoid diverticulitis. Interval increase in inflammatory changes. No free air or abscess. Patient states she was 1st diagnosed with diverticulitis jun 08 in the ER and was ultimately discharged on a course of orals. She said she went back to life as normal and did not listen to diet recommendations etc and was inconsistent with her antibiotics. Since then she sought medical attention and recently completed a course of augmentin. She has since end may been dealing with intermittent pains, nausea/vomiting, etc. She represented on 07/03 with pain/n/v. CT scan showing as above uncomplicated acute diverticulitis. She is improving some. WBC 6.3, but normal since admission. No fevers. Abdomen soft, non distended, with mild ttp in LLQ as well as R mid/upper abd. GI considering a flex sigmoid on her given her medical history and for further evaluation. Her exam is not concerning for acute abdomen and she seems to be improving. Would be okay with them doing this evaluation. Continue supportive care otherwise for presumed diverticulitis. Advance diet slowly as tolerates to low fiber. Complete full course of abx. Consider full colonoscopy in 6-8 weeks once inflammation much improved. She may follow up with us in outpatient setting with our colorectal surgeon. (2) Intractable nausea and vomiting: History of Present Illness Attending Physician: Analy Donahue DO History of Present Illness This is a 34y F with a PMH of variations of hyper vs hypothyroidism, grave's, with past surgical history of appendectomy, cholecystectomy and , here since 07/03 with abdominal pain, nausea/vomiting. CT scan on admission showed findings of uncomplicated sigmoid diverticulitis. Interval increase in inflammatory changes. No free air or abscess. Patient states she was 1st diagnosed with diverticulitis jun 08 in the ER and was ultimately discharged on a course of orals. She said she went back to life as normal and did not listen to diet recommendations etc and was inconsistent with her antibiotics. She states she went to doctor about 1 week later with pain and was better this time around with taking her antibiotics as prescribed. She says she does get intermittent n/v with taking antibiotics. Now the pateint returned last week as she had lower abdominal pain and cramping that went into her back. She was unsure if related to her menses as she was in the time frame of her cycle. She went to her PCP last and given her pain came to the ER for evaluation. A CT scan here showed as above uncomplicated sigmoid diverticulitis. She has since been on a course of IV abx and white count was normal. Given her other medical issues GI considering doing a flex sig on patient for further workup. She has a family history of diverticulitis in her father (required surgery with ostomy), her aunt and a grandmother. She has never undergone a colonoscopy before. Not sure if clear family history of any colon cancer or IBD. Patient reports n/v yesterday, but doing better today. Currently on full liquids. She is passing gas and stools. PSH includes cholecystectomy, appendectomy. Had actinomyces in groin. She has this intermittent nausea/vomiting since her first diagnosis of diverticulitis. Allergies Allergy/AdvReac Type Severity Reaction Status Date / Time No Known Drug Allergies Allergy Unknown Verified 04/10/25 11:20 Home Medications Medication Instructions Recorded Confirmed Type cholecalciferol (vitamin D3) 125 125 mcg PO QAM 04/10/25 07/03/25 History mcg (5,000 unit) tablet dextroamphetamine-amphetamine 20 20 mg PO QAM 04/10/25 07/03/25 History mg tablet (Adderall) propranolol 60 mg capsule,24 60 mg PO QAM 05/14/25 07/03/25 History hr,extended release ondansetron 4 mg disintegrating 4 mg PO Q6H PRN nausea and 05/29/25 07/03/25 Rx tablet vomiting #30 tabs pantoprazole 40 mg tablet,delayed 40 mg PO BID #60 tabs 05/29/25 07/03/25 Rx release promethazine 25 mg tablet 25 mg PO Q6H PRN nausea and 05/29/25 07/03/25 Rx vomiting #12 tabs levothyroxine 150 mcg tablet 150 mcg PO DAILY 07/03/25 07/03/25 History (Levoxyl) Patient History Medical History Vomiting Cholecystitis Hematemesis Acute upper abdominal pain Encounter for pre-operative examination Hematemesis Acute cholecystitis HTN (hypertension) variable Hypothyroidism Restless leg syndrome Peripheral edema distal lower extremities bilat-denies change or worsening since seeing OB/PCP GERD (gastroesophageal reflux disease) controlled, stable per pt Graves disease [facility] endocrine Hypothyroidism [facility] endocrine Migraine Surgical History Hx laparoscopic cholecystectomy (08/28/24) Robotic Laparoscopic Cholecystectomy(Not Applicable) - Domi Connelly DO H/O lymph node biopsy Left and right groin, pathology = most suggestive of a bacterial lymphadenitis Family history of reaction to anesthesia Father- respiratory problems with anesthesia Family History Father Family history of diabetes mellitus Cardiac disorder [place] at age 54 y/o Mother Diabetes Cardiac disorder Hypertension Grandfather Diabetes Grandmother Diabetes Cardiac disorder Father Hypertension Uncle Thyroid disease Aunt No problems noted. Denies family history of Family hx of colon cancer Family history of complications due to general anesthesia Breast cancer Bleeding disorder Cancer Social History Smoking Status: Never smoker Second Hand Exposure: No; Do You Dip or Chew Tobacco: No; Hx Alcohol Use: No Hx Substance Use: No Preferred Language: Croatian Communication Ability: Effective Visual Impairment: No Limitations Independent Beauty Consultant Required: No Beliefs That Will Affect Care: None marital status: Current Living Situation: Family Current Living Situation Comment: lives at home with , daughter, mother and sister. current occupational status: unemployed Other Information That Helps Us Care for You: No Feels Safe at Home: Yes Safety Concerns: Feels Safe At This Time Diet: diabetic Assistive Devices: None Review of Systems Constitutional: no fever Respiratory: no dyspnea Cardiovascular: no chest pain Gastrointestinal: + abdominal pain, + nausea and + vomitin g; no blood in stools Physical Exam Physical Exam: awake/alert, no distress Respiratory: normal respiratory effort Gastrointestinal (Abdomen): Inspection/Auscultation: + abdominal surgical scar; abdomen not distended Percussion/Palpation: + abdomen tender (TTP noted in LLQ and some in some upper right sided) and abdomen soft Results & Data Vital Signs (Past 12 Hours) Vital Signs Temp Pulse Resp BP Pulse Ox O2 Del Method 07/09/25 07:37 97.3 F L 54 L 16 127/86 98 Room Air 07/08/25 23:47 97.9 F 64 18 116/82 95 Room Air Diagnostic Findings EXAMINATION: CT of the abdomen and pelvis performed after the administration of IV contrast TECHNIQUE: Helical CT images from the lung bases through the symphysis pubis were obtained with contrast. Coronal and sagittal reformatted images were generated at a workstation for further assessment. Dose reduction techniques were achieved by using automatic exposure control and/or adjustment of mA and/or kV according to patient size and/or use of iterative reconstruction technique. COMPARISON: 06/09/2025 HISTORY: Abdominal pain FINDINGS: Lower chest: No consolidation. No pleural effusion or pneumothorax. Liver: No suspicious liver lesions. Portal veins appear patent. Gallbladder: No gallstones. No evidence of acute cholecystitis. Spleen: Normal size. Pancreas: No suspicious pancreatic lesions. The pancreatic duct is not dilated. Adrenal glands: No adrenal nodules. Kidneys: No hydronephrosis or obstructing renal stones. Bladder / Pelvic organs: Unremarkable. Bowel: No bowel obstruction. Inflammation again seen involving a sigmoid colonic diverticulum. No free air or abscess. The appendix is unremarkable. Lymph nodes: No retroperitoneal, mesenteric, or pelvic lymphadenopathy. Peritoneum / Retroperitoneum: No free fluid or air within the abdomen. Vessels: No infrarenal aortic aneurysm. Bones and soft tissues: No suspicious lesion in the bones. IMPRESSION: Redemonstrated findings of uncomplicated sigmoid diverticulitis. Interval increase in inflammatory changes. No free air or abscess. Electronically signed by Felix Quintero 07-03-2025 6:39 PM PG Care Time/CCT Total # of Minutes Spent Total Time Spent with Patient: Total time spent is greater than 50% in coordination of care (as documented) at patient's floor/unit and/or counseling patient: Coding Level of Care Code 29643 IN/OBS CONSULT LVL 3,45M Diagnoses Diverticulitis K57.92 Intractable nausea and vomiting R11.2
--- NOTE | 2025-07-09 11:41 | Gastroenterology Progress Note ---
Date of Service July 09, 2025 Assessment & Plan (1) Diverticulitis: Plan: -Colorectal surgery consult appreciated -Will plan to move forward with flex sig tomorrow (07/10/25). Patient understand the risk of perforation, but also understands that her presentation is somewhat atypical. Please refer to Dr. Dacosta's attending physician statement for additions/revisions to plan of care. (2) Nausea: Plan: -Continue antiemetics -Continue PPI -Continue to minimize narcotic use Admission and Anticipated Discharge Date Admission Date: July 03, 2025 Supervising Physician Co-Signing Physician Notes Afebrile complaining of feeling hungry. Abdomen mild diffuse tenderness throughout no guarding no rebound no rigidity. Bowel sounds normal. Symptoms dating back to at least November. 4 CT scans in that timeframe. At this point I think it is important for us to establish the etiology of this sigmoid wall thickening. Could be sequela of previous diverticulitis could be diverticular associated inflammation could be Crohn's disease or neoplasia. Patient also has significant nausea and vomiting. Seems reasonable if were going to sedate her to do an EGD also. I think she be best served by full colon prep. There is a slight increased risk of colon perforation patients with diverticulitis. In the unlikely event that this would happen before that her colon is empty of stool. Also this will allow a more complete and shorter look time and if there is debris not cleared by her Fleet enema. Discussion with the patient at the bedside agreeable to proceed. Plan for tomorrow. Subjective Patient is a 34 yo female with concern for diverticulitis and nausea. Colorectal surgery has been consulted. Patient continues Zosyn. She is on antiemetics and PPI therapy. Review of Systems Constitutional: no fever and no chills Gastrointestinal: + abdominal pain and + nausea Physical Exam Constitutional: well developed Respiratory: normal respiratory effort Psychiatric: Orientation: alert and oriented x 3 Results & Data Results & Data Vital Signs (Past 12 Hours) Vital Signs Temp Pulse Resp BP Pulse Ox O2 Del Method 07/09/25 07:37 36.3 C L 54 L 16 127/86 98 Room Air 07/08/25 23:47 36.6 C 64 18 116/82 95 Room Air PG Care Time/CCT Total # of Minutes Spent Total Time Spent with Patient: Total time spent is greater than 50% in coordination of care (as documented) at patient's floor/unit and/or counseling patient: Coding Level of Care Code 54851 SUB INP/OBS CARE MIN Diagnoses Diverticulitis K57.92 Nausea R11.0
[2025-07-09 12:23] LABS: Hematocrit (blood only) 42.9 % (37.0-47.0); Hemoglobin 14.0 g/dl (12.0-16.0); Immature Granulocytes # (auto) 0.02 K/uL (0.01-0.20); Immature Granulocytes % (auto) 0.3 %; Mean Corpuscular Hemoglobin 25.9 pg (25.0-34.0); Mean Corpuscular Volume 79.3 fL (80.0-100.0); Platelet Count 312 K/uL (130-400); RDW Standard Deviation 39.0 fL (36.4-46.3); Red Blood Count 5.41 M/uL (4.20-5.40); White Blood Count 6.30 K/ul (4.8-10.8)
[2025-07-09 12:37] LABS: Alanine Aminotransferase 30.0 U/L (7-52); Albumin Globulin Ratio 1.0 (0.9-2); Albumin Level 4.4 gm/dl (3.4-5.0); Alkaline Phosphatase 86.0 U/L (34-104); Anion Gap 10.0 (3-11); Bilirubin,Total 0.5 mg/dl (0.2-1.0); Blood Urea Nitrogen 12.0 mg/dl (6-23); Calcium 10.2 mg/dl (8.6-10.3); Carbon Dioxide 26.0 mmol/L (21-32); Chloride 100.0 mmol/L (98-107); Creatinine Clr Calc Pharmacy 98.7 ml/min; Globulin 4.2 gm/dl (2.5-4.0); Glucose 82.0 mg/dl (70-99(Fasting)); Potassium 4.1 mmol/L (3.5-5.1); Sodium 136.0 mmol/L (136-145); Total Protein 8.6 gm/dl (6.0-8.3)
[2025-07-09] MEDS ORDERED: CHECK SCOPOLAMINE PATCH PLACEMENT SCH (16:00)
[2025-07-09] MEDS: OPTIRAY 320 100ml IV ONE (16:14)
--- NOTE | 2025-07-09 16:36 | CT Scan Report ---
EXAMINATION: CT of the abdomen and pelvis performed after the administration of IV contrast TECHNIQUE: Helical CT images from the lung bases through the symphysis pubis were obtained with contrast. Coronal and sagittal reformatted images were generated at a workstation for further assessment. Dose reduction techniques were achieved by using automatic exposure control and/or adjustment of mA and/or kV according to patient size and/or use of iterative reconstruction technique. COMPARISON: 07/03/2025 HISTORY: Abdominal pain FINDINGS: Lower chest: No consolidation. No pleural effusion or pneumothorax. Liver: No suspicious liver lesions. Portal veins appear patent. Gallbladder: No gallstones. No evidence of acute cholecystitis. Spleen: Normal size. Pancreas: No suspicious pancreatic lesions. The pancreatic duct is not dilated. Adrenal glands: No adrenal nodules. Kidneys: No hydronephrosis or obstructing renal stones. Bladder / Pelvic organs: Unremarkable. Bowel: No bowel obstruction. No abnormal bowel wall thickening. The appendix is not visualized. Similar findings of inflammatory change adjacent to a diverticulum of the sigmoid colon. No free air or abscess.. Lymph nodes: No retroperitoneal, mesenteric, or pelvic lymphadenopathy. Peritoneum / Retroperitoneum: No free fluid or air within the abdomen. Vessels: No infrarenal aortic aneurysm. Bones and soft tissues: No suspicious lesion in the bones. IMPRESSION: Similar-appearing inflammatory changes related to uncomplicated sigmoid diverticulitis. Electronically signed by Felix Quintero 07-09-2025 4:36 PM
[2025-07-09] MEDS: SCOPOLAMINE 1 MG TDSY TD SCH (16:58)
[2025-07-09] MEDS: ACETAMINOPHEN 1,000 MG/100 ML VIAL IV PRN (16:59)
[2025-07-09] MEDS: REMOVE TRANSDERM-SCOP PATCH SCH (17:14)
[2025-07-09] MEDS: CHECK SCOPOLAMINE PATCH PLACEMENT SCH (17:16)
[2025-07-09] MEDS: LAVAGE SOLUTION 4000ML PO SCH ×2 (20:34→21:00)
[2025-07-09] MEDS: Nursing to Pharmacy Communication SCH (21:00)
--- NOTE | 2025-07-10 07:53 | Hospitalist Progress Note ---
Date of Service July 10, 2025 Assessment & Plan (1) Diverticulitis: (2) Abnormal vaginal bleeding: (3) Intractable nausea and vomiting: Plan The patient is a 34-year-old female with past medical history including recurrent diverticulitis, ADHD, hypertension, GERD, RLS, and Graves' disease/Luz Marina's thyroiditis. She presented to the emergency department on with 2 weeks of nausea, vomiting and diarrhea, with most recent several days and unable to tolerate oral intake. CT scan of abdomen and pelvis re demonstrated findings of uncomplicated sigmoid diverticulitis, with an interval increase inflammatory changes compared to 05/31/2025. There was no free air or abscess noted. She is getting IV antibiotics, IV morphine. She was advanced on full liquid diet yesterday, which she could not tolerate and had nausea and vomiting. #Diverticulitis- - History of recurrent diverticulitis, ?not responding to oral Abx, ?Not absorbing antibiotics well. - Hence Admitted for IV antibiotics and intractable nausea. - Labs: Stable. WBC 4.49k on 07/07/2025 Plan - Continue full liquid diet - Gastroenterology consult for intractable nausea; recommend flex sigmoidoscopy tomorrow. - GI consults Colorectal- no active rec, will plan complete colonoscopy after 6- 8 weeks. - Tylenol 650 mg TID NEDA and 1 gm IV PRN for severe pain w/o this. - Morphine stopped #Intractable nausea - No more vomiting. -D/D: Diverticulitis vs Morphine use vs GLP use effect vs Gastric ulcer vs Clarisa elyse tear because of recurrent vomiting. - Lessen morphine. Continue anti-emetic use - Stop Ketorolac, start Tylenol. - Morphine stopped - Compazine, promethazine and Zofran PRN order in. - Continue Protonix BID, famotidine BID. - Add Carafate TID. - Will add scopolamine patch today. #Vaginal bleeding: - Labs stable, : Neg - USG pelvis: UR. Hormonal vs Post vs PCOS - Will follow [facility]. Dispo: Home once able to tolerate diet,and has bowel movement. Code: Full DVT prophylaxis: SCDs Admission and Anticipated Discharge Date Admission Date: July 03, 2025 Subjective Pt having EGD and Flex Sig with GI today. Review of Systems Review of Systems: As per HPI Physical Exam Physical Exam: Constitutional: Well appearing, No acute distress, PILCCOD: Negative HEENT: Atraumatic, Normocephalic, No conjunctival injection CVS: Looks well perfused. Respiratory: No increased work of breathing GI: Soft, Nondistended, Mild tenderness in epigastric region and paraumbilical region MSK: No gross deformities noted Skin: Warm, Dry, No rashes Neuro: Alert, Oriented to TPP, No Focal deficit Psych: Mood and Affect congruent, Cooperative on exam Results & Data Results & Data Vital Signs (Past 12 Hours) Vital Signs Temp Pulse Resp BP Pulse Ox O2 Del Method 07/10/25 07:18 36.6 C 62 16 119/72 91 Room Air 07/09/25 22:33 36.7 C 51 L 16 123/83 95 Room Air
[2025-07-10 09:27] LABS: Hematocrit (blood only) 41.4 % (37.0-47.0); Hemoglobin 13.8 g/dl (12.0-16.0); Mean Corpuscular Hemoglobin 26.2 pg (25.0-34.0); Mean Corpuscular Volume 78.7 fL (80.0-100.0); Platelet Count 323 K/uL (130-400); RDW Standard Deviation 38.2 fL (36.4-46.3); Red Blood Count 5.26 M/uL (4.20-5.40); White Blood Count 8.40 K/ul (4.8-10.8)
--- NOTE | 2025-07-10 09:36 | History & Physical Bridge Note ---
Date of Service July 10, 2025 History & Physical Bridge Note I have seen the patient and have reviewed the History & Physical and in the interval since the performance of the History & Physical I have noted the following changes of clinical significance: no changes noted. Keep NPO and proceed with EGD & flexible sigmoidoscopy today.
--- NOTE | 2025-07-10 09:39 | Anesthesiology Consultation ---
Date of Service July 10, 2025 Assessment & Plan ASA ASA2 Proposed Anesthesia Anesthesia Type: MAC Risk / Benefits Reviewed With: PT / POA / Parent / Guardian, Accepts Plan and Informed Consent Obtained History Surgery Operation Date: 07/10/25 16:45 Proposed Procedures p Esophagogastroduodenoscopy Dr. Praneeth Dacosta MD s Flexible Sigmoidoscopy Dr. Praneeth Dacosta MD Height/Weight Height: 5 ft 7 in Weight: 110.733 kg Allergies Allergy/AdvReac Type Severity Reaction Status Date / Time No Known Drug Allergies Allergy Unknown Verified 04/10/25 11:20 Medications Home Medications Medication Instructions Recorded Confirmed Last Taken cholecalciferol (vitamin D3) 125 125 mcg PO QAM 04/10/25 07/03/25 07/03/25 09:00 mcg (5,000 unit) tablet dextroamphetamine-amphetamine 20 20 mg PO QAM 04/10/25 07/03/25 07/03/25 09:00 mg tablet (Adderall) propranolol 60 mg capsule,24 60 mg PO QAM 05/14/25 07/03/25 07/03/25 09:00 hr,extended release ondansetron 4 mg disintegrating 4 mg PO Q6H PRN nausea and 05/29/25 07/03/25 06/08/25 tablet vomiting #30 tabs pantoprazole 40 mg tablet,delayed 40 mg PO BID #60 tabs 05/29/25 07/03/25 07/03/25 09:00 release promethazine 25 mg tablet 25 mg PO Q6H PRN nausea and 05/29/25 07/03/25 07/03/25 14:00 vomiting #12 tabs levothyroxine 150 mcg tablet 150 mcg PO DAILY 07/03/25 07/03/25 07/03/25 09:00 (Levoxyl) Active Medications Generic Name Dose Route Start Last Admin Trade Name Freq PRN Reason Stop Dose Admin Pantoprazole Sodium 40 mg in 10 mls @ 5 mls/min 07/04/25 09:00 07/10/25 08:26 Protonix IV 08/03/25 08:59 5 mls/min BID NEDA Administration Famotidine 20 mg in 5 mls @ 2.5 mls/min 07/04/25 21:00 07/10/25 08:30 Pepcid 20mg Iv Push IV 08/03/25 20:59 2.5 mls/min Q12H NEDA Administration Prochlorperazine 5 mg/ Syringe 5 mls @ 5 mls/min 07/04/25 20:14 07/10/25 01:54 IV 08/03/25 20:13 5 mls/min Q6H PRN Administration Nausea And Vomiting Promethazine HCl 6.25 mg in 50.25 mls @ 201 mls/hr 07/06/25 13:31 07/08/25 23:10 Phenergan IV 08/05/25 13:30 Infused Q6H PRN Infusion Nausea And Vomiting Ampicillin Sodium/Sulbactam Sodium 1,500 mg in 100 mls @ 200 mls/hr 07/09/25 08:00 07/10/25 08:24 Unasyn IV 07/19/25 07:59 200 mls/hr Q6H NEDA Administration Acetaminophen 1,000 mg in 100 mls @ 400 mls/hr 07/09/25 15:53 07/10/25 08:41 Ofirmev IV 07/12/25 15:52 400 mls/hr Q8H PRN Administration Pain Levothyroxine Sodium 150 mcg 07/04/25 06:30 07/10/25 05:37 Levothyroxine Sodium 150 Mcg Tablet PO 08/03/25 06:29 Not Given DAILYBB NEDA Miscellaneous 1 each 07/09/25 16:00 07/09/25 17:14 Remove Transderm-Scop Patch N/A 08/08/25 15:59 Not Given Q72H NEDA Miscellaneous 1 each 07/09/25 16:00 07/10/25 08:25 Check Scopolamine Patch Placement N/A 08/08/25 15:59 1 each QS NEDA Administration Ondansetron HCl 4 mg 07/03/25 23:27 07/09/25 07:50 Ondansetron Inj 2 Mg/Ml 2 Ml Vial IV 08/02/25 23:26 4 mg Q6H PRN Administration Nausea And Vomiting Phenol 1 sprays 07/04/25 06:21 07/04/25 10:09 Chloraseptic (Phenol) 1.4% Soln 180 Ml Btl MT 08/03/25 06:20 1 sprays Q4H PRN Administration Sore Throat Polyethylene Glycol 17 gm 07/07/25 21:00 07/10/25 08:25 Polyethylene (Miralax) 17 Gm Pack PO 08/06/25 20:59 Not Given BID NEDA Polyethylene Glycol/Electrolytes 8 dose 07/09/25 20:25 07/10/25 03:12 Lavage Solution 4000ml PO 08/08/25 20:24 8 dose BID@299,2024 NEDA Administration Propranolol HCl 60 mg 07/04/25 09:00 07/10/25 08:25 Propranolol Hcl 60 Mg La Cap PO 08/03/25 08:59 Not Given QAM NEDA Scopolamine 1 patch 07/09/25 16:00 07/09/25 16:58 Scopolamine 1 Mg Tdsy TD 08/08/25 15:59 1 patch Q72H NEDA Administration Sucralfate 1 gm 07/08/25 13:00 07/10/25 08:25 Sucralfate 1 Gm/10 Ml Udc PO 08/07/25 12:59 Not Given QID NEDA NPO Date Last Intake of Fluids: 07/09/25 Time Last Intake of Fluids: 23:59 Date Last Intake of Solids: 07/09/25 Time Last Intake of Solids: 10:03 Past Medical History Medical History Vomiting Cholecystitis Hematemesis Acute upper abdominal pain Encounter for pre-operative examination Hematemesis Acute cholecystitis HTN (hypertension) variable Hypothyroidism Restless leg syndrome Peripheral edema distal lower extremities bilat-denies change or worsening since seeing OB/PCP GERD (gastroesophageal reflux disease) controlled, stable per pt Graves disease [facility] endocrine Hypothyroidism [facility] endocrine Migraine Exercise / Class Metabolic Activity II 4-5 Yardwork/Stairs/Walk up hill Past Family History Family History Father Family history of diabetes mellitus Cardiac disorder GA at age 54 y/o Mother Diabetes Cardiac disorder Hypertension Grandfather Diabetes Grandmother Diabetes Cardiac disorder Father Hypertension Uncle Thyroid disease Aunt No problems noted. Denies family history of Family hx of colon cancer Family history of complications due to general anesthesia Breast cancer Bleeding disorder Cancer Past Surgical History Surgical History Hx laparoscopic cholecystectomy (08/28/24) Robotic Laparoscopic Cholecystectomy(Not Applicable) - Domi Connelly DO H/O lymph node biopsy Left and right groin, pathology = most suggestive of a bacterial lymphadenitis Family history of reaction to anesthesia Father- respiratory problems with anesthesia Past Anesthesia History No Hx of Anesthesia Complications and No Family Hx of Anesthesia Complications History of PONV No Hx of PONV and No Hx of Motion Sickness Social History Smoking Status: Never smoker Do You Dip or Chew Tobacco: No Hx Alcohol Use: No Alcohol type: wine alcohol intake frequency: holidays/special occasions only Hx Substance Use: No substance use type: does not use Physical Exam Vital Signs Last Vital Signs Temp 36.6 C 07/10/25 07:18 Pulse 62 07/10/25 07:18 Resp 16 07/10/25 07:18 BP 119/72 07/10/25 07:18 Pulse Ox 91 07/10/25 07:18 O2 Del Method Room Air 07/10/25 07:18 Constitutional no acute distress ENMT Mouth: no dentition abnormality Thyromental Distance: > or= 3.5 Finger Breadths Mallampati Class: III Neck normal visual inspection Respiratory normal respiratory effort; no respiratory distress Auscultation: lungs clear to auscultation bilaterally Cardiovascular Rate/Rhythm: regular rate and regular rhythm Heart Sounds: no murmur Musculoskeletal Spine: normal cervical ROM Psychiatric Orientation: alert and oriented x 3 Testing Laboratory Results 07/10/25 09:04 07/09/25 11:56 Urine Color [place] 07/03/25 19:10 Urine Appearance Cloudy (Clear) A 07/03/25 19:10 Urine pH 5.0 (4.5-7.5) 07/03/25 19:10 Ur Specific [place] > 1.045 (1.000-1.030) H 07/03/25 19:10 Urine Protein 1+ (Negative) H 07/03/25 19:10 Urine Glucose (UA) Negative (Negative) 07/03/25 19:10 Urine Ketones Trace (Negative) H 07/03/25 19:10 Urine Nitrite Negative (Negative) 07/03/25 19:10 Ur Leukocyte Esterase Trace (Negative) H 07/03/25 19:10 Urine WBC (Auto) 6-10 /hpf (0-5) H 07/03/25 19:10 Urine RBC (Auto) >20 /hpf (0-2) H 07/03/25 19:10 U Hyaline Cast (Auto) 0-2 /lpf (0-2) 07/03/25 19:10 U Epithel Cells (Auto) 3-5 /hpf (0-2) H 07/03/25 19:10 Urine Bacteria (Auto) None Seen (None Seen) 07/03/25 19:10 07/03/25 19:10 Urine Culture - Final Urine,Clean Catch More than three types of organisms present, all moderate counts mixed probable skin joce. No further identifications or sensitivities to follow. 07/07/25 14:21 POC Ur Test NEG Day of Procedure Evaluation. Date of Surgery July 10, 2025 Height/Weight Height: 5 ft 7 in Weight: 110.733 kg Vital Signs Last Vital Signs Temp 36.6 C 07/10/25 07:18 Pulse 62 07/10/25 07:18 Resp 16 07/10/25 07:18 BP 119/72 07/10/25 07:18 Pulse Ox 91 07/10/25 07:18 O2 Del Method Room Air 07/10/25 07:18 Allergies Allergy/AdvReac Type Severity Reaction Status Date / Time No Known Drug Allergies Allergy Unknown Verified 04/10/25 11:20 Medications Home Medications Medication Instructions Recorded Confirmed Last Taken cholecalciferol (vitamin D3) 125 125 mcg PO QAM 04/10/25 07/03/25 07/03/25 09:00 mcg (5,000 unit) tablet dextroamphetamine-amphetamine 20 20 mg PO QAM 04/10/25 07/03/25 07/03/25 09:00 mg tablet (Adderall) propranolol 60 mg capsule,24 60 mg PO QAM 05/14/25 07/03/25 07/03/25 09:00 hr,extended release ondansetron 4 mg disintegrating 4 mg PO Q6H PRN nausea and 05/29/25 07/03/25 06/08/25 tablet vomiting #30 tabs pantoprazole 40 mg tablet,delayed 40 mg PO BID #60 tabs 05/29/25 07/03/25 07/03/25 09:00 release promethazine 25 mg tablet 25 mg PO Q6H PRN nausea and 05/29/25 07/03/25 07/03/25 14:00 vomiting #12 tabs levothyroxine 150 mcg tablet 150 mcg PO DAILY 07/03/25 07/03/25 07/03/25 09:00 (Levoxyl) Active Medications Generic Name Dose Route Start Last Admin Trade Name Freq PRN Reason Stop Dose Admin Pantoprazole Sodium 40 mg in 10 mls @ 5 mls/min 07/04/25 09:00 07/10/25 08:26 Protonix IV 08/03/25 08:59 5 mls/min BID NEDA Administration Famotidine 20 mg in 5 mls @ 2.5 mls/min 07/04/25 21:00 07/10/25 08:30 Pepcid 20mg Iv Push IV 08/03/25 20:59 2.5 mls/min Q12H NEDA Administration Prochlorperazine 5 mg/ Syringe 5 mls @ 5 mls/min 07/04/25 20:14 07/10/25 01:54 IV 08/03/25 20:13 5 mls/min Q6H PRN Administration Nausea And Vomiting Promethazine HCl 6.25 mg in 50.25 mls @ 201 mls/hr 07/06/25 13:31 07/08/25 23:10 Phenergan IV 08/05/25 13:30 Infused Q6H PRN Infusion Nausea And Vomiting Ampicillin Sodium/Sulbactam Sodium 1,500 mg in 100 mls @ 200 mls/hr 07/09/25 08:00 07/10/25 08:24 Unasyn IV 07/19/25 07:59 200 mls/hr Q6H NEDA Administration Acetaminophen 1,000 mg in 100 mls @ 400 mls/hr 07/09/25 15:53 07/10/25 08:41 Ofirmev IV 07/12/25 15:52 400 mls/hr Q8H PRN Administration Pain Levothyroxine Sodium 150 mcg 07/04/25 06:30 07/10/25 05:37 Levothyroxine Sodium 150 Mcg Tablet PO 08/03/25 06:29 Not Given DAILYBB NEDA Miscellaneous 1 each 07/09/25 16:00 07/09/25 17:14 Remove Transderm-Scop Patch N/A 08/08/25 15:59 Not Given Q72H NEDA Miscellaneous 1 each 07/09/25 16:00 07/10/25 08:25 Check Scopolamine Patch Placement N/A 08/08/25 15:59 1 each QS NEDA Administration Ondansetron HCl 4 mg 07/03/25 23:27 07/09/25 07:50 Ondansetron Inj 2 Mg/Ml 2 Ml Vial IV 08/02/25 23:26 4 mg Q6H PRN Administration Nausea And Vomiting Phenol 1 sprays 07/04/25 06:21 07/04/25 10:09 Chloraseptic (Phenol) 1.4% Soln 180 Ml Btl MT 08/03/25 06:20 1 sprays Q4H PRN Administration Sore Throat Polyethylene Glycol 17 gm 07/07/25 21:00 07/10/25 08:25 Polyethylene (Miralax) 17 Gm Pack PO 08/06/25 20:59 Not Given BID NEDA Polyethylene Glycol/Electrolytes 8 dose 07/09/25 20:25 07/10/25 03:12 Lavage Solution 4000ml PO 08/08/25 20:24 8 dose BID@ NEDA Administration Propranolol HCl 60 mg 07/04/25 09:00 07/10/25 08:25 Propranolol Hcl 60 Mg La Cap PO 08/03/25 08:59 Not Given QAM NEDA Scopolamine 1 patch 07/09/25 16:00 07/09/25 16:58 Scopolamine 1 Mg Tdsy TD 08/08/25 15:59 1 patch Q72H NEDA Administration Sucralfate 1 gm 07/08/25 13:00 07/10/25 08:25 Sucralfate 1 Gm/10 Ml Udc PO 08/07/25 12:59 Not Given QID NEDA Past Anesthesia History No Hx of Anesthesia Complications and No Family Hx of Anesthesia Complications History of PONV No Hx of PONV and No Hx of Motion Sickness NPO Date Last Intake of Fluids: 07/09/25 Time Last Intake of Fluids: 23:59 Date Last Intake of Solids: 07/09/25 Time Last Intake of Solids: 10:03 HCG & FBG Results 07/07/25 14:21 POC Ur Test NEG Home Medications Home Medications Medication Instructions Recorded Confirmed Last Taken cholecalciferol (vitamin D3) 125 125 mcg PO QAM 04/10/25 07/03/25 07/03/25 09:00 mcg (5,000 unit) tablet dextroamphetamine-amphetamine 20 20 mg PO QAM 04/10/25 07/03/25 07/03/25 09:00 mg tablet (Adderall) propranolol 60 mg capsule,24 60 mg PO QAM 05/14/25 07/03/25 07/03/25 09:00 hr,extended release ondansetron 4 mg disintegrating 4 mg PO Q6H PRN nausea and 05/29/25 07/03/25 06/08/25 tablet vomiting #30 tabs pantoprazole 40 mg tablet,delayed 40 mg PO BID #60 tabs 05/29/25 07/03/25 07/03/25 09:00 release promethazine 25 mg tablet 25 mg PO Q6H PRN nausea and 05/29/25 07/03/25 07/03/25 14:00 vomiting #12 tabs levothyroxine 150 mcg tablet 150 mcg PO DAILY 07/03/25 07/03/25 07/03/25 09:00 (Levoxyl) Active Medications Generic Name Dose Route Start Last Admin Trade Name Freq PRN Reason Stop Dose Admin Pantoprazole Sodium 40 mg in 10 mls @ 5 mls/min 07/04/25 09:00 07/10/25 08:26 Protonix IV 08/03/25 08:59 5 mls/min BID NEDA Administration Famotidine 20 mg in 5 mls @ 2.5 mls/min 07/04/25 21:00 07/10/25 08:30 Pepcid 20mg Iv Push IV 08/03/25 20:59 2.5 mls/min Q12H NEDA Administration Prochlorperazine 5 mg/ Syringe 5 mls @ 5 mls/min 07/04/25 20:14 07/10/25 01:54 IV 08/03/25 20:13 5 mls/min Q6H PRN Administration Nausea And Vomiting Promethazine HCl 6.25 mg in 50.25 mls @ 201 mls/hr 07/06/25 13:31 07/08/25 23:10 Phenergan IV 08/05/25 13:30 Infused Q6H PRN Infusion Nausea And Vomiting Ampicillin Sodium/Sulbactam Sodium 1,500 mg in 100 mls @ 200 mls/hr 07/09/25 08:00 07/10/25 08:24 Unasyn IV 07/19/25 07:59 200 mls/hr Q6H NEDA Administration Acetaminophen 1,000 mg in 100 mls @ 400 mls/hr 07/09/25 15:53 07/10/25 08:41 Ofirmev IV 07/12/25 15:52 400 mls/hr Q8H PRN Administration Pain Levothyroxine Sodium 150 mcg 07/04/25 06:30 07/10/25 05:37 Levothyroxine Sodium 150 Mcg Tablet PO 08/03/25 06:29 Not Given DAILYBB NEDA Miscellaneous 1 each 07/09/25 16:00 07/09/25 17:14 Remove Transderm-Scop Patch N/A 08/08/25 15:59 Not Given Q72H NEDA Miscellaneous 1 each 07/09/25 16:00 07/10/25 08:25 Check Scopolamine Patch Placement N/A 08/08/25 15:59 1 each QS NEDA Administration Ondansetron HCl 4 mg 07/03/25 23:27 07/09/25 07:50 Ondansetron Inj 2 Mg/Ml 2 Ml Vial IV 08/02/25 23:26 4 mg Q6H PRN Administration Nausea And Vomiting Phenol 1 sprays 07/04/25 06:21 07/04/25 10:09 Chloraseptic (Phenol) 1.4% Soln 180 Ml Btl MT 08/03/25 06:20 1 sprays Q4H PRN Administration Sore Throat Polyethylene Glycol 17 gm 07/07/25 21:00 07/10/25 08:25 Polyethylene (Miralax) 17 Gm Pack PO 08/06/25 20:59 Not Given BID NEAD Polyethylene Glycol/Electrolytes 8 dose 07/09/25 20:25 07/10/25 03:12 Lavage Solution 4000ml PO 08/08/25 20:24 8 dose BID@0300,2024 NEDA Administration Propranolol HCl 60 mg 07/04/25 09:00 07/10/25 08:25 Propranolol Hcl 60 Mg La Cap PO 08/03/25 08:59 Not Given QAM NEDA Scopolamine 1 patch 07/09/25 16:00 07/09/25 16:58 Scopolamine 1 Mg Tdsy TD 08/08/25 15:59 1 patch Q72H NEDA Administration Sucralfate 1 gm 07/08/25 13:00 07/10/25 08:25 Sucralfate 1 Gm/10 Ml Udc PO 08/07/25 12:59 Not Given QID NEDA Exercise / Class Metabolic Activity Metabolic Activity: II 4-5 Yardwork/Stairs/Walk up hill Physical Exam Constitutional: no acute distress Mouth: no dentition abnormality Thyromental Distance: > or= 3.5 Finger Breadths Mallampati Class: III Neck: + visual inspection normal Respiratory: + respiratory effort normal and + clear to auscultation bilaterally; no respiratory distress Cardiovascular: + regular rate and + regular rhythm; no murmur Musculoskeletal: no limited cervical ROM Psychiatric: + alert and + oriented x 3 ASA ASA2 Proposed Anesthesia Proposed Anesthesia: MAC Risk / Benefits Reviewed With: PT / POA / Parent / Guardian, Accepts Plan and Informed Consent Obtained
--- NOTE | 2025-07-10 10:01 | Communication Note ---
Date of Service: July 10, 2025 Tolerated her prep well. Normal white count no fever CT scan unchanged. For EGD and flexible sigmoidoscopy today. Patient aware of increased risks of endoscopy and diverticulitis. Her abdomen is benign. No guarding rebound or rigidity. No masses. Evaluate source of nausea and vomiting whether just medication related. Evaluate persistent not improving inflammatory changes of the colon.
--- NOTE | 2025-07-10 10:23 | Communication Note ---
Date of Service: July 10, 2025 EGD normal Flexible sigmoidoscopy 2 distal transverse colon Diverticuli without cam diverticulitis. No pus noted significant edema. Recommend treat for 2 weeks with Augmentin. Consider repeat CT scan when pain free to evaluate where these changes in the sigmoid are chronic.
--- NOTE | 2025-07-10 10:27 | GI REPORT ---
[facility] Patient: AMENA NOVA I : 1990 Sex at : Female Age: 34 Years Procedure: Upper GI endoscopy Date: 07/10/2025 Attending Physician: Shabbir Dacosta MD Referring MD: Charity Garcia MD Indications: - Persistent nausea and vomiting Medications: - Monitored Anesthesia Care Complications: - No immediate complications. Estimated Blood Loss: - Estimated blood loss: None. Procedure: - The EGD scope was introduced through the mouth and advanced to the second part of the duodenum. - The upper GI endoscopy was accomplished without difficulty. - The patient tolerated the procedure well. Findings: - The examined esophagus was normal. - The entire examined stomach was normal. - The examined duodenum was normal. Impression: - Normal esophagus. - Normal stomach. - Normal examined duodenum. - No specimens collected. - Suspect symptoms are medication related, treat symptomatically Recommendation: Procedure Code(s): - 38221, Esophagogastroduodenoscopy, flexible, transoral; diagnostic, including collection of specimen(s) by brushing or washing, when performed (separate procedure) CPT(R) - 2023 copyright [employer]. All Rights Reserved. The CPT codes, CCI edits and ICD codes generated are intended as suggestions and were generated based on input data. These codes are preliminary and upon director of cardiopulmonary services review may be revised to meet current compliance and payer requirements. The provider is responsible for the final determination of appropriate codes, and modifiers. Shabbir Dacosta MD This document has been electronically signed. Note Initiated:07/10/2025 Note Completed:07/10/2025 10:26 AM \\[email or web address]\[email or web address]\Results\LIVE\[id number]
--- NOTE | 2025-07-10 10:31 | GI REPORT ---
[facility] Patient: AMENA NOVA I : 1990 Sex at : Female Age: 34 Years Procedure: Flexible Sigmoidoscopy Date: 07/10/2025 Attending Physician: Shabbir Dacosta MD Referring MD: Charity Garcia MD Indications: - Abnormal imaging. Thickened colon and diverticular area. Persistent evaluate for persistent diverticulitis or alternative pathology such as Crohn's disease ischemia or neoplasm Medications: - Monitored Anesthesia Care Complications: - No immediate complications. Estimated Blood Loss: - Estimated blood loss: None. Procedure: - The EGD scope was introduced through the anus and advanced to the left transverse colon. - The flexible sigmoidoscopy was accomplished without difficulty. - The patient tolerated the procedure well. - The quality of the bowel preparation was good. Findings: - The digital rectal exam was normal. Pertinent negatives include no palpable rectal lesions. - A few small-mouthed diverticula were found in the sigmoid colon. - No red swollen mucosa no pus identified in diverticular orifices. No luminal diverticuli. Impression: - No red swollen mucosa no pus identified in diverticular orifices. No luminal diverticuli. - Diverticulosis in the sigmoid colon. - No specimens collected. - No luminal diverticulitis. No pathology in regards to Crohn's disease or neoplasm. At this point the changes on CT may represent inflammation of the pericolonic tissue which could be diverticulitis. Alternatively may reflect previous inflammatory changes in this area. Recommendation: - Treat with 2 weeks of Augmentin. When she is pain-free or at the end of [address] scan to see if the inflammatory changes resolved. Procedure Code(s): - 68422, Sigmoidoscopy, flexible; diagnostic, including collection of specimen(s) by brushing or washing, when performed (separate procedure) Diagnosis Code(s): - K57.30, Diverticulosis of large intestine without perforation or abscess without bleeding CPT(R) - 2023 copyright [employer]. All Rights Reserved. The CPT codes, CCI edits and ICD codes generated are intended as suggestions and were generated based on input data. These codes are preliminary and upon gas dispatcher review may be revised to meet current compliance and payer requirements. The provider is responsible for the final determination of appropriate codes, and modifiers. Shabbir Dacosta MD This document has been electronically signed. Note Initiated:07/10/2025 Note Completed:07/10/2025 10:30 AM \\[email or web address]\Results\[email or web address]\[id number]
[2025-07-10] MEDS: PROPOFOL IV EMULSION 10 MG/ML 20 ML VIAL IV ONE (11:40)
[2025-07-10] MEDS: LIDOCAINE 2% 2 ML VIAL/AMP(20MG/ML) INFIL ONE ×3 (11:40)
--- NOTE | 2025-07-10 14:48 | Anesthesiology Progress Note ---
Date of Service July 10, 2025 Anesthesia Post Procedure Vital Signs Vital Signs: Temp Pulse Pulse Resp BP Pulse Ox O2 Del Method 07/10/25 11:15 36.5 C 62 18 116/76 96 Room Air 07/10/25 10:55 63 16 125/73 96 Room Air 07/10/25 10:40 54 L 16 125/72 96 Room Air 07/10/25 10:25 90 16 117/75 96 Room Air 07/10/25 09:46 36.8 C 62 16 129/82 96 Room Air 07/10/25 07:18 36.6 C 62 16 119/72 91 Room Air 07/09/25 22:33 36.7 C 51 L 16 123/83 95 Room Air 07/09/25 14:50 36.7 C 53 L 16 124/82 98 Room Air Pain Intensity Lower Abdomen: Pain Intensity: 2 Transfer of Care Handoff Completed per policy Notes Mental Status: alert / awake / arousable and participated in evaluation Nausea / Vomiting: adequately controlled Pain: adequately controlled Airway Patency, RR, SpO2: stable & adequate BP & HR: stable & adequate Hydration State: stable & adequate Anesthetic Complications: no major complications apparent and Pt Satisfied with anesthetic care
[2025-07-10 15:10] VITALS: BP 117/80; PULSE 69; RESP 16; TEMP 97.5; O2SAT 95
[2025-07-10] MEDS: AMOXICILLIN/CLAVULANATE 875 MG TAB PO SCH (16:46)
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
== END 2025-07-10 20:45 | disposition home or self-care (01) | DRG 392 ==
LOC: ED 16:06 → INTOOBSV 20:57 → OBSVTOIN 20:57 → SUATTDRO 20:57 → EDINP 20:57 → 3W 23:27